=== PATIENT | female | born 1955 | race Caucasian/White ===

== ENCOUNTER → 2021-12-13 | Outpatient (CLI) | payer MEDICARE, OTHER, SELFPAY | END | disposition home or self-care (01) | LOC: LABSPEC 16:55 | PROVIDERS: Visit Provider Urology | DX: R31.21 Asymptomatic microscopic hematuria (principal) | CPT/HCPCS: 87086; 87088 ==

== ENCOUNTER → 2024-04-04 | Outpatient (CLI) | payer MEDICARE, OTHER, SELFPAY ==
--- NOTE | 2024-04-04 15:00 | CT_ITS ---
STUDY: CARDIAC CALCIUM SCORING - CT CHEST REASON FOR EXAM: Female, 68 years old. VASCULAR DISEASE RADIATION DOSAGE (If Supplied By Facility): CTDIvol = ( 12.19 ) mGy, DLP = ( 219.42 ) mGycm TECHNIQUE: Axial non-enhanced images were acquired through the heart for the sole purpose of measuring coronary artery calcium. Individualized dose optimization techniques were used for this CT. COMPARISON: None. FINDINGS: Visualized surrounding anatomy: No acute disease. Left Main Coronary Artery: 0 Left Anterior Descending Artery: 173 Left Circumflex Artery: 0 Right Coronary Artery: 0 Other: Mild calcific plaquing of the thoracic aorta without evidence for aneurysm Total Calcium Score: 173 CT/Limited Chest CT Cardiac Only IMPRESSION: A Calcium Score of 173 places the patient in the approximate 75-90 percentile, based on the [employer] data calculator. Please go to: [email or web address] , for a description of the calculator. Electronically Signed: Ahmet Martínez MD at 16:23 [facility] ,
--- NOTE | 2024-04-18 08:28 | CA.SCORE ---
Calcium Scoring Date of Study:: 04/04/24 Indications Indications: Vascular disease Coronary Calcium Scoring: High-resolution Computed Tomographic imaging of the chest was performed on [04/04/2024], with particular attention paid to the coronary arteries. Images from the examination were analyzed for the presence and extent of coronary artery calcification , using coronary calcium quantification software. The patient tolerated the procedure well and there were no complications. The results of the coronary calcification analysis are provided below. Findings Coronary Artery Left Main (LM): 0 Left Anterior Descending (LAD): 173 Left Circumflex (LCX): 0 Right Coronary Artery (RCA): 0 Total Agatston Score: 173 Percentile Rankinth and 90th percentile Calcium Scoring Interpretation: Different methods to categorize the overall amount of coronary plaque. Overall amount CAC SIS Visual of coronary plaque P1 Mild -100 <2 1-2 vessels with mild amount of plaque P2 Moderate 101-300 3-4 1-2 vessels with moderate amount, 3 vessels with mild amount of plaque P3 Severe 301-999 5-7 3 vessels with moderate amount, 1 vessel with severe amount of plaque P4 Extensive >1000 >8 2-3 vessels with severe amount of plaque Calcium Score: Moderate: 1-2 vessels w/moderate amt, 3 vessels w/mild amt of plaque Conclusion: Mild atherosclerotic disease involving the left anterior descending artery with calcification.
== END | disposition home or self-care (01) ==
PROVIDERS: PCP Preventive Medicine Occupational Medicine; Referring Provider Physician Assistant; Visit Provider Physician Assistant
DX: I70.90 Unspecified atherosclerosis (principal)
CPT/HCPCS: 75571; 76380

== ENCOUNTER → 2025-03-25 | Outpatient (CLI) | payer MEDICARE, OTHER, SELFPAY ==
--- OUTSIDE RECORDS SUMMARY | 2025-03-25 07:10 | XMS RPT_ITS | CCD ---
Author Organization [facility] Care Team Providers Care In School Suspension Aide Name Role Phone RADHA VELASQUEZ DO Primary Care Physician [phone] Unknown, Referring Provider Unavailable Unav ailable Aimee, Dr. Francisco Galvan Attending Unavailable UNKNOWN, PCP Primary Care Unavailable David Frazier Admitting Unavailable David Frazier Referring Unavailable Aimee, Dr. Francisco Galvan Attending Unavailable UNKNOWN, PCP Primary Care Unavailable Unavailable Primary Care Provider Unavailchucky e SINDHU QUINN, RADHA Primary Care Unavailable MEAGHAN ROWELL MD Attending Unavailable RADHA VELASQUEZ DO Primary Care Unavailable FLY EDUARDO MD Consulting Unavailable FLY EDUARDO MD Attending Unavailable SINDHU QUINN, RADHA Primary Care Unavailable MEAGHAN ROWELL MD Attending Unavailable SINDHU QUINN, RADHA Primary Care Unavailable MEAGHAN ROWELL MD Attending Unavailable RADHA VELASQUEZ DO Primary Care Unavailable RADHA VELASQUEZ DO Attending Unavailable RADHA VELASQUEZ DO Attending Unavailable RADHA VELASQUEZ DO Primary Care Unavailable SINDHU QUINN, RADHA Primary Care Unavailable REMINGTON HAMPTON MD Attending Unavailable SINDHU QUINN, RADHA Primary Care Unavailable RADHA VELASQUEZ DO Attending Unavailable RADHA VELASQUEZ DO Primary Care Unavailable RADHA VELASQUEZ DO Attending Unavailable RADHA VELASQUEZ DO Primary Care Unavailable DANIELLA JOSEPH DO Attending Unavailable DANIELLA JOSEPH DO Attending Unavailable RADHA VELASQUEZ DO Primary Care Unavailable DANIELLA JOSEPH DO Attending Unavailable RADHA VELASQUEZ DO Primary Care Unavailable Dr. Radha Velasquez DO Referring Provider Jake SIDHU, Dr. Alonso Attending Physician [phone] Dr. Daniella Joseph DO Primary Care Physician Gavin Joseph Attending Unavailable Gavin Joseph Referring Unavailable Daniella Joseph Primary Care Unavailable Carine Saleem Attending Unavailable Carine Saleem Referring Unavailable Radha Velasquez Primary Care Unavailable Zia Stanley Attending Unavailable Carine Saleem Consulting Unavailable Carine Saleem Referring Unavailable Radha Velasquez Primary Care Unavailable Radha Velasquez Primary Care Unavailable Zia Stanley Attending Unavailable Carine Saleem Referring Unavailable Radha Velasquez Referring Unavailable Gavin Joseph Attending Unavailable Daniella Joseph Primary Care Unavailable Allergies Allergy Classification Reported Allergen(s) Allergy Type Date of Onset Reaction(s) Facility (1 source) ALLERGIES NOT ON FILE; Translations: [ALLERGIES NOT ON FILE] Propensity to adverse reactions (disorder) [facility] Medications Current Medications Medication Drug Class(es) Dates Sig (Normalized) Sig (Original) acetaminophen 325 mg / HYDROcodone bitartrate 5 mg oral tablet (1 source) Opioid Agonist Start: 02-04-2024 End: 02-07-2024 take 1 tablet by mouth every six hours as needed for pain Crawford 325- 5 mg oral tablet Dose = 1 tab(s), Oral, q6h, PRN as needed for pain, X 3 day(s), # 12 tab(s), 0 Refill(s), Back pain, 70.5 Start Date: 02/04/24 Stop Date: 02/07/24 Status: Ordered aspirin 81 mg delayed release oral tablet (3 sources) Platelet Aggregation Inhibitor, Nonsteroidal Anti-inflammatory Drug Start: 03-11-2024 aspirin 81 mg oral delayed release tablet Dose : 81 mg = 1 tab(s), Oral, Daily, 0 Refill(s) Start Date: 11/13/24 Status: Ordered Medication Dispense Status: Completed Total Allowed Fills: 1 Fills Dispensed: 0 clobetasol propionate 0.5 mg/ml topical cream (14 sources) Corticosteroid Start: 02-25-2025 Start: 02-22-2024 End: 02-25-2025 Clobetasol 0.05 % cream Disc ontinued 1 NMA TOPICAL TWICE A DAY February 22, 2024 12:00am February 25, 2025 2:29pm Start: 07-24-2022 End: 09-22-2022 clobetasol 0.05% topical cre am Apply 1 gretchen, Topical, BID, # 60 gram(s), 1 Refill(s), KRANTHI, Pharmacy: [id number], Cream, 163, cm, 07/24/22 10:51:00 EDT, Height, 69.1 Start Date: 07/24/22 Stop Date: 09/22/22 Status: Ordered estradiol 0.1 mg/ml vaginal cream (2 sources) Estrogen Start: 02-12-2019 estradiol 0.1 mg/g vaginal cream 0 Refill(s) Start Date: 02/12/19 Status: Ordered estradiol 0.1 mg/g vaginal cream (3 sources) Start: 02-12-2019 estradiol 0.1 mg/g vaginal cream 0 Refill(s) Start Date: 02/12/19 Status: Ordered fluconazole 100 mg oral tablet (1 source) Azole Antifungal Start: 05-02-2022 End: 05-11-2022 fluconazole 100 mg oral tablet See Instructions, 2 tabs p.o. day 1 then 1 tab p.o. days 2 through 10, # 11 tab(s), 0 Refill(s), 05/11/22 15:42:00 EST, Pharmacy: [facility] #[id number], Tinea cruris, 162.5, cm, 05/02/22 14:54:00 EST, Height, 67 Start Date: 05/02/22 Stop Date: 05/11/22 Status: Ordered meloxicam 15 mg oral tablet (1 source) Nonsteroidal Anti-inflammatory Drug Start: 09-29-2021 End: 01-27-2022 meloxicam 15 mg oral tablet Dose : 15 mg = 1 tab(s), Oral, qDay, # 30 tab(s), 3 Refill(s), Pharmacy: [facility], 164, cm, 09/27/21 11:05:00 EDT, Height Start Date: 09/29/21 Stop Date: 01/27/22 Status: Ordered 24 hr mirabegron 50 mg extended release oral tablet (20 sources) beta3-Adrenergic Agonist Start: 01-30-2024 End: 01-24-2025 take 1 tablet by mouth once daily Start: 12-22-2022 End: 12-17-2023 take 1 tablet by mouth once daily Myrbetriq 50 mg oral tablet, extended release Dose : 50 mg =, Oral, qDay, # 90 tab(s), 3 Refill(s), [facility]acy: [facility] #[id number], 163.2, cm, 11/20/22 9:43:00 EDT, Height, kg, 11/20/22 9:43:00 EDT, Dosing Weight Start Date: 12/22/22 Stop Date: 12/17/23 Status: Ordered Start: 05-02-2022 take 1 tablet by cheryl th once daily Myrbetriq 50 mg oral tablet, extended release Dose : 50 mg =, Oral, qDay, # 90 tab(s), 0 Refill(s) Start Date: 05/02/22 Status: Ordered Start: 07-04-2019 take 1 tablet by cheryl th once daily Myrbetriq 25 mg oral tablet, extended release Dose : 25 mg =, Oral, qDay, 0 Refill(s) Start Date: 07/04/19 Status: Ordered ondansetron 4 mg disintegrating oral tablet (1 source) Serotonin-3 Receptor Antagonist Start: 02-04-2024 End: 02-08-2024 ondansetron 4 mg oral tablet, disintegrating Dose : 4 mg = 1 tab(s), Oral, q6h, PRN Nausea/Vomiting, X 4 day(s), # 12 tab(s), 0 Refill(s), 02/08/24 11:18:00 AM EDT Start Date: 02/04/24 Stop Date: 02/08/24 Status: Ordered rosuvastatin calcium 10 mg oral tablet (5 sources) HMG-CoA Reductase Inhibitor Start: 02-20-2025 rosuvastatin 10 mg o ral tablet Dose : 10 mg = 1 tab(s), Oral, qDay, # 90 tab(s), 3 Refill(s), Pharmacy: [facility] #30, Hyperlipidemia LDL goal Start Date: 02/20/25 Status: Ordered Medication Dispense Status: Completed Quantity: 90.0 Unit: tab(s) Total Allowed Fills: 4 Fills Dispensed: 0 Indications: Hyperlipidemia, unspecified; Start: 01-30-2024 End: 03-30-2024 rosuvastatin 10 mg oral tabl et Dose : 10 mg = 1 tab(s), Oral, qDay, # 90 tab(s), 3 Refill(s), Pharmacy: [facility] #30, Hyperlipidemia LDL goal Start Date: 04/03/24 Status: Ordered Medication Dispense Status: Completed Quantity: 90.0 Unit: tab(s) Total Allowed Fills: 4 Fills Dispensed: 0 Indications: Hyperlipidemia, unspecified; ubrogepant 100 mg oral tablet (1 source) Start: 02-25-2025 take 1 tablet by mouth once valACYclovir 1000 mg oral tablet (20 sources) Herpesvirus Nucleoside Analog DNA Polymerase Inhibitor, Herpes Simplex Virus Nucleoside Analog DNA Polymerase Inhibitor, Herpes Zoster Virus Nucleoside Analog DNA Polymerase Inhibitor Start: 02-22-2024 Start: 08-01-2023 End: 03-27-2026 valACYclovir 1 g oral tablet Dose : 1 gram(s) = 1 tab(s), Oral, qDay, # 100 tab(s), 3 Refill(s), Pharmacy: [facility]30, Recurrent herpes labialis, 160, cm, 11/13/24 15:56:00 EDT, Height, 69.9, kg, 02/20/25 9:53:00 EDT, Dosing Weight Start Date: 02/20/25 Stop Date: 03/27/26 Status: Ordered Medication Dispense Status: Completed Quantity: 100.0 Unit: tab(s) Total Allowed Fills: 4 Fills Dispensed: 0 Indications: Herpesviral vesicular dermatitis; Start: 05-02-2022 End: 07-19-2023 valACYclovir 1 g oral tablet Dose : 1 gram(s) = 1 tab(s), Oral, qDay, # 90 tab(s), 3 Refill(s), Pharmacy: [facility]30, 163, cm, 07/24/22 10:51:00 EDT, Height, 69.1, kg, 07/24/22 10:51:00 EDT, Dosing Weight Start Date: 07/24/22 Stop Date: 07/19/23 Status: Ordered Start: 04-27-2021 End: 04-22-2022 valACYclovir 1 g oral tablet Dose : 1 gram(s) = 1 tab(s), Oral, qDay, # 90 tab(s), 3 Refill(s), Pharmacy: [facility] #30, 165.1, cm, 08/17/20 16:00:00 EDT, Height, 62.5, kg, 08/17/20 16:00:00 EDT, Dosing Weight Start Date: 04/27/21 Stop Date: 04/22/22 Status: Ordered Completed/Discontinued Medications Medication Drug Class(es) Dates Sig (Normalized) Sig (Original) alendronic acid 35 mg oral tablet (2 sources) Bisphosphonate Start: 05-31-2021 take 6-8 [oz_av] by mouth once daily alendronate 35 mg oral tablet Dose : 35 mg = 1 tab(s), Oral, qWeek, with 6-8 oz plain water, at least 30 minutes before first food, beverage, or medication of the day, # 4 tab(s), 5 Refill(s), Pharmacy: [facility]30, Osteopenia, 165.1, cm, 08/17/20 16:00:00 EDT, Heig... Start Date: 05/31/21 Status: Ordered baclofen 5 mg oral tablet (2 sources) gamma-Aminobutyric Acid-ergic Agonist Start: 02-22-2024 End: 03-11-2024 take 5 mg by mouth three times daily Baclofen 5 mg granules in packet Discontinued 5 mg PO THREE TIMES A DAY February 22, 2024 12:00am March 11, 2024 10:01am Start: 02-07-2024 End: 02-14-2024 baclofen 10 mg oral tablet D ose : 10 mg = 1 tab(s), Oral, TID, # 21 tab(s), 0 Refill(s), Pharmacy: [facility] #[id number], 163, cm, 02/06/24 13:05:00 EDT, Height, kg, 02/06/24 13:05:00 EDT, Dosing Weight Start Date: 02/07/24 Stop Date: 02/14/24 Status: Ordered celecoxib 200 mg oral capsule (15 sources) Nonsteroidal Anti-inflammatory Drug Start: 01-30-2024 End: 02-25-2025 take 1 capsule by mouth twice daily as needed Celecoxib 200 mg capsule Discontinued 200 mg PO TWICE A DAY as needed March 11, 2024 10:00am February 25, 2025 2:27pm Start: 10-02-2022 End: 11-01-2022 celecoxib 200 mg oral capsul e Dose : 200 mg = 1 cap(s), Oral, BID, PRN as needed for pain, # 180 cap(s), 1 Refill(s), Pharmacy: [facility] #30, 163.5, cm, 10/02/22 9:03:00 EDT, Height Start Date: 10/02/22 Stop Date: 11/01/22 Status: Ordered Start: 05-02-2022 celecoxib 200 mg oral capsule Dose : 200 mg = 1 cap(s), Oral, BID, # 60 cap(s), 1 Refill(s), Pharmacy: [id number], Right wrist pain, 162.5, cm, 05/02/22 14:54:00 EST, Height Start Date: 05/02/22 Status: Ordered diclofenac sodium 75 mg delayed release oral tablet (2 sources) Nonsteroidal Anti-inflammatory Drug Start: 02-22-2024 End: 03-11-2024 take 1 tablet by mouth twice daily Diclofenac Sodium 75 mg tablet,delayed release (DR/EC) Discontinued 75 mg PO TWICE A DAY February 22, 2024 12:00am March 11, 2024 10:01am Start: 02-06-2024 End: 02-20-2024 diclofenac sodium 75 mg oral delayed release tablet Dose : 75 mg = 1 tab(s), Oral, BID, Take with food Do not take with Celebrex, # 28 tab(s), 0 Refill(s), Pharmacy: [facility]/pharmacy #[id number], 163, cm, 02/06/24 13:05:00 EDT, Height, kg, 02/06/24 13:05:00 EDT, Dosing Weight Start Date: 02/06/24 Stop Date: 02/20/24 Status: Ordered SUMAtriptan 100 mg oral tablet (17 sources) Serotonin-1b and Serotonin-1d Receptor Agonist Start: 03-11-2024 End: 02-25-2025 take 1 tablet by mouth once as needed Sumatriptan Succinate 100 mg tablet Discontinued 100 mg PO ONCE as needed March 11, 2024 12:00am February 25, 2025 2:28pm Start: 08-01-2023 take 1 tablet by cheryl th every twenty-four hours SUMAtriptan 100 mg oral tablet Dose : 100 mg = 1 tab(s), Oral, qDay, PRN as needed for migraine headache, may repeat dose after 2 hours up to a maximum of 200 mg in 24 hours, # 30 tab(s), 2 Refill(s), Pharmacy: [facility], Migraine, 161.5, cm, 08/01/23 9:35:00 EDT, Height, kg, 08/01/23 9:35:00 EDT, Dosing Weight Start Date: 08/01/23 Status: Ordered Start: 01-19-2023 take 1 tablet by cheryl th every twenty-four hours SUMAtriptan 100 mg oral tablet Dose : 100 mg = 1 tab(s), Oral, qDay, PRN as needed for migraine headache, may repeat dose after 2 hours up to a maximum of 200 mg in 24 hours, # 30 tab(s), 1 Refill(s), Pharmacy: [facility] #30, 163, cm, 01/01/23 9:47:00 EDT, Height, kg, 01/01/23 9:47:00 EDT, Dosing Weight Start Date: 01/19/23 Status: Ordered Start: 05-02-2022 take 1 tablet by cheryl th every twenty-four hours SUMAtriptan 100 mg oral tablet Dose : 100 mg = 1 tab(s), Oral, qDay, PRN as needed for migraine headache, may repeat dose after 2 hours up to a maximum of 200 mg in 24 hours, # 30 tab(s), 1 Refill(s) Start Date: 05/02/22 Status: Ordered Start: 04-27-2021 take 1 tablet by cheryl th every twenty-four hours SUMAtriptan 100 mg oral tablet Dose : 100 mg = 1 tab(s), Oral, qDay, PRN as needed for migraine headache, may repeat dose after 2 hours up to a maximum of 200 mg in 24 hours, # 30 tab(s), 1 Refill(s), Pharmacy: [facility] #30, 165.1, cm, 08/17/20 16:00:00 EDT, Height, k... Start Date: 04/27/21 Status: Ordered Problems Active Problems Problem Classification Problem Date Documented Date Episodic/Chronic Acute cerebrovascular disease (20 sources) Occlusion and stenosis of middle cerebral artery; Translations: [Occlusion and stenosis of right middle cerebral artery] Onset: 11-01-2022 Chronic Blindness and vision defects (16 sources) Diplopia; Translations: [Diplopia] 07-04-2022 Episodic Conditions associated with dizziness or vertigo (2 sources) Lightheadedness 11-20-2024 Episodic Coronary atherosclerosis and other heart disease (3 sources) Coronary arteriosclerosis; Translations: [Atherosclerotic heart disease of [place] coronary artery without angina pectoris] Onset: 03-15-2025 02-25-2025 Chronic Disorders of lipid metabolism (20 sources) Hyperlipidemia; Translations: [Dyslipidemia] 09-28-2021 Chronic Headache; including migraine (20 sources) Migraine; Translations: [Migraine, unspecified, not intractable, without status migrainosus] 02-12-2019 Chronic Heart valve disorders (1 source) Nonrheumatic aortic (valve) stenosis; Translations: [Nonrheumatic aortic (valve) stenosis] Onset: 12-25-2024 Chronic Mycoses (1 source) Tinea cruris 05-02-2022 Episodic Other and ill-defined cerebrovascular disease (4 sources) Aneurysm of middle cerebral artery 08-01-2022 Chronic Other and ill-defined cerebrovascular disease (6 sources) Intracranial aneurysm; Translations: [Cerebral aneurysm, nonruptured] Chronic Other and ill-defined cerebrovascular disease (4 sources) Cerebral aneurysm, nonruptured; Translations: [Cerebral aneurysm, nonruptured] Onset: 11-01-2022 Chronic Other and ill-defined cerebrovascular disease (1 source) Cerebral arterial aneurysm; Translations: [Cerebral aneurysm, nonruptured] 11-01-2022 Chronic Other bone disease and musculoskeletal deformities (18 sources) Osteopenia 05-31-2021 Episodic Other connective tissue disease (1 source) Impingement syndrome of left shoulder region; Translations: [Impingement syndrome of left shoulder] Episodic Other diseases of bladder and urethra (4 sources) Overactive bladder 01-30-2024 Chronic Other female genital disorders (11 sources) Lesion of vulva 07-04-2022 Episodic Other nervous system disorders (16 sources) Paresthesia of right lower limb 05-02-2022 Episodic Other nervous system disorders (15 sources) Paresthesia of hand 07-04-2022 Episodic Other nervous system disorders (1 source) Paresthesia of skin; Translations: [Paresthesia of both hands] 02-22-2024 Episodic Other non-traumatic joint disorders (16 sources) Pain in wrist 05-02-2022 Episodic Other non-traumatic joint disorders (1 source) Pain of right wrist; Translations: [Pain in right wrist] 02-22-2024 Episodic Other screening for suspected conditions (not mental disorders or infectious disease) (11 sources) Magnetic resonance imaging of brain abnormal; Translations: [Stool DNA-based colorectal cancer screening positive] 07-20-2022 Episodic Peripheral and visceral atherosclerosis (3 sources) Arteriosclerotic vascular disease; Translations: [Unspecified atherosclerosis] Onset: 05-01-2024 03-11-2024 Chronic Residual codes; unclassified (4 sources) Immunization due 02-25-2020 Episodic Residual codes; unclassified (4 sources) Postmenopausal state 04-27-2021 Episodic Residual codes; unclassified (1 source) Past history of procedure; Translations: [Other specified postprocedural states] Episodic Residual codes; unclassified (1 source) Requires influenza virus vaccination 02-20-2025 Episodic Spondylosis; intervertebral disc disorders; other back problems (7 sources) Backache; Translations: [Dorsalgia, unspecified] Onset: 02-04-2024 Episodic Sprains and strains (1 source) Strain of muscle(s) and tendon(s) of the rotator cuff of left shoulder, subsequent encounter; Translations: [Left rotator cuff strain] Episodic Unclassified (20 sources) Patient encounter status 02-12-2019 Unclassified (15 sources) Statin declined 05-05-2021 Unclassified (13 sources) Tendinitis of shoulder region 07-04-2022 Unclassified (11 sources) Lichen sclerosus of vulva 08-21-2022 Unclassified (1 source) Mild aortic valve stenosis 12-26-2024 Viral infection (20 sources) Recurrent herpes simplex labialis 02-12-2019 Episodic Past or Other Problems Problem Classification Problem Date Documented Da te Episodic/Chronic Other skin disorders (2 sources) Rash and other nonspecific skin eruption; Translations: [Rash and other nonspecific skin eruption] Onset: 01-01-2023 Episodic Results Test Name Value Interpretation Reference Range Facility BD BONE DENSITY DEXA AXIAL S KELETONon 03-04-2025 BD BONE DENSITY DEXA AXIAL SKELETON ORIGINAL EXAMINATION: BONE DENSITOMETRY 03/04/2025 2:17 pm TECHNIQUE: A bone density dual x-ray absorptiometry (DEXA) scan was performed of the axial (e.g. hips, spine) and/or appendicular (e.g. radius) skeleton as appropriate. COMPARISON: 05/16/2021 HISTORY: ORDERING SYSTEM PROVIDED HISTORY: Reason for Exam: Osteoporosis Screening FINDINGS: T Score Left Femoral Neck: -1.6 Left Femoral Neck: 0.668 (g/cm2) T Score Left Hip: -0.7 Left Hip: 0.862 (g/cm2) T Score Lumbar Spine: -1.4 Lumbar Spine: 0.893 (g/cmd2) BMD Change from previous Hip: No significant change. BMD Change from previous Lumbar Spine: 0.034, 4% FRAX: 10 year fracture risk assessment Major osteoporotic fracture: 10% Hip fracture: 1.6% IMPRESSION: Osteopenia by WHO criteria. World Health Organization criteria: (Comparing with young normal sex matched population) - Normal: T-score at or above -1 SD (standard deviation) - Osteopenia: T-score between -1 and -2.5 SD - Osteoporosis: T-score at or below -2.5 SD The NOF recommends that FDA-approved medical therapies be considered in post-menopausal women and men age >/= 50 years with a: * Hip or vertebral fracture, or * T-score of /= 20% for major osteoporotic fractures or * >/= 3% for hip fractures All treatment decisions require clinical judgement and consideration of individual patient factors, including patient preferences, comorbidities, previous drug use, risk factors not captured in the FRAX registered model (e.g., frailty, falls, vitamin D deficiency, increased bone turnover, interval significant decline in bone density) and possible under- or over-estimation of fracture risk by FRAX. Interpreted by: Fly Weaver DO Preliminary Report By: Fly Weaver DO Electronically signed By Fly Weaver DO Dictated Date: 03/04/2025 3:22:16 PM Prelim Date: 03/04/2025 3:23:15 PM Sign Date: 03/04/2025 3:23:15 PM Ordering Provider: DANIELLA JOSEPH RP [facility] Cardiology Visit Reporton Cardiology Visit Report [facility] [address] [place] [address] OFFICE VISIT Date of Service: 02/25/25 MR#: [id number] Acct: [id number] Name: CYNDIE ROYAL Rep #: [id number] : 1955 Provider: Dr. Gavin Joseph MD Age/Sex: 69/F [place] [facility] [place] Status: Signed HPI HPI History of Present Illness Details: This lady diagnosed with CAD on calcium artery scoring last year, is here for follow-up visit. Denies any chest pains or shortness of breath. No orthopnea PND. No ankle edema. 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 Accompanied by: Self Is patient in pain?: No Allergies No Known Allergies Allergy (Unverified 02/25/25 14:27) Medications ???Medication ???Instructions ???Recorded ???Confirmed ???Type mirabegron 50 mg tablet,extended 50 mg PO QDAY 02/22/24 02/25/25 Hi story release 24 hr rosuvastatin 10 mg tablet 10 mg PO QDAY 02/22/24 02/25/25 Hi story valacyclovir 1 gram tablet 1,000 mg PO QDAY 02/22/24 02/25/25 History aspirin 81 mg tablet,delayed 81 mg PO QDAY 03/11/24 02/25/25 Hi story release (Adult Aspirin Regimen) clobetasol 0.05 % topical cream 1 applic topical .three times a 02/25/25 History week ubrogepant 100 mg tablet (Ubrelvy) 100 mg PO ONCE 02/25/25 02/25/25 History Have you fallen in the past year?: No PFSH Medical History Stroke Osteopenia Overactive bladder Lichen sclerosus of vulva Left shoulder tendonitis Surgical History History of cholecystectomy H/O hernia repair Family History Mother Malignant carcinoid tumor of lung Social History current occupational status: employed current occupation: School leisure activities: exercise Smoking Status: Never smoker alcohol intake: never substance use type: does not use caffeine: Yes what type of physical activity do you participate in: walking frequency: 3-4 times per week ROS Const Const: Negative for fatigue or weakness Eyes Eyes: Negative for change in vision ENT ENT: Negative for dizziness or balance problems Cardio Chest Pain: No Palpitations: No Edema: None Resp Respiratory: Negative for SOB with activity, SOB at rest or SOB orthopnea SOB lying down GI GI: Negative nausea or heartburn Musc Musc: Negative for balance problems Neuro Neuro: Positive for lightheadedness; Negative for dizziness, near syncope, syncope or weakness Endo Endo: Negative for fatigue Cardiology Exam Const Appearance: comfortable and no acute distress Nutritional Appearance: well nourished Neck Neck: no JVD Carotids: Negative bruit Chest Auscultation: Bilateral: Clear to Auscultation Cardio Rate: regular rate Rhythm: regular rhythm Heart sounds: S1 normal and S2 normal Neuro General: patient alert, patient awake and patient oriented x3 Extremities Lower Extremity Edema: None: Bilateral Supplemental Info Supplemental Information Diagnostics: Electrocardiogram Coronary Angiography CT Past Visits: Cardiology Visit Today Assessment and Plan Assessment and Plan (1) Coronary artery disease: Status: Chronic Plan: Continue aspirin. Risk factor modification. Check exercise stress Myoview to evaluate physiological significance and rule out silent ischemia. (2) Dyslipidemia: Status: Chronic Plan: Rosuvastatin. PCP managing. Recommend target LDL cholesterol less than 70 mg/dL. 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 Plan Details Follow Up: 12 Months Coding Level of Care Code Off vis,est,level 4 Diagnoses Coronary artery disease I25.10 Dyslipidemia E78.5 Occlusion of right middle cerebral artery I66.01 Coding Level of Care Code Off vis,est,level 4 Diagnoses Coronary artery disease I25.10 Dyslipidemia E78.5 Occlusion of right middle cerebral artery I66.01 Clinical Quality Measures Falls Risk Screening/Assistive Devices Have you fallen in the past year?: No 02/25/25 1440 Date Gavin Joseph MD Cosigner Signature: Date (if applicable) CC: Dr. Daniella Joseph, [facility] .Auto Diffon 02-23-2025 Basophil, Absolute 0.1 10 3/mcL Normal 0.0-0.3 [facility] Comment on above: Performed By: #### M G, LIPID, CMP, FT4, VIDH, CBC, GFR, TSHR, ANEU, ADIFF #### [place] [address] #### B12 #### [place] [address] Lymphocyte, Absolute 1.6 10 3/mcL Normal 0.9-4.3 [facility] Comment on above: Performed By: #### M G, LIPID, CMP, FT4, VIDH, CBC, GFR, TSHR, ANEU, ADIFF #### [address] [address] #### B12 #### [place] [address] Monocyte, Absolute 0.6 10 3/mcL Normal 0.1-1.4 [facility] Comment on above: Performed By: #### M G, LIPID, CMP, FT4, VIDH, CBC, GFR, TSHR, ANEU, ADIFF #### [place] [address] #### B12 #### [place] [address] .Auto DiffOrdered By: SYSTEM SYSTEM on 02-23-2025 Basophils/100 WBC (Bld) 1.5 % Normal 0.0-2.5 AO Workflow SS Comment on above: Performed By: #### M G, LIPID, CMP, FT4, VIDH, CBC, GFR, TSHR, ANEU, ADIFF #### [address] [address] #### B12 #### [address] [address] Eosinophil, Absolute 0.6 103/mcL Normal 0.0-0.7 AO Workflow SS Comment on above: Performed By: #### M G, LIPID, CMP, FT4, VIDH, CBC, GFR, TSHR, ANEU, ADIFF #### [place] [address] #### B12 #### [address] [address] Eosinophils/100 WBC (Bld) 10.3 % High 0.0-6.0 AO Workflow SS Comment on above: Performed By: #### M G, LIPID, CMP, FT4, VIDH, CBC, GFR, TSHR, ANEU, ADIFF #### [address] [address] #### B12 #### [address] [address] Lymphocytes/100 WBC (Bld) 27.4 % Normal 20.0-40.0 AO Workflow SS Comment on above: Performed By: #### M G, LIPID, CMP, FT4, VIDH, CBC, GFR, TSHR, ANEU, ADIFF #### [place] [address] #### B12 #### [address] [address] Monocytes/100 WBC (Bld) 10.8 % Normal 2.0-13.0 AO Workflow SS Comment on above: Performed By: #### M G, LIPID, CMP, FT4, VIDH, CBC, GFR, TSHR, ANEU, ADIFF #### [place] [address] #### B12 #### [address] [address] Neutrophils/100 WBC (Bld) 50.0 % Normal 50.0-75.0 AO Workflow SS Comment on above: Performed By: #### M G, LIPID, CMP, FT4, VIDH, CBC, GFR, TSHR, ANEU, ADIFF #### [address] [address] #### B12 #### [address] [address] .GFRon 02-23-2025 Estimated Glomerular Filtration Rate 94 ml/min/1.73sqm Normal [facility] Comment on above: Result Comment: Stages of Chronic Kidney Disease (CKD) Stage Description eGFR(ml/min/1.73 sq.m.) CKD 1 Normal kidney function or >=90 normal kindney function with possible kidney damage (ex. Proteinuria) CKD 2 Kidney damage with mild loss 60-89 of kidney function CKD 3a Mild to moderate loss of kidney 45-59 function CKD 3b Moderate to severe loss of 30-44 of kindey function CKD 4 Severe loss of kidney function 15-29 CKD 5 Kidney failure <15 Note: (go live 2024) the eGFR calculation was updated to the 2020 CKD-EPI creatinine equation without a race factor to calculate the eGFR results. Performed By: #### L IPID, CMP, GFR #### [address] [address] .NEUABSon 02-23-2025 Neutrophil, Absolute 2.9 10 3/mcL Normal 2.3-8.1 [facility] Comment on above: Performed By: #### M G, LIPID, CMP, FT4, VIDH, CBC, GFR, TSHR, ANEU, ADIFF #### [address] [address] #### B12 #### [address] [address] [id number] By: SYSTEM SYSTEM on 02-23-2025 Cobalamin (Vitamin B12) [Mass/Vol] 297 pg/mL Normal 211-911 AH ADM SS Comment on above: Performed By: #### L IPID, CMP, GFR #### [address] [address] CBCOrdered By: SYSTEM SYSTEM on 02-23-2025 Erythrocyte distribution width (RBC) [Ratio] 13.2 % Normal 11.5-15.5 AO Workflow SS Comment on above: Performed By: #### M G, LIPID, CMP, FT4, VIDH, CBC, GFR, TSHR, ANEU, ADIFF #### [place] [address] #### B12 #### [place] [address] Hematocrit (Bld) [Volume fraction] 40.4 % Normal 34.0-46.0 AO Workflow SS Comment on above: Performed By: #### M G, LIPID, CMP, FT4, VIDH, CBC, GFR, TSHR, ANEU, ADIFF #### [place] [address] #### B12 #### [place] [address] MCH (RBC) [Entitic mass] 34.4 pg High 27.0-33.0 AO Workflow SS Comment on above: Performed By: #### M G, LIPID, CMP, FT4, VIDH, CBC, GFR, TSHR, ANEU, ADIFF #### [place] [address] #### B12 #### [place] [address] MCHC 34.5 G/dL Normal 32.0-36.0 AO Workflow SS Comment on above: Performed By: #### M G, LIPID, CMP, FT4, VIDH, CBC, GFR, TSHR, ANEU, ADIFF #### [place] [address] #### B12 #### [place] [address] MCV (RBC) [Entitic vol] 99.5 fL High 80.0-99.0 AO Workflow SS Comment on above: Performed By: #### M G, LIPID, CMP, FT4, VIDH, CBC, GFR, TSHR, ANEU, ADIFF #### [place] [address] #### B12 #### [place] [address] Platelet mean volume (Bld) [Entitic vol] 7.7 fL Normal 6.6-10.5 AO Workflow SS Comment on above: Performed By: #### M G, LIPID, CMP, FT4, VIDH, CBC, GFR, TSHR, ANEU, ADIFF #### [place] [address] #### B12 #### [place] [address] CBCon 02-23-2025 Hgb 14.0 G/dL Normal 12.0-16.0 [facility] Comment on above: Performed By: #### M G, LIPID, CMP, FT4, VIDH, CBC, GFR, TSHR, ANEU, ADIFF #### [place] [address] #### B12 #### [place] [address] Platelet 284 10 3/mcL Normal 150-450 [facility] Comment on above: Performed By: #### M G, LIPID, CMP, FT4, VIDH, CBC, GFR, TSHR, ANEU, ADIFF #### [place] [address] #### B12 #### [place] [address] RBC 4.06 10 6/mcL Low 4.10-5.30 [facility] Comment on above: Performed By: #### M G, LIPID, CMP, FT4, VIDH, CBC, GFR, TSHR, ANEU, ADIFF #### [place] [address] #### B12 #### [place] [address] WBC 5.8 10 3/mcL Normal 4.5-10.8 [facility] Comment on above: Performed By: #### M G, LIPID, CMP, FT4, VIDH, CBC, GFR, TSHR, ANEU, ADIFF #### [address] [address] #### B12 #### [place] [id number] CMPon 02-23-2025 Albumin Level 3.8 G/dL Normal 3.4-4.8 [facility] Comment on above: Performed By: #### M G, LIPID, CMP, FT4, VIDH, CBC, GFR, TSHR, ANEU, ADIFF #### [place] [address] #### B12 #### [address] [address] ALT [Catalytic activity/Vol] 36 U/L Normal 14-59 [facility] Comment on above: Performed By: #### M G, LIPID, CMP, FT4, VIDH, CBC, GFR, TSHR, ANEU, ADIFF #### [place] [address] #### B12 #### [place] [address] AST [Catalytic activity/Vol] 30 U/L Normal 10-40 [facility] Comment on above: Performed By: #### M G, LIPID, CMP, FT4, VIDH, CBC, GFR, TSHR, ANEU, ADIFF #### [address] [address] #### B12 #### [place] [id number] Bili Total 0.5 mg/dL Normal 0.2-1.0 [facility] Comment on above: Result Comment: Use of this assay is not recommended for patients undergoing treatment with eltrombopag due to the potential for falsely elevated results. Performed By: #### M G, LIPID, CMP, FT4, VIDH, CBC, GFR, TSHR, ANEU, ADIFF #### [place] [id number] #### B12 #### [place] [address] BUN/Creatinine Ratio 24 ratio Normal 7-27 [facility] Comment on above: Performed By: #### M G, LIPID, CMP, FT4, VIDH, CBC, GFR, TSHR, ANEU, ADIFF #### [address] [address] #### B12 #### [address] [address] Total Protein 6.8 G/dL Normal 6.4-8.2 [facility] Comment on above: Performed By: #### M G, LIPID, CMP, FT4, VIDH, CBC, GFR, TSHR, ANEU, ADIFF #### [address] [address] #### B12 #### [address] [address] CMPOrdered By: SYSTEM SYSTEM on 02-23-2025 Albumin/Globulin [Mass ratio] 1.3 {ratio} Normal 1.1-2.5 AO ADM SS Comment on above: Performed By: #### M G, LIPID, CMP, FT4, VIDH, CBC, GFR, TSHR, ANEU, ADIFF #### [address] [address] #### B12 #### [address] [address] ALP [Catalytic activity/Vol] 82 U/L Normal 40-135 AO ADM SS Comment on above: Performed By: #### M G, LIPID, CMP, FT4, VIDH, CBC, GFR, TSHR, ANEU, ADIFF #### [address] [address] #### B12 #### [address] [address] Calcium [Mass/Vol] 9.0 mg/dL Normal 8.4-10.2 AO ADM SS Comment on above: Performed By: #### M G, LIPID, CMP, FT4, VIDH, CBC, GFR, TSHR, ANEU, ADIFF #### [address] [address] #### B12 #### [address] [address] Chloride [Moles/Vol] 104 mmol/L Normal 98-107 AO A DM SS Comment on above: Performed By: #### M G, LIPID, CMP, FT4, VIDH, CBC, GFR, TSHR, ANEU, ADIFF #### [address] [address] #### B12 #### [place] [address] CO2 [Moles/Vol] 32 mmol/L High 23-31 AO ADM SS Comment on above: Performed By: #### M G, LIPID, CMP, FT4, VIDH, CBC, GFR, TSHR, ANEU, ADIFF #### [place] [address] #### B12 #### [place] [address] Creatinine [Mass/Vol] 0.66 mg/dL Normal 0.51-0.95 AO ADM SS Comment on above: Performed By: #### M G, LIPID, CMP, FT4, VIDH, CBC, GFR, TSHR, ANEU, ADIFF #### [place] [address] #### B12 #### [place] [address] Electrolyte Balance 4.0 mEq/L Normal 4.0-15.0 AO AD M SS Comment on above: Performed By: #### M G, LIPID, CMP, FT4, VIDH, CBC, GFR, TSHR, ANEU, ADIFF #### [place] [address] #### B12 #### [place] [address] Globulin 3.0 G/dL Normal 2.7-4.4 AO ADM SS Comment on above: Performed By: #### M G, LIPID, CMP, FT4, VIDH, CBC, GFR, TSHR, ANEU, ADIFF #### [place] [address] #### B12 #### [facility] [address] [place], [place] [address] Glucose [Mass/Vol] 100 mg/dL Normal 83-110 AO ADM SS Comment on above: Performed By: #### M G, LIPID, CMP, FT4, VIDH, CBC, GFR, TSHR, ANEU, ADIFF #### [address] [address] #### B12 #### [address] [address] Potassium [Moles/Vol] 4.1 mmol/L Normal 3.5-5.1 AO ADM SS Comment on above: Performed By: #### M G, LIPID, CMP, FT4, VIDH, CBC, GFR, TSHR, ANEU, ADIFF #### [place] [address] #### B12 #### [place] [address] Sodium [Moles/Vol] 140 mmol/L Normal 136-145 AO ADM SS Comment on above: Performed By: #### M G, LIPID, CMP, FT4, VIDH, CBC, GFR, TSHR, ANEU, ADIFF #### [place] [address] #### B12 #### [place] [address] Urea nitrogen [Mass/Vol] 16 mg/dL Normal 7-18 AO ADM SS Comment on above: Performed By: #### M G, LIPID, CMP, FT4, VIDH, CBC, GFR, TSHR, ANEU, ADIFF #### [place] [address] #### B12 #### [place] [address] [id number] By: SYSTEM SYSTEM on 02-23-2025 Free T4 [Mass/Vol] 0.87 ng/dL Normal 0.76-1.46 AO ADM SS Comment on above: Order Comment: Order ed by Discern Performed By: #### L IPID, CMP, GFR #### [place] [address] LABORATORYOrdered By: SYSTEM SYSTEM on 02-23-2025 25-hydroxyvitamin D3 [Mass/Vol] 33.6 ng/mL Invalid Interpretation Code AO ADM SS Comment on above: Interpretive Data: I nterpretive Values Based on Total 25(OH) Vitamin D: Deficient <20 ng/mL Insufficient 20 - <30 ng/mL Sufficient 30-100 ng/mL Albumin BCP dye [Mass/Vol] 3.8 G/dL Normal 3.4 - 4.8 G/dL AO ADM SS ALT With P-5'-P [Catalytic activity/Vol] 36 U/L Normal 14 - 59 U/L AO ADM SS AST With P-5'-P [Catalytic activity/Vol] 30 U/L Normal 10 - 40 U/L AO ADM SS Basophils (Bld) [#/Vol] 0.1 103/mcL Normal 0.0 - 0.3 10^3/mcL AO Workflow SS Bilirubin [Mass/Vol] 0.5 mg/dL Normal 0.2 - 1 .0 mg/dL AO ADM SS Comment on above: Interpretive Data: U se of this assay is not recommended for patients undergoing treatment with eltrombopag due to the potential for falsely elevated results. GLOMERULAR FILTRATION RATE/1.73 SQ M.PREDICTED:ARVRAT:PT :SER/PLAS/BLD:QN:CREA TININE-BASED FORMULA (CKD-EPI 2020) 94 ml/min/1.73sqm Invalid Interpretation Code AO Chemistry S Comment on above: Interpretive Data: Stages of Chronic Kidney Disease (CKD) Stage Description eGFR(ml/min/1.73 sq.m.) CKD 1 Normal kidney function or >=90 normal kindney function with possible kidney damage (ex. Proteinuria) CKD 2 Kidney damage with mild loss 60-89 of kidney function CKD 3a Mild to moderate loss of kidney 45-59 function CKD 3b Moderate to severe loss of 30-44 of kindey function CKD 4 Severe loss of kidney function 15-29 CKD 5 Kidney failure <15 Note: (go live 2024) the eGFR calculation was updated to the 2020 CKD-EPI creatinine equation without a race factor to calculate the eGFR results. Hemoglobin (Bld) [Mass/Vol] 14.0 G/dL Normal 12.0 - 16.0 G/dL AO Workflow SS Lymphocytes (Bld) [#/Vol] 1.6 103/mcL Normal 0.9 - 4.3 10^3/mcL AO Workflow SS Monocytes (Bld) [#/Vol] 0.6 103/mcL Normal 0.1 - 1.4 10^3/mcL AO Workflow SS Neutrophils (Bld) [#/Vol] 2.9 103/mcL Normal 2.3 - 8.1 10^3/mcL AO Workflow SS Platelets (Bld) [#/Vol] 284 103/mcL Normal 150 - 450 10^3/mcL AO Workflow SS Protein [Mass/Vol] 6.8 G/dL Normal 6.4 - 8.2 G/dL AO ADM SS RBC (Bld) [#/Vol] 4.06 106/mcL Low 4.10 - 5.3 0 10^6/mcL AO Workflow SS Urea nitrogen/Creatinine [Mass ratio] 24 ratio Normal 7 - 27 ratio AO ADM SS WBC (Bld) [#/Vol] 5.8 103/mcL Normal 4.5 - 10.8 10^3/mcL AO Workflow SS LIPIDOrdered By: Brittney rene on 02-23-2025 Cholesterol [Mass/Vol] 172 mg/dL Normal 0-200 AO ADM SS Comment on above: Interpretive Data: C holesterol Reference Interval: Less than 200 Desirable 200-239 Borderline high risk 240 and above High risk Result Comment: Chol esterol Reference Interval: Less than 200 Desirable 200-239 Borderline high risk 240 and above High risk Performed By: #### L IPID, CMP, GFR #### [facility] [address] [address] Cholesterol in HDL [Mass/Vol] 57 mg/dL Normal 40-60 AO ADM SS Comment on above: Performed By: #### L IPID, CMP, GFR #### [facility] [address] [address] Cholesterol in LDL [Mass/Vol] 95 mg/dL Normal 0-130 AO ADM SS Comment on above: Performed By: #### L IPID, CMP, GFR #### [facility] [place] [address] [place], [place] [address] Triglyceride [Mass/Vol] 100 mg/dL Normal 0-150 AO ADM SS Comment on above: Interpretive Data: T riglyceride Reference Interval: Less than 150 Normal 150-199 Borderline high risk 200-499 High risk 500 or higher Very high risk Result Comment: Trig lyceride Reference Interval: Less than 150 Normal 150-199 Borderline high risk 200-499 High risk 500 or higher Very high risk Performed By: #### L IPID, CMP, GFR #### [address] [address] MGOrdered By: SYSTEM SYSTEM on 02-23-2025 Magnesium [Mass/Vol] 2.2 mg/dL Normal 1.8-2.4 AO A DM SS Comment on above: Performed By: #### M G, LIPID, CMP, FT4, VIDH, CBC, GFR, TSHR, ANEU, ADIFF #### [address] [address] #### B12 #### [facility] [address] [place] [address] TSHROrdered By: SYSTEM SYSTE M on 02-23-2025 TSH Qn 6.57 m[IU]/L High 0.36-3.74 AO ADM SS Comment on above: Performed By: #### M G, LIPID, CMP, FT4, VIDH, CBC, GFR, TSHR, ANEU, ADIFF #### [address] [address] #### B12 #### [facility] [address] [place] [address] VIDHon 02-23-2025 Vit. D 25-Hydroxy 33.6 ng/mL Normal [facility] Comment on above: Result Comment: Inte rpretive Values Based on Total 25(OH) Vitamin D: Deficient <20 ng/mL Insufficient 20 - <30 ng/mL Sufficient 30-100 ng/mL Performed By: #### L IPID, CMP, GFR #### [address] [address] [place] MAMMOGRAM SCREENING BILAT ERAL W/TOMOon 08-11-2024 MA MAMMOGRAM SCREENING BILATERAL W/GUNNER ORIGINAL FROM: [address] [address] PROCEDURE FOR: CYNDIE ROYAL [address] [place] [id number] Home: PID#: [id number] Exam#: [id number] : 1955 Age: 68 TO: RADHA VELASQUEZ DO [address] [place] [address] Fax: NO FAX EXAMINATION: SCREENING DIGITAL BILATERAL MAMMOGRAM WITH TOMOSYNTHESIS, 08/11/2024 11:16 am TECHNIQUE: Screening mammography of the bilateral breasts was performed with tomosynthesis. 2D standard and 3D tomosynthesis combination imaging performed through both breasts in the MLO and CC projection. Computer aided detection was utilized in the interpretation of this exam. COMPARISON: March 06, 2023, June 06, 2021, March 05, 2020 HISTORY: Breast cancer screening. FINDINGS: BREAST DENSITY: The breasts are heterogeneously dense, which may obscure small masses. There are bilateral benign-type calcifications. There is no significant mass, architectural distortion or microcalcification. Fibroglandular pattern is stable. IMPRESSION: No mammographic evidence of malignancy. Continued screening with annual mammograms is recommended. Deann Piperzick risk calculations, generated with the history provided, report this patient's 10 year risk and lifetime risk for developing breast cancer at 5.6% and 9.5%, respectively. Based on this assessment tool, if the patient's calculated lifetime risk is below 20%, then the patient is considered at average risk for developing breast cancer. If the patient's calculated lifetime risk is at or above 20%, then the patient is considered high risk for developing breast cancer and may be a candidate for supplemental breast MRI screening in addition to annual mammographic screening per the [place] [employer]. BIRADS: MAMMOGRAM BI-RADS: 2: Benign finding RECALL: 1 year screening RECALL TYPE: mammo LETTER SENT: Normal BI-RADS 1 and 2 Interpreted by: Danielle Koch Preliminary Report By: Danielle Koch Electronically signed By Danielle Koch Dictated Date: 08/11/2024 3:22:38 PM Prelim Date: 08/11/2024 3:27:05 PM Sign Date: 08/11/2024 3:27:05 PM Ordering Provider: RADHA VELASQUEZ Financial Administrative Assistant: CYNDY THOMAS RT(Eladio)(M)(CT) letter sent: Normal BI-RADS 1 and 2 Mammogram BI-RADS: 2 Benign Normal [facility] Coronary Angiography CTon Coronary Angiography CT [facility] Imaging Services [address] [place] [address] 04/18/[address] MR#: [id number] Acct: [id number] Name: CYNDIE ROYAL Rep #: [id number] : 1955 68 From: Zia Stanley MD PCP: Dr. Radha Velasquez, DO Status:REG CLI Y Location: CT Calcium Scoring Date of Study:: 04/04/24 Indications Indications: Vascular disease Coronary Calcium Scoring: High-resolution Computed Tomographic imaging of the chest was performed on [04/04/2024], with particular attention paid to the coronary arteries. Images from the examination were analyzed for the presence and extent of coronary artery calcification , using coronary calcium quantification software. The patient tolerated the procedure well and there were no complications. The results of the coronary calcification analysis are provided below. Findings Coronary Artery Left Main (LM): 0 Left Anterior Descending (LAD): 173 Left Circumflex (LCX): 0 Right Coronary Artery (RCA): 0 Total Agatston Score: 173 Percentile Rankinth and 90th percentile Calcium Scoring Interpretation: Different methods to categorize the overall amount of coronary plaque. Overall amount CAC SIS Visual of coronary plaque P1 Mild -100 <2 1-2 vessels with mild amount of plaque P2 Moderate 101-300 3-4 1-2 vessels with moderate amount, 3 vessels with mild amount of plaque P3 Severe 301-999 5-7 3 vessels with moderate amount, 1 vessel with severe amount of plaque P4 Extensive >1000 >8 2-3 vessels with severe amount of plaque Calcium Score: Moderate: 1-2 vessels w/moderate amt, 3 vessels w/mild amt of plaque Conclusion: Mild atherosclerotic disease involving the left anterior descending artery with calcification. 04/18/24828 Date Zia Stanley MD Cosigner Signature (if applicable): Date CC: LEROY Meeks; Dr. Zia Stanley MD; Dr. Radha Velasquez DO Signed Normal [facility] Limited Chest CT Cardiac Onl yon 04-04-[address] Cardiac Only [facility] Imaging Services [address] [place], [place] [address] Limited Chest CT Cardiac Only MR#: [id number] Acct: [id number] Name: YCNDIE ROYAL Rep #: [id number] : 1955 F 68 From: Ahmet Martínez MD PCP: Dr. Radha Velasquez DO Status: REG CLI Study: Limited Chest CT Cardiac Only Date of Exam: Exam# [id number] Ordering Dr: Carine Saleem [id number] STUDY: CARDIAC CALCIUM SCORING - CT CHEST REASON FOR EXAM: Female, 68 years old. VASCULAR DISEASE RADIATION DOSAGE (If Supplied By Facility): CTDIvol = ( 12.19 ) mGy, DLP = ( 219.42 ) mGycm TECHNIQUE: Axial non-enhanced images were acquired through the heart for the sole purpose of measuring coronary artery calcium. Individualized dose optimization techniques were used for this CT. COMPARISON: None. FINDINGS: Visualized surrounding anatomy: No acute disease. Left Main Coronary Artery: 0 Left Anterior Descending Artery: 173 Left Circumflex Artery: 0 Right Coronary Artery: 0 Other: Mild calcific plaquing of the thoracic aorta without evidence for aneurysm Total Calcium Score: 173 CT/Limited Chest CT Cardiac Only IMPRESSION: A Calcium Score of 173 places the patient in the approximate 75-90 percentile, based on the AGUIRRE data calculator. Please go to: [email or web address]-nhlbi.org/Tre [email or web address]/input.[email or web address] , for a description of the calculator. Electronically Signed: Ahmet Martínez MD at 16:23 EST Reading Location ID and State: [address] [place] [address] Tel , Service support , CC: LEROY Meeks; Dr. Radha Velasquez DO Drill Press Tender: Signed [facility] .GFRon 03-19-2024 GFR 97 ml/min/1.73sqm [facility] Comment on above: Result Comment: GFR Population mean for , Non- Americans Ages 20-29 = 116 mL/min/1.73 sq.m. Ages 30-39 = 107 mL/min/1.73 sq.m. Ages 40-49 = 99 mL/min/1.73 sq.m. Ages 50-59 = 93 mL/min/1.73 sq.m. Ages 60-69 = 85 mL/min/1.73 sq.m. Ages 70+ = 75 mL/min/1.73 sq.m. Chronic Kidney Disease: Less than 60 mL/min/1.73 square meters End Stage Renal Disease: Less than 15 mL/min/1.73 square meters Performed By: #### L IPID, CMP, GFR #### [address] [address] GFR Non- 80 ml/min/1.73sqm [facility] Comment on above: Result Comment: GFR Population mean for , Non- Americans Ages 20-29 = 116 mL/min/1.73 sq.m. Ages 30-39 = 107 mL/min/1.73 sq.m. Ages 40-49 = 99 mL/min/1.73 sq.m. Ages 50-59 = 93 mL/min/1.73 sq.m. Ages 60-69 = 85 mL/min/1.73 sq.m. Ages 70+ = 75 mL/min/1.73 sq.m. Chronic Kidney Disease: Less than 60 mL/min/1.73 square meters End Stage Renal Disease: Less than 15 mL/min/1.73 square meters Performed By: #### L IPID, CMP, GFR #### [address] [address] CMPon 03-19-2024 Albumin Level 3.7 G/dL Normal 3.4-4.8 [facility] Comment on above: Performed By: #### L IPID, CMP, GFR #### [address] [address] Albumin/Globulin [Mass ratio] 1.2 {ratio} Normal 1.1-2.5 [facility] Comment on above: Performed By: #### L IPID, CMP, GFR #### [address] [address] ALP [Catalytic activity/Vol] 97 U/L Normal 40-135 [facility] Comment on above: Performed By: #### L IPID, CMP, GFR #### [address] [address] ALT [Catalytic activity/Vol] 37 U/L Normal 14-59 [facility] Comment on above: Performed By: #### L IPID, CMP, GFR #### [address] [address] AST [Catalytic activity/Vol] 29 U/L Normal 10-40 [facility] Comment on above: Performed By: #### L IPID, CMP, GFR #### [address] [address] Bili Total 0.6 mg/dL Normal 0.2-1.0 [facility] Comment on above: Result Comment: Use of this assay is not recommended for patients undergoing treatment with eltrombopag due to the potential for falsely elevated results. Performed By: #### L IPID, CMP, GFR #### [address] [address] BUN/Creatinine Ratio 25 ratio Normal 7-27 [facility] Comment on above: Performed By: #### L IPID, CMP, GFR #### [address] [address] Calcium [Mass/Vol] 9.0 mg/dL Normal 8.4-10.2 [facility] Comment on above: Performed By: #### L IPID, CMP, GFR #### [address] [address] Chloride [Moles/Vol] 104 mmol/L Normal 98-107 [facility] Comment on above: Performed By: #### L IPID, CMP, GFR #### [address] [address] CO2 [Moles/Vol] 32 mmol/L High 23-31 [facility] Comment on above: Performed By: #### L IPID, CMP, GFR #### [address] [address] Creatinine [Mass/Vol] 0.72 mg/dL Normal 0.55-1.02 [facility] Comment on above: Result Comment: Test ing performed on Siemens Dimension EXL analyzer using a modified kinetic Carolyn technique. Performed By: #### L IPID, CMP, GFR #### [address] [address] Electrolyte Balance 6.0 mEq/L Normal 4.0-15.0 [facility] Comment on above: Performed By: #### L IPID, CMP, GFR #### [address] [address] Globulin 3.0 G/dL Normal [facility] Comment on above: Performed By: #### L IPID, CMP, GFR #### [address] [address] Glucose [Mass/Vol] 86 mg/dL Normal 80-115 [facility] Comment on above: Performed By: #### L IPID, CMP, GFR #### [address] [address] Potassium [Moles/Vol] 5.1 mmol/L Normal 3.5-5.1 [facility] Comment on above: Performed By: #### L IPID, CMP, GFR #### [facility] [address] [place], [place] [address] Sodium [Moles/Vol] 142 mmol/L Normal 136-145 [facility] Comment on above: Performed By: #### L IPID, CMP, GFR #### [address] [place], [place] [address] Total Protein 6.7 G/dL Normal 6.4-8.2 [facility] Comment on above: Performed By: #### L IPID, CMP, GFR #### [address] [place], [place] [address] Urea nitrogen [Mass/Vol] 18 mg/dL Normal 7-18 [facility] Comment on above: Performed By: #### L IPID, CMP, GFR #### [address] [place], [place] [address] LABORATORYOrdered By: SYSTEM SYSTEM on 03-19-2024 Albumin BCP dye [Mass/Vol] 3.7 G/dL Normal 3.4 - 4.8 G/dL AO ADM SS Albumin/Globulin [Mass ratio] 1.2 {ratio} Normal 1.1 - 2.5 ratio AO ADM SS ALP [Catalytic activity/Vol] 97 U/L Normal 40 - 135 U/L AO ADM SS ALT With P-5'-P [Catalytic activity/Vol] 37 U/L Normal 14 - 59 U/L AO ADM SS AST With P-5'-P [Catalytic activity/Vol] 29 U/L Normal 10 - 40 U/L AO ADM SS Bilirubin [Mass/Vol] 0.6 mg/dL Normal 0.2 - 1 .0 mg/dL AO ADM SS Comment on above: Interpretive Data: U se of this assay is not recommended for patients undergoing treatment with eltrombopag due to the potential for falsely elevated results. Calcium [Mass/Vol] 9.0 mg/dL Normal 8.4 - 10. 2 mg/dL AO ADM SS Chloride [Moles/Vol] 104 mmol/L Normal 98 - 10 7 mmol/L AO ADM SS CO2 [Moles/Vol] 32 mmol/L High 23 - 31 mmol/L AO ADM SS Creatinine [Mass/Vol] 0.72 mg/dL Normal 0.55 - 1.02 mg/dL AO ADM SS Comment on above: Interpretive Data: T esting performed on Siemens Dimension EXL analyzer using a modified kinetic Carolyn technique. Electrolyte Balance 6.0 mEq/L Normal 4.0 - 15 .0 mEq/L AO ADM SS GFR/1.73 sq M.predicted among blacks MDRD (S/P/Bld) [Vol rate/Area] 97 ml/min/1.73sqm Invalid Interpretation Code AO Chemistry S Comment on above: Interpretive Data: GFR Population mean for , Non- Americans Ages 20-29 = 116 mL/min/1.73 sq.m. Ages 30-39 = 107 mL/min/1.73 sq.m. Ages 40-49 = 99 mL/min/1.73 sq.m. Ages 50-59 = 93 mL/min/1.73 sq.m. Ages 60-69 = 85 mL/min/1.73 sq.m. Ages 70+ = 75 mL/min/1.73 sq.m. Chronic Kidney Disease: Less than 60 mL/min/1.73 square meters End Stage Renal Disease: Less than 15 mL/min/1.73 square meters GFR/1.73 sq M.predicted among non-blacks MDRD (S/P/Bld) [Vol rate/Area] 80 ml/min/1.73sqm Invalid Interpretation Code AO Chemistry S Comment on above: Interpretive Data: GFR Population mean for , Non- Americans Ages 20-29 = 116 mL/min/1.73 sq.m. Ages 30-39 = 107 mL/min/1.73 sq.m. Ages 40-49 = 99 mL/min/1.73 sq.m. Ages 50-59 = 93 mL/min/1.73 sq.m. Ages 60-69 = 85 mL/min/1.73 sq.m. Ages 70+ = 75 mL/min/1.73 sq.m. Chronic Kidney Disease: Less than 60 mL/min/1.73 square meters End Stage Renal Disease: Less than 15 mL/min/1.73 square meters Globulin 3.0 G/dL Invalid Interpretation Code AO ADM SS Glucose [Mass/Vol] 86 mg/dL Normal 80 - 115 mg/dL AO ADM SS Potassium [Moles/Vol] 5.1 mmol/L Normal 3.5 - 5.1 mmol/L AO ADM SS Protein [Mass/Vol] 6.7 G/dL Normal 6.4 - 8.2 G/dL AO ADM SS Sodium [Moles/Vol] 142 mmol/L Normal 136 - 145 mmol/L AO ADM SS Urea nitrogen [Mass/Vol] 18 mg/dL Normal 7 - 18 mg/dL AO ADM SS Urea nitrogen/Creatinine [Mass ratio] 25 ratio Normal 7 - 27 ratio AO ADM SS LABORATORYOrdered By: Stephanie Galloway on 03-19-2024 Cholesterol [Mass/Vol] 166 mg/dL Normal 0 - 200 mg/dL AO ADM SS Comment on above: Interpretive Data: C holesterol Reference Interval: Less than 200 Desirable 200-239 Borderline high risk 240 and above High risk Cholesterol in HDL [Mass/Vol] 55 mg/dL Normal 40 - 60 mg/dL AO ADM SS Cholesterol in LDL [Mass/Vol] 83 mg/dL Normal 0 - 130 mg/dL AO ADM SS Triglyceride [Mass/Vol] 139 mg/dL Normal 0 - 150 mg/dL AO ADM SS Comment on above: Interpretive Data: T riglyceride Reference Interval: Less than 150 Normal 150-199 Borderline high risk 200-499 High risk 500 or higher Very high risk LIPIDon 03-19-2024 Cholesterol [Mass/Vol] 166 mg/dL Normal 0-200 [facility] Comment on above: Result Comment: Chol esterol Reference Interval: Less than 200 Desirable 200-239 Borderline high risk 240 and above High risk Performed By: #### L IPID, CMP, GFR #### [address] [address] Cholesterol in HDL [Mass/Vol] 55 mg/dL Normal 40-60 [facility] Comment on above: Performed By: #### L IPID, CMP, GFR #### [address] [address] Cholesterol in LDL [Mass/Vol] 83 mg/dL Normal 0-130 [facility] Comment on above: Performed By: #### L IPID, CMP, GFR #### [address] [address] Triglyceride [Mass/Vol] 139 mg/dL Normal 0-150 [facility] Comment on above: Result Comment: Trig lyceride Reference Interval: Less than 150 Normal 150-199 Borderline high risk 200-499 High risk 500 or higher Very high risk Performed By: #### L IPID, CMP, GFR #### [address] [address] ANCAon 08-22-2023 C-ANCA 2.7 Normal 0.0-20.0 [facility] ([place]) Comment on above: Result Comment: NEW REFERENCE RANGES FOR ANCA BY EIA: NEGATIVE <= 20 UNITS WEAK POSITIVE 21 - 30 UNITS MOD. TO STRONG POSITIVE > 30 UNITS A positive result indicates the presence of NV-3 antibodies and suggests the possibility of certain autoimmune vasculitides such as Flakito?s granulomatosis. A negative result indicates no NV-3 antibody or levels below the negative cut-off of the assay. These results were obtained with the [employer] QUANTA Lite NV-3 IgG EMERSON. NV-3 values obtained with different manufacturers? assay methods may not be used interchangeably. The magnitude of the reported IgG level cannot be correlated to an endpoint titer. Results of this assay should be used in conjunction with clinical findings. Performed By: #### 0 03124, 689148, ENA1 #### [address] [place] [address] #### SPE, ANCA #### [address] [address] Cytoplasmic Neutro. Ab. See Below Normal [facility] ([place]) Comment on above: Performed By: #### 0 45492, 921234, ENA1 #### [address] [place] [address] #### SPE, ANCA #### [address] [address] P-ANCA 2.7 Normal 0.0-20.0 [facility] ([place]) Comment on above: Result Comment: REFE RENCE RANGES FOR ANCA BY EIA: NEGATIVE <= 20 UNITS WEAK POSITIVE 21 - 30 UNITS MOD. TO STRONG POSITIVE > 30 UNITS A positive result indicates the presence of MPO antibodies and suggests the possibility of certain autoimmune vasculitides such as microscopic polyarteritis, and crescentic glomerulonephritis. A negative result indicates no MPO antibody or levels below the negative cut-off of the assay. These results were obtained with the [employer] QUANTA Lite MPO IgG EMERSON. MPO values obtained with different manufacturers? assay methods may not be used interchangeably. The magnitude of the reported IgG level cannot be correlated to an endpoint titer. Results of this assay should be used in conjunction with clinical findings. Performed By: #### 0 92489, 061984, ENA1 #### [address] [address] #### SPE, ANCA #### [address] [address] B1WBon 08-21-2023 Vitamin B1 Whl Bld 109.0 nmol/L Normal 66.5-200.0 [facility] ([place]) Comment on above: Result Comment: This test was developed and its performance characteristics determined by [facility]. It has not been cleared or approved by the Food and Drug Administration. Performed At: [address] [id number] Tian Montana MD Ph:[phone] Performed By: #### 0 36544, 991337, ENA1 #### [place] [address] #### SPE, ANCA #### [place] [address] SPEon 08-21-2023 SPE Interpretation Normal serum protein electrophoresis pattern. No abnormality detected. Normal [facility]) Comment on above: Result Comment: Elec tronically Signed by: RJ JACOBO MD 08/21/2023 14:37 EDT Performed By: #### 0 83035, 734566, ENA1 #### [address] [address] #### SPE, ANCA #### [address] [address] Albumin 3.8 G/dL Normal 3.3-5.0 [facility] ([place]) Comment on above: Performed By: #### 0 76833, 437261, ENA1 #### [address] [address] #### SPE, ANCA #### [address] [address] Alpha 1 0.2 G/dL Normal 0.1-0.4 [facility] ([place]) Comment on above: Performed By: #### 0 28973, 153249, ENA1 #### [address] [address] #### SPE, ANCA #### [address] [place] [address] Alpha 2 0.9 G/dL Normal 0.6-1.2 [facility] ([place]) Comment on above: Performed By: #### 0 34879, 691349, ENA1 #### [place] [address] #### SPE, ANCA #### [address] [place] [address] Beta 1.2 G/dL Normal 0.6-1.3 [facility] ([place]) Comment on above: Performed By: #### 0 72763, 544294, ENA1 #### [address] [place] [address] #### SPE, ANCA #### [address] [place] [address] Gamma 0.7 G/dL Normal 0.7-1.6 [facility] ([place]) Comment on above: Performed By: #### 0 19246, 459532, ENA1 #### [address] [place] [address] #### SPE, ANCA #### [place] [address] DYMW1at 08-19-2023 Vitamin B6 Lvl 10.8 UG/L Normal 3.4-65.2 [facility] ([place]) Comment on above: Result Comment: This test was developed and its performance characteristics determined by [facility]. It has not been cleared or approved by the Food and Drug Administration. Deficiency: <3.4 Marginal: 3.4 - 5.1 Adequate: >5.1 Performed At: [address] [id number] Tian Montana MD Ph:[phone] Performed By: #### 0 03494, 744972, ENA1 #### [address] [address] #### SPE, ANCA #### [address] [address] ENA1on 08-17-2023 Centromere <0.2 Normal <1.0 [facility] ([place]) Comment on above: Result Comment: Anti -centromere antibody is used as in aid in diagnosis of systemic sclerosis. Clinical correlation is required. Test Methodology: Multiplex flow immunoassay. Performed By: [place] [address] Shipyard Laborer: Louis Penn III, M.D. CLIA#: [id number] Performed By: #### 0 76935, 846393, ENA1 #### [place] [address] #### SPE, ANCA #### [place] [address] Centromere Ab Qualitative Negative Normal Negative [facility] ([place]) Comment on above: Result Comment: Perf ormed By: [place] [address] Shipyard Laborer: Louis Penn III, M.D. CLIA#: [id number] Performed By: #### 0 85693, 480828, ENA1 #### [address] [address] [address] #### SPE, ANCA #### [place] [id number] Chromatin Ab Qualitative Negative Normal Negative [facility] ([place]) Comment on above: Result Comment: Perf ormed By: [place] [address] Shipyard Laborer: Louis Penn III, M.D. CLIA#: [id number] Performed By: #### 0 42724, 373166, ENA1 #### [place] [address] #### SPE, ANCA #### [place] [address] Chromatin Antibody <0.2 Normal <1.0 [facility] ([place]) Comment on above: Result Comment: Test Methodology: Multiplex flow immunoassay. Anti-chromatin antibody is used as an aid in diagnosis of systemic lupus erythematosus. Clinical correlation is required. Test Methodology: Multiplex flow immunoassay. Performed By: [facility] [place] [address] Shipyard Laborer: Louis Penn III, M.D. CLIA#: [id number] Performed By: #### 0 41678, 491223, ENA1 #### [address] [address] #### SPE, ANCA #### [address] [address] ADRIAN 1 Antibody <0.2 Normal <1.0 [facility] ([place]) Comment on above: Result Comment: Perf ormed By: [place] [address] Shipyard Laborer: Louis Penn III, M.D. CLIA#: [id number] Performed By: #### 0 47342, 458164, ENA1 #### [address] [address] #### SPE, ANCA #### [place] [id number] ADRIAN 1 Antibody Qual Negative Normal Negative [facility] ([place]) Comment on above: Result Comment: Anti -ADRIAN-1 antibody is used as an aid in diagnosis of polymyositis and dermatomyositis especially with pulmonary involvement. A negative result cannot rule out polymyositis or dermatomyositis. Clinical correlation is required. Test Methodology: Multiplex flow immunoassay. Performed By: [facility] [place] [address] Shipyard Laborer: Louis Penn III, M.D. CLIA#: [id number] Performed By: #### 0 64610, 318653, ENA1 #### [address] [address] #### SPE, ANCA #### [address] [address] Ribosomal GROUND INSTRUCTOR BASIC <0.2 Normal <1.0 [facility] ([place]) Comment on above: Result Comment: Perf ormed By: [place] [address] Shipyard Laborer: Louis Penn III, M.D. CLIA#: [id number] Performed By: #### 0 80233, 104635, ENA1 #### [address] [place], [place] [address] #### SPE, ANCA #### [address] [address] Ribosomal GROUND INSTRUCTOR BASIC Qualitative Negative Normal Negative [facility] ([place]) Comment on above: Result Comment: Anti -Ribosomal RNA (Ribosomal P) antibody is used as an aid in diagnosis of systemic autoimmune diseases especially systemic lupus erythematosus and mixed connective tissue disease. Cross-reactivity with Anti-reyes antibody is not uncommon. Clinical correlation is required. Test Methodology: Multiplex flow immunoassay. Performed By: [place] [address] Shipyard Laborer: Louis Penn III, M.D. CLIA#: [id number] Performed By: #### 0 13072, 276054, ENA1 #### [address] [address] #### SPE, ANCA #### [address] [address] GROUND INSTRUCTOR BASIC Antibody <0.2 Normal <1.0 [facility] ([place]) Comment on above: Result Comment: Anti -GROUND INSTRUCTOR BASIC antibody is used as an aid in diagnosis of systemic autoimmune diseases especially systemic lupus erythematosus and mixed connective tissue disease. Cross-reactivity with Anti-reyes antibody is not uncommon. Clinical correlation is required. Test Methodology: Multiplex flow immunoassay. Performed By: [facility] [place] [address] Shipyard Laborer: Louis Penn III, M.D. CLIA#: [id number] Performed By: #### 0 12203, 147033, ENA1 #### [address] [place], [place] [address] #### SPE, ANCA #### [facility] [address] [place] [address] GROUND INSTRUCTOR BASIC Antibody Qualitative Negative Normal Negative [facility] ([place]) Comment on above: Result Comment: Perf ormed By: [place] [address] Shipyard Laborer: Louis Penn III, M.D. CLIA#: [id number] Performed By: #### 0 49813, 345804, ENA1 #### [address] [address] #### SPE, ANCA #### [address] [address] Scleroderma Ab, IgG Qualitative Negative Normal Negative [facility] ([place]) Comment on above: Result Comment: Perf ormed By: [place] [address] Shipyard Laborer: Louis Penn III, M.D. CLIA#: [id number] Performed By: #### 0 76257, 122863, ENA1 #### [address] [address] #### SPE, ANCA #### [address] [address] Scleroderma IgG Ab <0.2 Normal <1.0 [facility] ([place]) Comment on above: Result Comment: Scl- 70/Scleroderma antibody test is used as an aid in diagnosis of systemic sclerosis especially the diffuse cutaneous form. A negative result cannot rule out systemic sclerosis. The final interpretation should consider clinical picture and other test results such as anti-centromere antibody. Test Methodology: Multiplex flow immunoassay. Performed By: [facility] [address] [place] [address] Shipyard Laborer: Louis Penn III, M.D. CLIA#: [id number] Performed By: #### 0 80480, 479237, ENA1 #### [address] [address] #### SPE, ANCA #### [address] [address] Sm Antibody <0.2 Normal <1.0 [facility] ([place]) Comment on above: Result Comment: Perf ormed By: [facility] [address] [place] [address] Shipyard Laborer: Louis Penn III, M.D. CLIA#: [id number] Performed By: #### 0 45944, 725142, ENA1 #### [address] [address] #### SPE, ANCA #### [address] [address] Sm Antibody Qual Negative Normal Negative [facility] ([place]) Comment on above: Result Comment: Anti -Sm (Reyes) antibody is used as an aid in diagnosis of systemic lupus erythematosus and its presence is associated with renal disease. A negative result cannot rule out systemic lupus erythematosus. Clinical correlation is required. Test Methodology: Multiplex flow immunoassay. Performed By: [facility] [address] [place] [address] Shipyard Laborer: Louis Penn III, M.D. CLIA#: [id number] Performed By: #### 0 45245, 351353, ENA1 #### [place] [address] #### SPE, ANCA #### [address] [address] SS-A Antibody <0.2 Normal <1.0 [facility] ([place]) Comment on above: Result Comment: Test Methodology: Multiplex flow immunoassay. Anti-SSA (anti-Ro) antibody is used as an aid in diagnosis of a variety of systemic autoimmune diseases, Sjogren's syndrome among others. Clinical correlation is required. Test Methodology: Multiplex flow immunoassay. Performed By: [facility] [address] [place] [address] Shipyard Laborer: Louis Penn III, M.D. CLIA#: [id number] Performed By: #### 0 71848, 355807, ENA1 #### [address] [place], [place] [address] #### SPE, ANCA #### [address] [address] SS-B Antibody <0.2 Normal <1.0 [facility] ([place]) Comment on above: Result Comment: Anti -SSB (anti-La) antibody is used as an aid in diagnosis of a variety of systemic autoimmune diseases, especially for Sjogren's syndrome and systemic lupus erythematosus. Clinical correlation is required. Test Methodology: Multiplex flow immunoassay. Performed By: [place] [address] Shipyard Laborer: Louis Penn III, M.D. CLIA#: [id number] Performed By: #### 0 18482, 353946, ENA1 #### [place] [id number] #### SPE, ANCA #### [address] [address] SSA Antibody Qualitative Negative Normal Negative [facility] ([place]) Comment on above: Result Comment: Perf ormed By: [place] [address] Shipyard Laborer: Louis Penn III, M.D. CLIA#: [id number] Performed By: #### 0 20735, 930931, ENA1 #### [place] [address] #### SPE, ANCA #### [place] [id number] SSB Antibody Qualitative Negative Normal Negative [facility] ([place]) Comment on above: Result Comment: Perf ormed By: [place] [address] Shipyard Laborer: Louis Penn III, M.D. CLIA#: [id number] Performed By: #### 0 08661, 819896, ENA1 #### [place] [address] #### SPE, ANCA #### [address] [address] LABORATORYOrdered By: Tha Thorpe on 08-16-2023 Protein [Mass/Vol] 6.7 G/dL Normal 5.7 - 8.2 G/dL ADM SS Comment on above: Interpretive Data: * *Note - New Reference Range in effect 19 SPEon 08-16-2023 Total Protein 6.7 G/dL Normal 5.7-8.2 [facility] ([place]) Comment on above: Result Comment: No te - New Reference Range in effect 19 Performed By: #### 0 44890, 405788, ENA1 #### [address] [address] #### SPE, ADDISON #### [place] [id number] [place] [address] [address] ANGIOGRAPHY HEAD W/ CONTR Loretta 03-06-2023 CT ANGIOGRAPHY HEAD W/ CONTRAST ORIGINAL HISTORY: Cerebral aneurysm COMPARISON: 25 July 2022 TECHNIQUE: CT angiography of the head following uncomplicated administration of intravenous contrast, with 3D post-acquisition processing and with results displayed in source images, sagittal reconstructions through the carotid siphons, maximum intensity projections and volume rendered images. This exam was performed according to our departmental dose optimization program, and includes the following measures where applicable: automated exposure control, adjustment of the mAs and/or kVp according to patient size and/or exam, and an iterative reconstruction algorithm. FINDINGS: There is no patent right middle cerebral artery; there is extensive collateral circulation mainly involving the lenticulostriate arteries. The more distal branches of the right middle cerebral artery are less robust than their left counterparts. No aneurysm is seen. The left internal carotid artery in its major branches are patent without occlusion, significant stenosis or aneurysm. The major vessels of the posterior circulation are unremarkable in appearance. There is a circulatory pattern on the right. 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 No aneurysm is seen. Interpreted by: Med De La Cruz MD Preliminary Report By: Med De La Cruz MD Electronically signed By Med De La Cruz MD Dictated Date: 03/06/2023 11:23:57 AM Prelim Date: 03/06/2023 11:31:21 AM Sign Date: 03/06/2023 11:31:21 AM Ordering Provider: MEAGHAN Conklin [facility] ([place]) MA MAMMOGRAM SCREENING BILAT ERAL W/TOMOon 03-06-2023 MA MAMMOGRAM SCREENING BILATERAL W/GUNNER ORIGINAL FROM: [address] [address] PROCEDURE FOR: CYNDIE ROYAL [address] [place] [id number] Home: PID#: [id number] Exam#: [id number] : 1955 Age: 67 TO: RADHA VELASQUEZ DO [address] [place] [address] [place] [address] Fax: NO FAX EXAMINATION: SCREENING DIGITAL BILATERAL MAMMOGRAM WITH TOMOSYNTHESIS, 03/06/2023 11:35 am TECHNIQUE: Screening mammography of the bilateral breasts was performed with tomosynthesis. 2D standard and 3D tomosynthesis combination imaging performed through both breasts in the MLO and CC projection. Computer aided detection was utilized in the interpretation of this exam. COMPARISON: 06/06/2021, 03/05/2020 HISTORY: Breast cancer screening. FINDINGS: BREAST DENSITY: Heterogeneously dense There are benign appearing calcifications in both breasts. There are no significant masses or calcifications. IMPRESSION: No mammographic evidence of malignancy. Continued screening with annual mammograms is recommended. Tyrkatey zick risk calculations, generated with the history provided, report this patient's 10 year risk and lifetime risk for developing breast cancer at 4.8% and 8.6%, respectively. Based on this assessment tool, if the patient's calculated lifetime risk is below 20%, then the patient is considered at average risk for developing breast cancer. If the patient's calculated lifetime risk is at or above 20%, then the patient is considered high risk for developing breast cancer and may be a candidate for supplemental breast MRI screening in addition to annual mammographic screening per the [place] [employer]. BIRADS: MAMMOGRAM BI-RADS: 2: Benign finding RECALL: 1 year screening RECALL TYPE: mammo LETTER SENT: Normal BI-RADS 1 and 2 Interpreted by: Fly Conrad MD Preliminary Report By: Fly Conrad MD Electronically signed By Fly Conrad MD Dictated Date: 03/06/2023 3:59:58 PM Prelim Date: 03/06/2023 4:06:16 PM Sign Date: 03/06/2023 4:06:16 PM Ordering Provider: RADHA VELASQUEZ Financial Administrative Assistant: CHUN ZACARIAS RT(R)(M)(CT) UNDERWRITING ANALYST letter sent: Normal BI-RADS 1 and 2 Mammogram BI-RADS: 2 Benign Normal [facility] ([place]) .GFRon 02-07-2023 GFR 103 ml/min/1.73sqm Normal [facility] ([place]) Comment on above: Result Comment: GFR Population mean for , Non- Americans Ages 20-29 = 116 mL/min/1.73 sq.m. Ages 30-39 = 107 mL/min/1.73 sq.m. Ages 40-49 = 99 mL/min/1.73 sq.m. Ages 50-59 = 93 mL/min/1.73 sq.m. Ages 60-69 = 85 mL/min/1.73 sq.m. Ages 70+ = 75 mL/min/1.73 sq.m. Chronic Kidney Disease: Less than 60 mL/min/1.73 square meters End Stage Renal Disease: Less than 15 mL/min/1.73 square meters Performed By: #### C MP, LIPID, GFR #### [address] [address] GFR Non- 85 ml/min/1.73sqm Normal [facility] ([place]) Comment on above: Result Comment: GFR Population mean for , Non- Americans Ages 20-29 = 116 mL/min/1.73 sq.m. Ages 30-39 = 107 mL/min/1.73 sq.m. Ages 40-49 = 99 mL/min/1.73 sq.m. Ages 50-59 = 93 mL/min/1.73 sq.m. Ages 60-69 = 85 mL/min/1.73 sq.m. Ages 70+ = 75 mL/min/1.73 sq.m. Chronic Kidney Disease: Less than 60 mL/min/1.73 square meters End Stage Renal Disease: Less than 15 mL/min/1.73 square meters Performed By: #### C MP, LIPID, GFR #### [address] [address] CMPon 02-07-2023 Albumin Level 3.7 G/dL Normal 3.4-4.8 [facility] ([place]) Comment on above: Performed By: #### C MP, LIPID, GFR #### [address] [address] Albumin/Globulin [Mass ratio] 1.2 {ratio} Normal 1.1-2.5 [facility] ([place]) Comment on above: Performed By: #### C MP, LIPID, GFR #### [address] [address] ALP [Catalytic activity/Vol] 78 U/L Normal 40-135 [facility] ([place]) Comment on above: Performed By: #### C MP, LIPID, GFR #### [address] [address] ALT [Catalytic activity/Vol] 28 U/L Normal 14-59 [facility] ([place]) Comment on above: Performed By: #### C MP, LIPID, GFR #### [address] [address] AST [Catalytic activity/Vol] 21 U/L Normal 10-40 [facility] ([place]) Comment on above: Performed By: #### C MP, LIPID, GFR #### [address] [address] Bili Total 0.5 mg/dL Normal 0.2-1.0 [facility] ([place]) Comment on above: Result Comment: Use of this assay is not recommended for patients undergoing treatment with eltrombopag due to the potential for falsely elevated results. Performed By: #### C MP, LIPID, GFR #### [address] [address] BUN/Creatinine Ratio 23 ratio Normal 7-27 [facility] ([place]) Comment on above: Performed By: #### C MP, LIPID, GFR #### [address] [address] Calcium [Mass/Vol] 8.9 mg/dL Normal 8.4-10.2 [facility] ([place]) Comment on above: Performed By: #### C MP, LIPID, GFR #### [address] [address] Chloride [Moles/Vol] 105 mmol/L Normal 98-107 [facility] ([place]) Comment on above: Performed By: #### C MP, LIPID, GFR #### [address] [address] CO2 [Moles/Vol] 30 mmol/L Normal 23-31 [facility] ([place]) Comment on above: Performed By: #### C MP, LIPID, GFR #### [address] [address] Creatinine [Mass/Vol] 0.69 mg/dL Normal 0.55-1.02 [facility] ([place]) Comment on above: Performed By: #### C MP, LIPID, GFR #### [address] [address] Electrolyte Balance 7.0 mEq/L Normal 4.0-15.0 [facility] ([place]) Comment on above: Performed By: #### C MP, LIPID, GFR #### [address] [address] Globulin 3.0 G/dL Normal [facility] ([place]) Comment on above: Performed By: #### C MP, LIPID, GFR #### [address] [address] Glucose [Mass/Vol] 86 mg/dL Normal 80-115 [facility] ([place]) Comment on above: Performed By: #### C MP, LIPID, GFR #### [address] [address] Potassium [Moles/Vol] 4.9 mmol/L Normal 3.5-5.1 [facility] ([place]) Comment on above: Performed By: #### C MP, LIPID, GFR #### [address] [address] Sodium [Moles/Vol] 142 mmol/L Normal 136-145 [facility] ([place]) Comment on above: Performed By: #### C MP, LIPID, GFR #### [address] [address] Total Protein 6.7 G/dL Normal 6.4-8.2 [facility] ([place]) Comment on above: Performed By: #### C MP, LIPID, GFR #### [id number] [place], [place] [address] Urea nitrogen [Mass/Vol] 16 mg/dL Normal 7-18 [facility] ([place]) Comment on above: Performed By: #### C MP, LIPID, GFR #### [id number] [place], [place] [address] LABORATORYOrdered By: SYSTEM SYSTEM on 02-07-2023 Albumin BCP dye [Mass/Vol] 3.7 G/dL Invalid Interpretation Code 3.4 - 4.8 G/dL AO ADM SS Albumin/Globulin [Mass ratio] 1.2 {ratio} Invalid Interpretation Code 1.1 - 2.5 ratio AO ADM SS ALP [Catalytic activity/Vol] 78 U/L Invalid Interpretation Code 40 - 135 U/L AO ADM SS ALT With P-5'-P [Catalytic activity/Vol] 28 U/L Invalid Interpretation Code 14 - 59 U/L AO ADM SS AST With P-5'-P [Catalytic activity/Vol] 21 U/L Invalid Interpretation Code 10 - 40 U/L AO ADM SS Bilirubin [Mass/Vol] 0.5 mg/dL Invalid Interpretation Code 0.2 - 1.0 mg/dL AO ADM SS Comment on above: Interpretive Data: U se of this assay is not recommended for patients undergoing treatment with eltrombopag due to the potential for falsely elevated results. Calcium [Mass/Vol] 8.9 mg/dL Invalid Interpretation Code 8.4 - 10.2 mg/dL AO ADM SS Chloride [Moles/Vol] 105 mmol/L Invalid Interpretation Code 98 - 107 mmol/L AO ADM SS CO2 [Moles/Vol] 30 mmol/L Invalid Interpretation Code 23 - 31 mmol/L AO ADM SS Creatinine [Mass/Vol] 0.69 mg/dL Invalid Interpretation Code 0.55 - 1.02 mg/dL AO ADM SS Electrolyte Balance 7.0 mEq/L Invalid Interpretation Code 4.0 - 15.0 mEq/L AO ADM SS GFR/1.73 sq M.predicted among blacks MDRD (S/P/Bld) [Vol rate/Area] 103 ml/min/1.73sqm Invalid Interpretation Code AO Chemistry S Comment on above: Interpretive Data: GFR Population mean for , Non- Americans Ages 20-29 = 116 mL/min/1.73 sq.m. Ages 30-39 = 107 mL/min/1.73 sq.m. Ages 40-49 = 99 mL/min/1.73 sq.m. Ages 50-59 = 93 mL/min/1.73 sq.m. Ages 60-69 = 85 mL/min/1.73 sq.m. Ages 70+ = 75 mL/min/1.73 sq.m. Chronic Kidney Disease: Less than 60 mL/min/1.73 square meters End Stage Renal Disease: Less than 15 mL/min/1.73 square meters GFR/1.73 sq M.predicted among non-blacks MDRD (S/P/Bld) [Vol rate/Area] 85 ml/min/1.73sqm Invalid Interpretation Code AO Chemistry S Comment on above: Interpretive Data: GFR Population mean for , Non- Americans Ages 20-29 = 116 mL/min/1.73 sq.m. Ages 30-39 = 107 mL/min/1.73 sq.m. Ages 40-49 = 99 mL/min/1.73 sq.m. Ages 50-59 = 93 mL/min/1.73 sq.m. Ages 60-69 = 85 mL/min/1.73 sq.m. Ages 70+ = 75 mL/min/1.73 sq.m. Chronic Kidney Disease: Less than 60 mL/min/1.73 square meters End Stage Renal Disease: Less than 15 mL/min/1.73 square meters Globulin 3.0 G/dL Invalid Interpretation Code AO ADM SS Glucose [Mass/Vol] 86 mg/dL Invalid Interpretation Code 80 - 115 mg/dL AO ADM SS Potassium [Moles/Vol] 4.9 mmol/L Invalid Interpretation Code 3.5 - 5.1 mmol/L AO ADM SS Protein [Mass/Vol] 6.7 G/dL Invalid Interpretation Code 6.4 - 8.2 G/dL AO ADM SS Sodium [Moles/Vol] 142 mmol/L Invalid Interpretation Code 136 - 145 mmol/L AO ADM SS Urea nitrogen [Mass/Vol] 16 mg/dL Invalid Interpretation Code 7 - 18 mg/dL AO ADM SS Urea nitrogen/Creatinine [Mass ratio] 23 ratio Invalid Interpretation Code 7 - 27 ratio AO ADM SS LABORATORYOrdered By: Marcia Edmond on 09-27-2023 Cholesterol [Mass/Vol] 241 mg/dL Invalid Interpretation Code 0 - 200 mg/dL AO ADM SS Comment on above: Interpretive Data: C holesterol Reference Interval: Less than 200 Desirable 200-239 Borderline high risk 240 and above High risk Cholesterol in HDL [Mass/Vol] 54 mg/dL Invalid Interpretation Code 40 - 60 mg/dL AO ADM SS Cholesterol in LDL [Mass/Vol] 160 mg/dL Invalid Interpretation Code 0 - 130 mg/dL AO ADM SS Triglyceride [Mass/Vol] 137 mg/dL Invalid Interpretation Code 0 - 150 mg/dL AO ADM SS Comment on above: Interpretive Data: T riglyceride Reference Interval: Less than 150 Normal 150-199 Borderline high risk 200-499 High risk 500 or higher Very high risk LIPIDon 02-07-2023 Cholesterol [Mass/Vol] 241 mg/dL High 0-200 [facility] ([place]) Comment on above: Result Comment: Chol esterol Reference Interval: Less than 200 Desirable 200-239 Borderline high risk 240 and above High risk Performed By: #### C MP, LIPID, GFR #### [address] [address] Cholesterol in HDL [Mass/Vol] 54 mg/dL Normal 40-60 [facility] ([place]) Comment on above: Performed By: #### C MP, LIPID, GFR #### [address] [address] Cholesterol in LDL [Mass/Vol] 160 mg/dL High 0-130 [facility] ([place]) Comment on above: Performed By: #### C MP, LIPID, GFR #### [address] [address] Triglyceride [Mass/Vol] 137 mg/dL Normal 0-150 [facility] ([place]) Comment on above: Result Comment: Trig lyceride Reference Interval: Less than 150 Normal 150-199 Borderline high risk 200-499 High risk 500 or higher Very high risk Performed By: #### C MP, LIPID, GFR #### [address] [address] Final Surgical Pathology Rep [facility] 01-10-2023 Final Surgical Pathology Report . Pathology Reports Accession: Collected Date/Time: Received Date/Time: Pathologist: [id number] 01/01/2023 10:32 EDT 01/02/2023 10:38 EDT MD RJ JACOBO Final Surgical Pathology Report DIAGNOSIS: LEFT VULVA, BIOPSY: - BENIGN SQUAMOUS LINED CYST WITH MILD CHRONIC INFLAMMATION CLINICAL INFORMATION: POSSIBLE LICHEN SCLEROSIS VS RAY, VULVAR RASH Procedure: PUNCH BIOPSY Preoperative diagnosis: LICHEN SCLEROSIS Postoperative diagnosis: SAME ABOVE SPECIMEN: A LEFT VULVA GROSS DESCRIPTION: A. Received in formalin, labeled with the patients name, Case # [id number], and left vulva are 2 greer fragments of skin measuring 0.3 and 0.5 cm. The larger fragment excision margin inked black. TS -1 Dictated by RADHA GORDON MICROSCOPIC DESCRIPTION: The microscopic examination is performed, except in the case of Gross Only. Electronically Signed by Pathology Report verified by [facility] RJ JACOBO MD Sign out Date: 01/10/2023 08:31 Performing Lab: [facility], [address] [place] [address] Pathology Dept Disclaimer If ancillary studies were utilized, the following Laboratory Developed Test (LDT) disclaimer will apply: Under CLIA requirements, [facility] is qualified to perform high complexity testing. For all ancillary stains, positive and negative controls stain appropriately. Performance characteristics of immunohistochemical and chromogenic in-situ hybridization tests have been determined by [facility]. These tests are used for clinical purposes, They should not be regarded as investigational or for research. Normal [facility] ([place]) No Panel Informationon 11-08 Proximal right middl e cerebral artery occlusion, with excellent collateral supply from a dense network of wispy collateral vessels arising near the distal right internal carotid artery and skull base as well as leptomeningeal collateralization from the right anterior and posterior cerebral arteries. Given robust collateralization as well as appearance of other vasculature, this is likely the result of chronic occlusion which may have been the result of atherosclerosis versus other vasculopathy. I was present for and/or performed the critical portions of the procedure and immediately available throughout the entire procedure. I personally reviewed the image(s)/study and interpretation. I agree with the findings as stated. Performed and dictated at [facility]. 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 COMPARISON: CTA head 07/17/2022 ACCESSION NUMBER(S): [id number]; [id number]; [id number]; [id number] ORDERING CLINICIAN: DAVID FRAZIER TECHNIQUE: Risks including groin site injury, groin hematoma, pseudoaneurysm, retroperitoneal hematoma, vessel dissection, stroke, paralysis, contrast induced nephropathy, and were explained to the patient. Following discussion of risks, benefits, and alternatives, patient agreed to proceed with cerebral angiogram and informed consent was obtained. The patient was monitored throughout for EKG, blood pressure, and pulse oximetry. Moderate sedation services (supervision of administration, induction, and maintenance) were provided by the physician performing the procedure with intravenous fentanyl and versed for 30 minutes. The physician was assisted by an independent trained observer in the continuous monitoring of patient level of consciousness and physiologic status. There were no apparent sedation complications. Total fluoroscopy time was 6.1 minutes. Approximately 70 ML Optiray 320 contrast was employed. Using Seldinger technique and a right common femoral approach a 5 Cambodian sheath was placed. Next a MCS catheter was used for selective injections of the following arteries: Right internal carotid artery, left vertebral artery, left internal carotid artery, right common femoral artery. The catheter and then the sheath were removed. Hemostasis was obtained with hand compression following placement of Mynx device. The patient was taken to a hospital bed for routine post procedure observation and care. There were no apparent complications. FINDINGS: RIGHT INTERNAL CAROTID ARTERY INJECTIONS: DSA runs were obtained over the head in PA, lateral, oblique, and 3D views. The distal cervical and intracranial right internal carotid artery opacify well and appear unremarkable. Filling of the right posterior cerebral artery from the right posterior communicating artery is seen on this injection. The right anterior cerebral artery opacifies well and appears unremarkable. The right middle cerebral artery is occluded proximally, with a dense network of wispy collateral vessels visualized arising near the distal right internal carotid artery and skull base as well as leptomeningeal collateralization from the right anterior and posterior cerebral arteries. Internal carotid artery bifurcates normally into widely patent and unremarkable right anterior cerebral and right middle cerebral arteries. Minimal flash filling of the left anterior cerebral artery with poor visualization of an anterior communicating artery is seen. No aneurysm or early draining vein is seen. LEFT VERTEBRAL ARTERY INJECTION: DSA runs of the head were obtained in PA and lateral views. The distal left vertebral artery is within normal limits. No discrete origin of the left posterior inferior cerebellar artery is visualized, consistent with an AICA-PICA normal variant. Opacification of the vertebrobasilar junction is seen without evidence of aneurysm, vascular malformation, or stenosis. The basilar artery is widely patent and unremarkable. Bilateral anterior inferior cerebellar, superior cerebellar, and posterior cerebral arteries fill within normal limits. Flash filling of the right posterior cerebral artery on this injection is likely due to competing flow from the anterior circulation, consistent with a normal variant. No aneurysm, early draining vein, or stenosis is seen. LEFT INTERNAL CAROTID ARTERY INJECTIONS: DSA runs were obtained over the head in PA and lateral views. The distal cervical and intracranial left internal carotid artery opacify well and appear unremarkable. Flash filling of the left posterior cerebral artery from the left posterior communicating artery is seen on this injection. The left internal carotid artery bifurcates normally into widely patent and unremarkable left anterior cerebral and left middle cerebral arteries. No aneurysm, early draining vein, or stenosis is seen. RIGHT COMMON FEMORAL ARTERY INJECTION: DSA run over the right hip was obtained in GALLAGHER view. The right common femoral artery, femoral bifurcation, and distal vasculature opacify well and appear unremarkable. There is no evidence of pseudoaneurysm, stenosis, dissection, or other type of vascular injury. 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 COMPARISON: CTA head 07/17/2022 ACCESSION NUMBER(S): [id number]; [id number]; [id number]; [id number]; [id number]; [id number] ORDERING CLINICIAN: DVAID FRAZIER TECHNIQUE: Risks including groin site injury, groin hematoma, pseudoaneurysm, retroperitoneal hematoma, vessel dissection, stroke, paralysis, contrast induced nephropathy, and were explained to the patient. Following discussion of risks, benefits, and alternatives, patient agreed to proceed with cerebral angiogram and informed consent was obtained. The patient was monitored throughout for EKG, blood pressure, and pulse oximetry. Moderate sedation services (supervision of administration, induction, and maintenance) were provided by the physician performing the procedure with intravenous fentanyl and versed for 30 minutes. The physician was assisted by an independent trained observer in the continuous monitoring of patient level of consciousness and physiologic status. There were no apparent sedation complications. Total fluoroscopy time was 6.1 minutes. Approximately 70 ML Optiray 320 contrast was employed. Using Seldinger technique and a right common femoral approach a 5 Cambodian sheath was placed. Next a MCS catheter was used for selective injections of the following arteries: Right internal carotid artery, left vertebral artery, left internal carotid artery, right common femoral artery. The catheter and then the sheath were removed. Hemostasis was obtained with hand compression following placement of Mynx device. The patient was taken to a hospital bed for routine post procedure observation and care. There were no apparent complications. FINDINGS: RIGHT INTERNAL CAROTID ARTERY INJECTIONS: DSA runs were obtained over the head in PA, lateral, oblique, and 3D views. The distal cervical and intracranial right internal carotid artery opacify well and appear unremarkable. Filling of the right posterior cerebral artery from the right posterior communicating artery is seen on this injection. The right anterior cerebral artery opacifies well and appears unremarkable. The right middle cerebral artery is occluded proximally, with a dense network of wispy collateral vessels visualized arising near the distal right internal carotid artery and skull base as well as leptomeningeal collateralization from the right anterior and posterior cerebral arteries. Internal carotid artery bifurcates normally into widely patent and unremarkable right anterior cerebral and right middle cerebral arteries. Minimal flash filling of the left anterior cerebral artery with poor visualization of an anterior communicating artery is seen. No aneurysm or early draining vein is seen. LEFT VERTEBRAL ARTERY INJECTION: DSA runs of the head were obtained in PA and lateral views. The distal left vertebral artery is within normal limits. No discrete origin of the left posterior inferior cerebellar artery is visualized, consistent with an AICA-PICA normal variant. Opacification of the vertebrobasilar junction is seen without evidence of aneurysm, vascular malformation, or stenosis. The basilar artery is widely patent and unremarkable. Bilateral anterior inferior cerebellar, superior cerebellar, and posterior cerebral arteries fill within normal limits. Flash filling of the right posterior cerebral artery on this injection is likely due to competing flow from the anterior circulation, consistent with a normal variant. No aneurysm, early draining vein, or stenosis is seen. LEFT INTERNAL CAROTID ARTERY INJECTIONS: DSA runs were obtained over the head in PA and lateral views. The distal cervical and intracranial left internal carotid artery opacify well and appear unremarkable. Flash filling of the left posterior cerebral artery from the left posterior communicating artery is seen on this injection. The left internal carotid artery bifurcates normally into widely patent and unremarkable left anterior cerebral and left middle cerebral arteries. No aneurysm, early draining vein, or stenosis is seen. RIGHT COMMON FEMORAL ARTERY INJECTION: DSA run over the right hip was obtained in GALLAGHER view. The right common femoral artery, femoral bifurcation, and distal vasculature opacify well and appear unremarkable. There is no evidence of pseudoaneurysm, stenosis, dissection, or other type of vascular injury. IMPRESSION: Proxima (more content not included)... 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 COMPARISON: CTA head 07/17/2022 ACCESSION NUMBER(S): [id number]; [id number]; [id number]; [id number]; [id number]; [id number] ORDERING CLINICIAN: DAVID FRAZIER TECHNIQUE: Risks including groin site injury, groin hematoma, pseudoaneurysm, retroperitoneal hematoma, vessel dissection, stroke, paralysis, contrast induced nephropathy, and were explained to the patient. Following discussion of risks, benefits, and alternatives, patient agreed to proceed with cerebral angiogram and informed consent was obtained. The patient was monitored throughout for EKG, blood pressure, and pulse oximetry. Moderate sedation services (supervision of administration, induction, and maintenance) were provided by the physician performing the procedure with intravenous fentanyl and versed for 30 minutes. The physician was assisted by an independent trained observer in the continuous monitoring of patient level of consciousness and physiologic status. There were no apparent sedation complications. Total fluoroscopy time was 6.1 minutes. Approximately 70 ML Optiray 320 contrast was employed. Using Seldinger technique and a right common femoral approach a 5 Cambodian sheath was placed. Next a MCS catheter was used for selective injections of the following arteries: Right internal carotid artery, left vertebral artery, left internal carotid artery, right common femoral artery. The catheter and then the sheath were removed. Hemostasis was obtained with hand compression following placement of Mynx device. The patient was taken to a hospital bed for routine post procedure observation and care. There were no apparent complications. FINDINGS: RIGHT INTERNAL CAROTID ARTERY INJECTIONS: DSA runs were obtained over the head in PA, lateral, oblique, and 3D views. The distal cervical and intracranial right internal carotid artery opacify well and appear unremarkable. Filling of the right posterior cerebral artery from the right posterior communicating artery is seen on this injection. The right anterior cerebral artery opacifies well and appears unremarkable. The right middle cerebral artery is occluded proximally, with a dense network of wispy collateral vessels visualized arising near the distal right internal carotid artery and skull base as well as leptomeningeal collateralization from the right anterior and posterior cerebral arteries. Internal carotid artery bifurcates normally into widely patent and unremarkable right anterior cerebral and right middle cerebral arteries. Minimal flash filling of the left anterior cerebral artery with poor visualization of an anterior communicating artery is seen. No aneurysm or early draining vein is seen. LEFT VERTEBRAL ARTERY INJECTION: DSA runs of the head were obtained in PA and lateral views. The distal left vertebral artery is within normal limits. No discrete origin of the left posterior inferior cerebellar artery is visualized, consistent with an AICA-PICA normal variant. Opacification of the vertebrobasilar junction is seen without evidence of aneurysm, vascular malformation, or stenosis. The basilar artery is widely patent and unremarkable. Bilateral anterior inferior cerebellar, superior cerebellar, and posterior cerebral arteries fill within normal limits. Flash filling of the right posterior cerebral artery on this injection is likely due to competing flow from the anterior circulation, consistent with a normal variant. No aneurysm, early draining vein, or stenosis is seen. LEFT INTERNAL CAROTID ARTERY INJECTIONS: DSA runs were obtained over the head in PA and lateral views. The distal cervical and intracranial left internal carotid artery opacify well and appear unremarkable. Flash filling of the left posterior cerebral artery from the left posterior communicating artery is seen on this injection. The left internal carotid artery bifurcates normally into widely patent and unremarkable left anterior cerebral and left middle cerebral arteries. No aneurysm, early draining vein, or stenosis is seen. RIGHT COMMON FEMORAL ARTERY INJECTION: DSA run over the right hip was obtained in GALLAGHER view. The right common femoral artery, femoral bifurcation, and distal vasculature opacify well and appear unremarkable. There is no evidence of pseudoaneurysm, stenosis, dissection, or other type of vascular injury. IMPRESSION: Proximal right middle cerebral artery occlusion, with excellent collateral supply from a dense network of wispy collateral vessels arising near the distal right internal c (more content not included)... 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 COMPARISON: CTA head 07/17/2022 ACCESSION NUMBER(S): [id number]; [id number]; [id number]; [id number]; [id number]; [id number] ORDERING CLINICIAN: DAVID FRAZIER TECHNIQUE: Risks including groin site injury, groin hematoma, pseudoaneurysm, retroperitoneal hematoma, vessel dissection, stroke, paralysis, contrast induced nephropathy, and were explained to the patient. Following discussion of risks, benefits, and alternatives, patient agreed to proceed with cerebral angiogram and informed consent was obtained. The patient was monitored throughout for EKG, blood pressure, and pulse oximetry. Moderate sedation services (supervision of administration, induction, and maintenance) were provided by the physician performing the procedure with intravenous fentanyl and versed for 30 minutes. The physician was assisted by an independent trained observer in the continuous monitoring of patient level of consciousness and physiologic status. There were no apparent sedation complications. Total fluoroscopy time was 6.1 minutes. Approximately 70 ML Optiray 320 contrast was employed. Using Seldinger technique and a right common femoral approach a 5 Cambodian sheath was placed. Next a MCS catheter was used for selective injections of the following arteries: Right internal carotid artery, left vertebral artery, left internal carotid artery, right common femoral artery. The catheter and then the sheath were removed. Hemostasis was obtained with hand compression following placement of Mynx device. The patient was taken to a hospital bed for routine post procedure observation and care. There were no apparent complications. FINDINGS: RIGHT INTERNAL CAROTID ARTERY INJECTIONS: DSA runs were obtained over the head in PA, lateral, oblique, and 3D views. The distal cervical and intracranial right internal carotid artery opacify well and appear unremarkable. Filling of the right posterior cerebral artery from the right posterior communicating artery is seen on this injection. The right anterior cerebral artery opacifies well and appears unremarkable. The right middle cerebral artery is occluded proximally, with a dense network of wispy collateral vessels visualized arising near the distal right internal carotid artery and skull base as well as leptomeningeal collateralization from the right anterior and posterior cerebral arteries. Internal carotid artery bifurcates normally into widely patent and unremarkable right anterior cerebral and right middle cerebral arteries. Minimal flash filling of the left anterior cerebral artery with poor visualization of an anterior communicating artery is seen. No aneurysm or early draining vein is seen. LEFT VERTEBRAL ARTERY INJECTION: DSA runs of the head were obtained in PA and lateral views. The distal left vertebral artery is within normal limits. No discrete origin of the left posterior inferior cerebellar artery is visualized, consistent with an AICA-PICA normal variant. Opacification of the vertebrobasilar junction is seen without evidence of aneurysm, vascular malformation, or stenosis. The basilar artery is widely patent and unremarkable. Bilateral anterior inferior cerebellar, superior cerebellar, and posterior cerebral arteries fill within normal limits. Flash filling of the right posterior cerebral artery on this injection is likely due to competing flow from the anterior circulation, consistent with a normal variant. No aneurysm, early draining vein, or stenosis is seen. LEFT INTERNAL CAROTID ARTERY INJECTIONS: DSA runs were obtained over the head in PA and lateral views. The distal cervical and intracranial left internal carotid artery opacify well and appear unremarkable. Flash filling of the left posterior cerebral artery from the left posterior communicating artery is seen on this injection. The left internal carotid artery bifurcates normally into widely patent and unremarkable left anterior cerebral and left middle cerebral arteries. No aneurysm, early draining vein, or stenosis is seen. RIGHT COMMON FEMORAL ARTERY INJECTION: DSA run over the right hip was obtained in GALLAGHER view. The right common femoral artery, femoral bifurcation, and distal vasculature opacify well and appear unremarkable. There is no evidence of pseudoaneurysm, stenosis, dissection, or other type of vascular injury. IMPRESSION: Proximal right middle cerebral artery occlusion, with excellent collateral supply from a dense network of wispy collateral vessels arising near the distal right internal c (more content not included)... 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 COMPARISON: CTA head 07/17/2022 ACCESSION NUMBER(S): [id number]; [id number]; [id number]; [id number]; [id number]; [id number] ORDERING CLINICIAN: DAVID FRAZIER TECHNIQUE: Risks including groin site injury, groin hematoma, pseudoaneurysm, retroperitoneal hematoma, vessel dissection, stroke, paralysis, contrast induced nephropathy, and were explained to the patient. Following discussion of risks, benefits, and alternatives, patient agreed to proceed with cerebral angiogram and informed consent was obtained. The patient was monitored throughout for EKG, blood pressure, and pulse oximetry. Moderate sedation services (supervision of administration, induction, and maintenance) were provided by the physician performing the procedure with intravenous fentanyl and versed for 30 minutes. The physician was assisted by an independent trained observer in the continuous monitoring of patient level of consciousness and physiologic status. There were no apparent sedation complications. Total fluoroscopy time was 6.1 minutes. Approximately 70 ML Optiray 320 contrast was employed. Using Seldinger technique and a right common femoral approach a 5 Cambodian sheath was placed. Next a MCS catheter was used for selective injections of the following arteries: Right internal carotid artery, left vertebral artery, left internal carotid artery, right common femoral artery. The catheter and then the sheath were removed. Hemostasis was obtained with hand compression following placement of Mynx device. The patient was taken to a hospital bed for routine post procedure observation and care. There were no apparent complications. FINDINGS: RIGHT INTERNAL CAROTID ARTERY INJECTIONS: DSA runs were obtained over the head in PA, lateral, oblique, and 3D views. The distal cervical and intracranial right internal carotid artery opacify well and appear unremarkable. Filling of the right posterior cerebral artery from the right posterior communicating artery is seen on this injection. The right anterior cerebral artery opacifies well and appears unremarkable. The right middle cerebral artery is occluded proximally, with a dense network of wispy collateral vessels visualized arising near the distal right internal carotid artery and skull base as well as leptomeningeal collateralization from the right anterior and posterior cerebral arteries. Internal carotid artery bifurcates normally into widely patent and unremarkable right anterior cerebral and right middle cerebral arteries. Minimal flash filling of the left anterior cerebral artery with poor visualization of an anterior communicating artery is seen. No aneurysm or early draining vein is seen. LEFT VERTEBRAL ARTERY INJECTION: DSA runs of the head were obtained in PA and lateral views. The distal left vertebral artery is within normal limits. No discrete origin of the left posterior inferior cerebellar artery is visualized, consistent with an AICA-PICA normal variant. Opacification of the vertebrobasilar junction is seen without evidence of aneurysm, vascular malformation, or stenosis. The basilar artery is widely patent and unremarkable. Bilateral anterior inferior cerebellar, superior cerebellar, and posterior cerebral arteries fill within normal limits. Flash filling of the right posterior cerebral artery on this injection is likely due to competing flow from the anterior circulation, consistent with a normal variant. No aneurysm, early draining vein, or stenosis is seen. LEFT INTERNAL CAROTID ARTERY INJECTIONS: DSA runs were obtained over the head in PA and lateral views. The distal cervical and intracranial left internal carotid artery opacify well and appear unremarkable. Flash filling of the left posterior cerebral artery from the left posterior communicating artery is seen on this injection. The left internal carotid artery bifurcates normally into widely patent and unremarkable left anterior cerebral and left middle cerebral arteries. No aneurysm, early draining vein, or stenosis is seen. RIGHT COMMON FEMORAL ARTERY INJECTION: DSA run over the right hip was obtained in GALLAGHER view. The right common femoral artery, femoral bifurcation, and distal vasculature opacify well and appear unremarkable. There is no evidence of pseudoaneurysm, stenosis, dissection, or other type of vascular injury. IMPRESSION: Proximal right middle cerebral artery occlusion, with excellent collateral supply from a dense network of wispy collateral vessels arising near the distal right internal c (more content not included)... 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 COMPARISON: CTA head 07/17/2022 ACCESSION NUMBER(S): [id number]; [id number]; [id number]; [id number]; [id number] ORDERING CLINICIAN: DAVID FRAZIER TECHNIQUE: Risks including groin site injury, groin hematoma, pseudoaneurysm, retroperitoneal hematoma, vessel dissection, stroke, paralysis, contrast induced nephropathy, and were explained to the patient. Following discussion of risks, benefits, and alternatives, patient agreed to proceed with cerebral angiogram and informed consent was obtained. The patient was monitored throughout for EKG, blood pressure, and pulse oximetry. Moderate sedation services (supervision of administration, induction, and maintenance) were provided by the physician performing the procedure with intravenous fentanyl and versed for 30 minutes. The physician was assisted by an independent trained observer in the continuous monitoring of patient level of consciousness and physiologic status. There were no apparent sedation complications. Total fluoroscopy time was 6.1 minutes. Approximately 70 ML Optiray 320 contrast was employed. Using Seldinger technique and a right common femoral approach a 5 Cambodian sheath was placed. Next a MCS catheter was used for selective injections of the following arteries: Right internal carotid artery, left vertebral artery, left internal carotid artery, right common femoral artery. The catheter and then the sheath were removed. Hemostasis was obtained with hand compression following placement of Mynx device. The patient was taken to a hospital bed for routine post procedure observation and care. There were no apparent complications. FINDINGS: RIGHT INTERNAL CAROTID ARTERY INJECTIONS: DSA runs were obtained over the head in PA, lateral, oblique, and 3D views. The distal cervical and intracranial right internal carotid artery opacify well and appear unremarkable. Filling of the right posterior cerebral artery from the right posterior communicating artery is seen on this injection. The right anterior cerebral artery opacifies well and appears unremarkable. The right middle cerebral artery is occluded proximally, with a dense network of wispy collateral vessels visualized arising near the distal right internal carotid artery and skull base as well as leptomeningeal collateralization from the right anterior and posterior cerebral arteries. Internal carotid artery bifurcates normally into widely patent and unremarkable right anterior cerebral and right middle cerebral arteries. Minimal flash filling of the left anterior cerebral artery with poor visualization of an anterior communicating artery is seen. No aneurysm or early draining vein is seen. LEFT VERTEBRAL ARTERY INJECTION: DSA runs of the head were obtained in PA and lateral views. The distal left vertebral artery is within normal limits. No discrete origin of the left posterior inferior cerebellar artery is visualized, consistent with an AICA-PICA normal variant. Opacification of the vertebrobasilar junction is seen without evidence of aneurysm, vascular malformation, or stenosis. The basilar artery is widely patent and unremarkable. Bilateral anterior inferior cerebellar, superior cerebellar, and posterior cerebral arteries fill within normal limits. Flash filling of the right posterior cerebral artery on this injection is likely due to competing flow from the anterior circulation, consistent with a normal variant. No aneurysm, early draining vein, or stenosis is seen. LEFT INTERNAL CAROTID ARTERY INJECTIONS: DSA runs were obtained over the head in PA and lateral views. The distal cervical and intracranial left internal carotid artery opacify well and appear unremarkable. Flash filling of the left posterior cerebral artery from the left posterior communicating artery is seen on this injection. The left internal carotid artery bifurcates normally into widely patent and unremarkable left anterior cerebral and left middle cerebral arteries. No aneurysm, early draining vein, or stenosis is seen. RIGHT COMMON FEMORAL ARTERY INJECTION: DSA run over the right hip was obtained in GALLAGHER view. The right common femoral artery, femoral bifurcation, and distal vasculature opacify well and appear unremarkable. There is no evidence of pseudoaneurysm, stenosis, dissection, or other type of vascular injury. IMPRESSION: Proximal right middle cerebral artery occlusion, with excellent collateral supply from a dense network of wispy collateral vessels arising near the distal right internal c (more content not included)... 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 COMPARISON: CTA head 07/17/2022 ACCESSION NUMBER(S): [id number]; [id number]; [id number]; [id number]; [id number]; [id number] ORDERING CLINICIAN: DAVID FRAZIER TECHNIQUE: Risks including groin site injury, groin hematoma, pseudoaneurysm, retroperitoneal hematoma, vessel dissection, stroke, paralysis, contrast induced nephropathy, and were explained to the patient. Following discussion of risks, benefits, and alternatives, patient agreed to proceed with cerebral angiogram and informed consent was obtained. The patient was monitored throughout for EKG, blood pressure, and pulse oximetry. Moderate sedation services (supervision of administration, induction, and maintenance) were provided by the physician performing the procedure with intravenous fentanyl and versed for 30 minutes. The physician was assisted by an independent trained observer in the continuous monitoring of patient level of consciousness and physiologic status. There were no apparent sedation complications. Total fluoroscopy time was 6.1 minutes. Approximately 70 ML Optiray 320 contrast was employed. Using Seldinger technique and a right common femoral approach a 5 Cambodian sheath was placed. Next a MCS catheter was used for selective injections of the following arteries: Right internal carotid artery, left vertebral artery, left internal carotid artery, right common femoral artery. The catheter and then the sheath were removed. Hemostasis was obtained with hand compression following placement of Mynx device. The patient was taken to a hospital bed for routine post procedure observation and care. There were no apparent complications. FINDINGS: RIGHT INTERNAL CAROTID ARTERY INJECTIONS: DSA runs were obtained over the head in PA, lateral, oblique, and 3D views. The distal cervical and intracranial right internal carotid artery opacify well and appear unremarkable. Filling of the right posterior cerebral artery from the right posterior communicating artery is seen on this injection. The right anterior cerebral artery opacifies well and appears unremarkable. The right middle cerebral artery is occluded proximally, with a dense network of wispy collateral vessels visualized arising near the distal right internal carotid artery and skull base as well as leptomeningeal collateralization from the right anterior and posterior cerebral arteries. Internal carotid artery bifurcates normally into widely patent and unremarkable right anterior cerebral and right middle cerebral arteries. Minimal flash filling of the left anterior cerebral artery with poor visualization of an anterior communicating artery is seen. No aneurysm or early draining vein is seen. LEFT VERTEBRAL ARTERY INJECTION: DSA runs of the head were obtained in PA and lateral views. The distal left vertebral artery is within normal limits. No discrete origin of the left posterior inferior cerebellar artery is visualized, consistent with an AICA-PICA normal variant. Opacification of the vertebrobasilar junction is seen without evidence of aneurysm, vascular malformation, or stenosis. The basilar artery is widely patent and unremarkable. Bilateral anterior inferior cerebellar, superior cerebellar, and posterior cerebral arteries fill within normal limits. Flash filling of the right posterior cerebral artery on this injection is likely due to competing flow from the anterior circulation, consistent with a normal variant. No aneurysm, early draining vein, or stenosis is seen. LEFT INTERNAL CAROTID ARTERY INJECTIONS: DSA runs were obtained over the head in PA and lateral views. The distal cervical and intracranial left internal carotid artery opacify well and appear unremarkable. Flash filling of the left posterior cerebral artery from the left posterior communicating artery is seen on this injection. The left internal carotid artery bifurcates normally into widely patent and unremarkable left anterior cerebral and left middle cerebral arteries. No aneurysm, early draining vein, or stenosis is seen. RIGHT COMMON FEMORAL ARTERY INJECTION: DSA run over the right hip was obtained in GALLAGHER view. The right common femoral artery, femoral bifurcation, and distal vasculature opacify well and appear unremarkable. There is no evidence of pseudoaneurysm, stenosis, dissection, or other type of vascular injury. IMPRESSION: Proximal right middle cerebral artery occlusion, with excellent collateral supply from a dense network of wispy collateral vessels arising near the distal right internal c (more content not included)... Normal [facility] CBCon 09-18-2022 Erythrocyte distribution width (RBC) [Ratio] 11.9 % Normal 11.5 - 14.5 [facility] Comment on above: Performed By: #### C BC #### [facility] [id number] [address] Hematocrit (Bld) [Volume fraction] 45.2 % Normal 36.0 - 46.0 [facility] Comment on above: Performed By: #### C BC #### [facility] [address] [address] Hemoglobin (Bld) [Mass/Vol] 15.1 g/dL Normal 12.0 - 16.0 [facility] Comment on above: Performed By: #### C BC #### [facility] [address] [address] MCHC (RBC) [Mass/Vol] 33.4 g/dL Normal 32.0 - 36.0 [facility] Comment on above: Performed By: #### C BC #### [facility] [address] [address] MCV (RBC) [Entitic vol] 101 fL High 80 - 100 [facility] Comment on above: Performed By: #### C BC #### [facility] [address] [address] NUCLEATED RBC 0.0 /100 WBC Normal 0.0-0.0 [facility] Comment on above: Performed By: #### C BC #### [facility] [address] [place] [address] Platelets (Bld) [#/Vol] 357 10*3/uL Normal 150 - 450 [facility] Comment on above: Performed By: #### C BC #### [facility] [address] [address] RBC 4.49 x10E12/L Normal 4.00 - 5.20 [facility] Comment on above: Performed By: #### C BC #### [facility] [address] [address] WBC (Bld) [#/Vol] 7.1 10*3/uL Normal 4.4 - 11.3 [facility] Comment on above: Performed By: #### C BC #### [facility] [address] [place] [address] COAGULATION SCREENon 023 aPTT Coag (Bld) [Time] 35 s Normal 26 - 39 [facility] Comment on above: Result Comment: THE APTT IS NO LONGER USED FOR MONITORING UNFRACTIONATED HEPARIN THERAPY. FOR MONITORING HEPARIN THERAPY, USE THE HEPARIN ASSAY. Performed By: #### C OAGS #### [facility] [address] [address] PT Coag (PPP) [Time] 11.4 s Normal 9.8 - 13.4 [facility] Comment on above: Performed By: #### C OAGS #### [facility] [address] [address] PT, INR 1.0 Normal 0.9 - 1.1 [facility] Comment on above: Performed By: #### C OAGS #### [facility] [address] [address] Initial Visit (Neurosurgery) on 09-18-2022 Initial Visit (Neurosurgery) Diagnoses/Problems Cerebral aneurysm (437.3) (I67.1) Patient Discussion/Summary Ms. Royal is a 66 yo female with history of HLD (diet treated) presenting with numbness/tingling in her hands and a heaviness in her legs. MRI findings were negative for stroke. CTA findings showed a R MCA cutoff with moyamoya like vessels. The patient is recommended to undergo an angiogram for better visualization of the vessels. Additionally, there is a possible 2mm R MCA aneurysm that needs better evaluation. Chief Complaint Patient is being seen for an initial Neurosurgical evaluation and aneurysm. History of Present Illness Ms. Royal is a 66 yo female with history of migraine headaches, HLD, and HSV2, presenting for discussion of possible angiogram for evaluation of R MCA occlusion and possible MCA aneurysm. The patient was found on OP workup of numbness and tingling to have a R MCA occlusion with distal reconsitution and a R MCA 2mm outpouching. The patient's current symptoms do not necessarily correlate to her imaging findings, but will need an angiogram to better assess the possible moyamoya findings seen on CTA. Review of Systems ROS negative except as listed Allergies No Known Drug Allergies Recorded By: Gerri Cohen; 09/18/2022 1:47:59 PM Vitals Vital Signs Recorded: 18Sep2022 01:50PM Sreioctpxaf17.3 F Heart Rate86 Twkxegubupu89 [id number] Uuhbzsjdn02 Height5 ft 5 in Uuvnzl889 lb BMI Jjfzjavalg93.29 kg/m2 BSA Calculated1.93 Tobacco Useb) No Falls Screening (Age 18+)a) No falls within the last year Physical Exam AOX3 PERRL, EOMI 5/5 x 4 SILT no Fisher's, no clonus flat affect Results/Data CTA personally reviewed with MCA cutoff with distal reconstitution with possible moyamoya like vessels MRI with no strokes Attending Note I saw and evaluated the patient. I personally obtained the solis and critical portions of the history and physical exam or was physically present for solis and critical portions performed by the trainee. I reviewed the trainee's documentation and discussed the patient with the trainee. I agree with the trainee's medical decision making, as documented on the trainee's note. Signatures Electronically signed by : Issa Jones MD; Sep 18 2022 2:22PM EST (Author) Electronically signed by : Francisco Yu MD; Sep 18 2022 3:23PM EST (Author) Normal [facility] - Coagulationon 0 09-18-2022 aPTT Coag (PPP) [Time] 35 s 26 - 39 [facility] Work Phone: Comment on above: THE APTT IS NO LONGE R USED FOR MONITORING UNFRACTIONATED HEPARIN THERAPY. FOR MONITORING HEPARIN THERAPY, USE THE HEPARIN ASSAY. INR Coag (PPP) [Relative time] 1.0 {INR} 0.9 - 1.1 -Neuro[facility] Work Phone: PT Coag (PPP) [Time] 11.4 s 9.8 - 13.4 MG-N eurosurge [facility] Work Phone: Laboratory - Hematology and Cell countson 09-18-2022 Erythrocyte distribution width (RBC) [Ratio] 11.9 % See Below [facility] Work Phone: Comment on above: Reference Range: 11. 5 - 14.5 Hematocrit (Bld) [Volume fraction] 45.2 % See Below [facility] Work Phone: Comment on above: Reference Range: 36. 0 - 46.0 Hemoglobin (Bld) [Mass/Vol] 15.1 g/dL See Below [facility] Work Phone: Comment on above: Reference Range: 12. 0 - 16.0 MCHC (RBC) [Mass/Vol] 33.4 g/dL See Below MG- Neurosurge -[facility] Work Phone: Comment on above: Reference Range: 32. 0 - 36.0 MCV (RBC) [Entitic vol] 101 fL above high threshold 80 - 100 [facility]urosurge -[facility] Work Phone: Platelets (Bld) [#/Vol] 357 10*3/uL 150 - 450 [facility]urosurge -[facility] Work Phone: RBC (Bld) [#/Vol] 4.49 {x10E12/L} See Below MG -Neurosurge -[facility] Work Phone: Comment on above: Reference Range: 4.0 0 - 5.20 WBC (Bld) [#/Vol] 7.1 10*3/uL 4.4 - 11.3 MG-Neelam rosurge -[facility] Work Phone: No Panel Informationon 09-18 0.0 {/100_WBC} 0.0-0.0 MG-Neurosu rge -[facility] Work Phone: RENAL FUNCTION PANELon 09-18 Albumin [Mass/Vol] 4.7 g/dL Normal 3.4 - 5.0 [facility] Comment on above: Performed By: #### R ENAL #### [facility] [address] [address] Anion gap [Moles/Vol] 15 mmol/L Normal 10 - 20 [facility] Comment on above: Performed By: #### R ENAL #### [facility] [address] [address] Calcium [Mass/Vol] 10.4 mg/dL Normal 8.6 - 10.6 [facility] Comment on above: Performed By: #### R ENAL #### [facility] [address] [address] Chloride [Moles/Vol] 103 mmol/L Normal 98 - 107 [facility] Comment on above: Performed By: #### R ENAL #### [facility] [address] [address] Creatinine [Mass/Vol] 0.76 mg/dL Normal 0.50 - 1.05 [facility] Comment on above: Performed By: #### R ENAL #### [facility] [address] [address] GFR/1.73 sq M.predicted among non-blacks MDRD (S/P/Bld) [Vol rate/Area] 85 mL/min/{1.73_m2} Normal >90 [facility] Comment on above: Result Comment: CALC ULATIONS OF ESTIMATED GFR ARE PERFORMED USING THE 2020 CKD-EPI STUDY REFIT EQUATION WITHOUT THE RACE VARIABLE FOR THE IDMS-TRACEABLE CREATININE METHODS. https://jasn.asnjournals.org/content//ASN.515122 8091 Performed By: #### R ENAL #### [facility] [address] [address] Glucose [Mass/Vol] 97 mg/dL Normal 74 - 99 [facility] Comment on above: Performed By: #### R ENAL #### [facility] [address] [address] HCO3 (Bld) [Moles/Vol] 28 mmol/L Normal 21 - 32 [facility] Comment on above: Performed By: #### R ENAL #### [facility] [address] [address] Phosphate [Mass/Vol] 4.2 mg/dL Normal 2.5 - 4.9 [facility] Comment on above: Result Comment: The performance characteristics of phosphorus testing in heparinized plasma have been validated by the individual laboratory site where testing is performed. Testing on heparinized plasma is not approved by the FDA; however, such approval is not necessary. Performed By: #### R ENAL #### [facility] [address] [address] Potassium [Moles/Vol] 4.7 mmol/L Normal 3.5 - 5.3 [facility] Comment on above: Performed By: #### R ENAL #### [facility] [address] [address] Sodium [Moles/Vol] 141 mmol/L Normal 136 - 145 [facility] Comment on above: Performed By: #### R ENAL #### [facility] [address] [address] Urea nitrogen [Mass/Vol] 21 mg/dL Normal 6 - 23 [facility] Comment on above: Performed By: #### R ENAL #### [facility] [address] [address] Renal Function Panelon 09-18 Albumin BCP dye [Mass/Vol] 4.7 g/dL 3.4 - 5.0 MG-Neurosurge -[facility] Work Phone: Anion gap [Moles/Vol] 15 mmol/L 10 - 20 MG- Neurosurge -[facility] Work Phone: Calcium [Mass/Vol] 10.4 mg/dL 8.6 - 10.6 MG-Neelam rosurge -[facility] Work Phone: Chloride [Moles/Vol] 103 mmol/L 98 - 107 MG-N eurosurge -[facility] Work Phone: CO2 [Moles/Vol] 28 mmol/L 21 - 32 MG-Neuros urge -[facility] Work Phone: Creatinine [Mass/Vol] 0.76 mg/dL See Below MG- Neurosurge ry-[facility] Work Phone: Comment on above: Reference Range: 0.5 0 - 1.05 Glucose [Mass/Vol] 97 mg/dL 74 - 99 MG-Neelam rosurge -[facility] Work Phone: Phosphate [Mass/Vol] 4.2 mg/dL 2.5 - 4.9 MG-N eurosurge -[facility] Work Phone: Comment on above: The performance eusebio acteristics of phosphorus testing in heparinized plasma have been validated by the individual laboratory site where testing is performed. Testing on heparinized plasma is not approved by the FDA; however, such approval is not necessary. Potassium [Moles/Vol] 4.7 mmol/L 3.5 - 5.3 [facility]- [facility] Work Phone: Sodium [Moles/Vol] 141 mmol/L 136 - 145 MG-Neelam rosurge [facility] Work Phone: Urea nitrogen [Mass/Vol] 21 mg/dL 6 - 23 [facility] Work Phone: Renal Function Panel 85 {mL/min/1.73m2} >90 [facility]urosur[facility] Work Phone: Comment on above: CALCULATIONS OF OMER MATED GFR ARE PERFORMED USING THE 2020 CKD-EPI STUDY REFIT EQUATION WITHOUT THE RACE VARIABLE FOR THE IDMS-TRACEABLE CREATININE METHODS.https://jasn.asnjournals.org/content/early// N.7330118737 Tobacco Screening.on 023 Fall risk assessment a) No falls within the last year [facility] Work Phone: Tobacco use status CPHS b) No [facility] Work Phone: LABORATORYOrdered By: SYSTEM SYSTEM on 08-03-2022 Creatinine [Mass/Vol] 0.79 mg/dL Invalid Interpretation Code 0.55 - 1.02 mg/dL AO ADM SS GFR 88 ml/min/1.73sqm Invalid Interpretation Code AO Chemistry S GFR Non- 73 ml/min/1.73sqm Invalid Interpretation Code AO Chemistry S LABORATORYOrdered By: Sonia Bernstein on 08-03-2022 CRP [Mass/Vol] mg/dL Invalid Interpretation Code 0.0 - 0.9 mg/dL AO Chemistry S LABORATORYOrdered By: Mague De Souza on 08-03-2022 ESR 15 minute reading (Bld) [Velocity] 6 mm/hr Invalid Interpretation Code 0 - 30 mm/hr AO Man Heme SS LABORATORYOrdered By: Sonia Bernstein on 05-03-2022 Basophil, Absolute 0.1 103/mcL Invalid Interpretation Code 0.0 - 0.2 10^3/mcL AO Workflow SS Basophils/100 WBC (Bld) 1.1 % Invalid Interpretation Code 0.0 - 2.5 % AO Workflow SS Eosinophil, Absolute 0.4 103/mcL Invalid Interpretation Code 0.0 - 0.4 10^3/mcL AO Workflow SS Eosinophils/100 WBC (Bld) 7.1 % Invalid Interpretation Code 0.0 - 7.0 % AO Workflow SS Erythrocyte distribution width (RBC) [Ratio] 12.9 % Invalid Interpretation Code 11.5 - 14.5 % AO Workflow SS Hematocrit (Bld) [Volume fraction] 40.4 % Invalid Interpretation Code 37.0 - 47.0 % AO Workflow SS Hemoglobin (Bld) [Mass/Vol] 13.7 G/dL Invalid Interpretation Code 12.0 - 16.0 G/dL AO Workflow SS Lymphocyte, Absolute 1.3 103/mcL Invalid Interpretation Code 0.8 - 3.9 10^3/mcL AO Workflow SS Lymphocytes/100 WBC (Bld) 24.6 % Invalid Interpretation Code 10.0 - 50.0 % AO Workflow SS MCH (RBC) [Entitic mass] 33.7 pg Invalid Interpretation Code 27.0 - 31.2 pg AO Workflow SS MCHC 34.0 G/dL Invalid Interpretation Code 33.0 - 37.0 G/dL AO Workflow SS MCV (RBC) [Entitic vol] 99.2 fL Invalid Interpretation Code 80.0 - 94.0 fL AO Workflow SS Monocyte, Absolute 0.5 103/mcL Invalid Interpretation Code 0.2 - 1.0 10^3/mcL AO Workflow SS Monocytes/100 WBC (Bld) 8.7 % Invalid Interpretation Code 1.7 - 13.0 % AO Workflow SS Neutrophil, Absolute 3.1 103/mcL Invalid Interpretation Code 2.9 - 6.2 10^3/mcL AO Workflow SS Neutrophils/100 WBC (Bld) 58.5 % Invalid Interpretation Code 37.0 - 80.0 % AO Workflow SS Platelet mean volume (Bld) [Entitic vol] 7.5 fL Invalid Interpretation Code 7.4 - 10.4 fL AO Workflow SS Platelets (Bld) [#/Vol] 310 103/mcL Invalid Interpretation Code 130 - 400 10^3/mcL AO Workflow SS RBC (Bld) [#/Vol] 4.07 106/mcL Invalid Interpretation Code 4.20 - 5.40 10^6/mcL AO Workflow SS WBC (Bld) [#/Vol] 5.2 103/mcL Invalid Interpretation Code 4.6 - 10.8 10^3/mcL AO Workflow SS LABORATORYOrdered By: SYSTEM SYSTEM on 05-03-2022 Calcium [Mass/Vol] 9.0 mg/dL Invalid Interpretation Code 8.4 - 10.2 mg/dL AO ADM SS Chloride [Moles/Vol] 104 mmol/L Invalid Interpretation Code 98 - 107 mmol/L AO ADM SS CO2 [Moles/Vol] 31 mmol/L Invalid Interpretation Code 23 - 31 mmol/L AO ADM SS Cobalamin (Vitamin B12) [Mass/Vol] 415 pg/mL Invalid Interpretation Code 211 - 911 pg/mL AH ADM SS Creatinine [Mass/Vol] 0.67 mg/dL Invalid Interpretation Code 0.55 - 1.02 mg/dL AO ADM SS Electrolyte Balance 4.0 mEq/L Invalid Interpretation Code 4.0 - 15.0 mEq/L AO ADM SS GFR 106 ml/min/1.73sqm Invalid Interpretation Code AO Chemistry S GFR Non- 88 ml/min/1.73sqm Invalid Interpretation Code AO Chemistry S Glucose [Mass/Vol] 95 mg/dL Invalid Interpretation Code 80 - 115 mg/dL AO ADM SS Potassium [Moles/Vol] 4.9 mmol/L Invalid Interpretation Code 3.5 - 5.1 mmol/L AO ADM SS Sodium [Moles/Vol] 139 mmol/L Invalid Interpretation Code 136 - 145 mmol/L AO ADM SS TSH Qn 2.87 m[IU]/L Invalid Interpretation Code 0.36 - 3.74 mcIU/mL AO ADM SS Urea nitrogen [Mass/Vol] 20 mg/dL Invalid Interpretation Code 7 - 18 mg/dL AO ADM SS Urea nitrogen/Creatinine [Mass ratio] 30 ratio Invalid Interpretation Code 7 - 27 ratio AO ADM SS LABORATORYOrdered By: Stephanie Galloway on 10-26-2021 Albumin BCP dye [Mass/Vol] 3.8 G/dL Invalid Interpretation Code 3.4 - 4.8 G/dL AO ADM SS Albumin/Globulin [Mass ratio] 1.4 {ratio} Invalid Interpretation Code 1.1 - 2.5 ratio AO ADM SS ALP [Catalytic activity/Vol] 75 U/L Invalid Interpretation Code 40 - 135 U/L AO ADM SS ALT With P-5'-P [Catalytic activity/Vol] 31 U/L Invalid Interpretation Code 14 - 59 U/L AO ADM SS AST With P-5'-P [Catalytic activity/Vol] 21 U/L Invalid Interpretation Code 10 - 40 U/L AO ADM SS Bilirubin [Mass/Vol] 0.5 mg/dL Invalid Interpretation Code 0.2 - 1.0 mg/dL AO ADM SS Calcium [Mass/Vol] 9.2 mg/dL Invalid Interpretation Code 8.4 - 10.2 mg/dL AO ADM SS Chloride [Moles/Vol] 106 mmol/L Invalid Interpretation Code 98 - 107 mmol/L AO ADM SS Cholesterol [Mass/Vol] 223 mg/dL Invalid Interpretation Code 0 - 200 mg/dL AO ADM SS Cholesterol in HDL [Mass/Vol] 54 mg/dL Invalid Interpretation Code 40 - 60 mg/dL AO ADM SS Cholesterol in LDL [Mass/Vol] 148 mg/dL Invalid Interpretation Code 0 - 130 mg/dL AO ADM SS CO2 [Moles/Vol] 30 mmol/L Invalid Interpretation Code 23 - 31 mmol/L AO ADM SS Creatinine [Mass/Vol] 0.77 mg/dL Invalid Interpretation Code 0.55 - 1.02 mg/dL AO ADM SS Electrolyte Balance 5.0 mEq/L Invalid Interpretation Code 4.0 - 15.0 mEq/L AO ADM SS Globulin 2.7 G/dL Invalid Interpretation Code AO ADM SS Glucose [Mass/Vol] 92 mg/dL Invalid Interpretation Code 80 - 115 mg/dL AO ADM SS Potassium [Moles/Vol] 4.7 mmol/L Invalid Interpretation Code 3.5 - 5.1 mmol/L AO ADM SS Protein [Mass/Vol] 6.5 G/dL Invalid Interpretation Code 6.4 - 8.2 G/dL AO ADM SS Sodium [Moles/Vol] 141 mmol/L Invalid Interpretation Code 136 - 145 mmol/L AO ADM SS Triglyceride [Mass/Vol] 103 mg/dL Invalid Interpretation Code 0 - 150 mg/dL AO ADM SS Urea nitrogen [Mass/Vol] 20 mg/dL Invalid Interpretation Code 7 - 18 mg/dL AO ADM SS Urea nitrogen/Creatinine [Mass ratio] 26 ratio Invalid Interpretation Code 7 - 27 ratio AO ADM SS LABORATORYOrdered By: SYSTEM SYSTEM on 10-26-2021 GFR 91 ml/min/1.73sqm Invalid Interpretation Code AO Chemistry S GFR Non- 75 ml/min/1.73sqm Invalid Interpretation Code AO Chemistry S LABORATORYOrdered By: Sonia Bernstein on 05-03-2021 Albumin BCP dye [Mass/Vol] 3.8 G/dL Invalid Interpretation Code 3.4 - 4.8 G/dL AO ADM SS Albumin/Globulin [Mass ratio] 1.3 {ratio} Invalid Interpretation Code 1.1 - 2.5 ratio AO ADM SS ALP [Catalytic activity/Vol] 85 U/L Invalid Interpretation Code 40 - 135 U/L AO ADM SS ALT With P-5'-P [Catalytic activity/Vol] 33 U/L Invalid Interpretation Code 14 - 59 U/L AO ADM SS AST With P-5'-P [Catalytic activity/Vol] 27 U/L Invalid Interpretation Code 10 - 40 U/L AO ADM SS Bilirubin [Mass/Vol] 0.3 mg/dL Invalid Interpretation Code 0.2 - 1.0 mg/dL AO ADM SS Calcium [Mass/Vol] 9.0 mg/dL Invalid Interpretation Code 8.4 - 10.2 mg/dL AO ADM SS Chloride [Moles/Vol] 104 mmol/L Invalid Interpretation Code 98 - 107 mmol/L AO ADM SS Cholesterol [Mass/Vol] 246 mg/dL Invalid Interpretation Code 0 - 200 mg/dL AO ADM SS Cholesterol in HDL [Mass/Vol] 54 mg/dL Invalid Interpretation Code 40 - 60 mg/dL AO ADM SS Cholesterol in LDL [Mass/Vol] 171 mg/dL Invalid Interpretation Code 0 - 130 mg/dL AO ADM SS CO2 [Moles/Vol] 30 mmol/L Invalid Interpretation Code 23 - 31 mmol/L AO ADM SS Creatinine [Mass/Vol] 0.71 mg/dL Invalid Interpretation Code 0.55 - 1.02 mg/dL AO ADM SS Electrolyte Balance 7.0 mEq/L Invalid Interpretation Code AO ADM SS Globulin 2.9 G/dL Invalid Interpretation Code AO ADM SS Glucose [Mass/Vol] 95 mg/dL Invalid Interpretation Code 80 - 115 mg/dL AO ADM SS Potassium [Moles/Vol] 4.4 mmol/L Invalid Interpretation Code 3.5 - 5.1 mmol/L AO ADM SS Protein [Mass/Vol] 6.7 G/dL Invalid Interpretation Code 6.4 - 8.2 G/dL AO ADM SS Sodium [Moles/Vol] 141 mmol/L Invalid Interpretation Code 136 - 145 mmol/L AO ADM SS Triglyceride [Mass/Vol] 105 mg/dL Invalid Interpretation Code 0 - 150 mg/dL AO ADM SS Urea nitrogen [Mass/Vol] 20 mg/dL Invalid Interpretation Code 7 - 18 mg/dL AO ADM SS Urea nitrogen/Creatinine [Mass ratio] 28 ratio Invalid Interpretation Code 7 - 27 ratio AO ADM SS LABORATORYOrdered By: Mague De Souza on 05-03-2021 Basophil, Absolute 0.10 103/mcL Invalid Interpretation Code 0.00 - 0.19 10^3/mcL AO Auto Heme SS Basophils/100 WBC (Bld) 2.0 % Invalid Interpretation Code 0.0 - 2.5 % AO Auto Heme SS Eosinophil, Absolute 0.60 103/mcL Invalid Interpretation Code 0.00 - 0.40 10^3/mcL AO Auto Heme SS Eosinophils/100 WBC (Bld) 11.0 % Invalid Interpretation Code 0.0 - 7.0 % AO Auto Heme SS Erythrocyte distribution width (RBC) [Ratio] 13.1 % Invalid Interpretation Code 11.5 - 14.5 % AO Auto Heme SS Hematocrit (Bld) [Volume fraction] 41.2 % Invalid Interpretation Code 37.0 - 47.0 % AO Auto Heme SS Hemoglobin (Bld) [Mass/Vol] 13.8 G/dL Invalid Interpretation Code 12.0 - 16.0 G/dL AO Auto Heme SS Lymphocyte, Absolute 2.00 103/mcL Invalid Interpretation Code 0.77 - 3.85 10^3/mcL AO Auto Heme SS Lymphocytes/100 WBC (Bld) 35.2 % Invalid Interpretation Code 10.0 - 50.0 % AO Auto Heme SS MCH (RBC) [Entitic mass] 33.1 pg Invalid Interpretation Code 27.0 - 31.2 pg AO Auto Heme SS MCHC (RBC) [Mass/Vol] 33.6 G/dL Invalid Interpretation Code 33.0 - 37.0 G/dL AO Auto Heme SS MCV (RBC) [Entitic vol] 98.6 fL Invalid Interpretation Code 80.0 - 94.0 fL AO Auto Heme SS Monocyte, Absolute 0.50 103/mcL Invalid Interpretation Code 0.15 - 1.00 10^3/mcL AO Auto Heme SS Monocytes/100 WBC (Bld) 9.0 % Invalid Interpretation Code 1.7 - 13.0 % AO Auto Heme SS Neutrophil, Absolute 2.40 103/mcL Invalid Interpretation Code 2.85 - 6.16 10^3/mcL AO Auto Heme SS Neutrophils/100 WBC (Bld) 42.8 % Invalid Interpretation Code 37.0 - 80.0 % AO Auto Heme SS Platelet mean volume (Bld) [Entitic vol] 7.4 fL Invalid Interpretation Code 7.4 - 10.4 fL AO Auto Heme SS Platelets (Bld) [#/Vol] 327 103/mcL Invalid Interpretation Code 130 - 400 10^3/mcL AO Auto Heme SS RBC (Bld) [#/Vol] 4.18 106/mcL Invalid Interpretation Code 4.20 - 5.40 10^6/mcL AO Auto Heme SS WBC (Bld) [#/Vol] 5.60 103/mcL Invalid Interpretation Code 4.60 - 10.80 10^3/mcL AO Auto Heme SS LABORATORYOrdered By: SYSTEM SYSTEM on 05-03-2021 GFR 100 ml/min/1.73sqm Invalid Interpretation Code AO Chemistry S GFR Non- 82 ml/min/1.73sqm Invalid Interpretation Code AO Chemistry S Culture, urine Bacteria identified Cx Nom (U) GNR Poss Pseudomonas sp [facility] Work Phone: Vital Signs Date Time Vital Sign Value Performing Clinician Facility 02-25-2025 14:27-0400 Body height 162.[address] Radha Velasquez DO Work Phone: [facility] 02-25-2025 14:27-0400 Body mass index (BMI) [Ratio] 26.4 kg/m2 Dr. Radha Velasquez DO Work Phone: [facility] 02-25-2025 14:27-0400 Body weight 69.[address] Radha Velasquez DO Work Phone: [facility] 02-25-2025 14:27-0400 Diastolic blood pressure 77 mm[Hg] Dr. Radha Velasquez DO Work Phone: [facility] 02-25-2025 14:27-0400 Heart rate 75 /min Dr. Radha Velasquez DO Work Phone: [facility] 02-25-2025 14:27-0400 Respiratory rate 16 /min Dr. Radha Velasquez DO Work Phone: [facility] 02-25-2025 14:27-0400 Systolic blood pressure 125 mm[Hg] Dr. Radha Velasquez DO Work Phone: [facility] 02-04-2024 10:50-0400 Body height 165.1 cm ENEDELIA GREENE DO [facility] 02-04-2024 10:50-0400 Body temperature 97.52 [degF] ENEDELIA GREENE DO [facility] 02-04-2024 10:50-0400 Body weight 70.5 kg ENEDELIA GREENE [employer] [facility] 02-04-2024 10:50-0400 Diastolic Blood Pressure Non-Invasive 72 mm[Hg] ENEDELIA GREENE DO [facility] 02-04-2024 10:50-0400 Heart rate 86 /min ENEDELIA GREENE DO [facility] 02-04-2024 10:50-0400 Respiratory rate 18 /min ENEDELIA GREENE DO [facility] 02-04-2024 10:50-0400 Systolic Blood Pressure Non-Invasive 141 mm[Hg] ENEDELIA GREENE DO [facility] 09-18-2022 13:50-0400 Body height 165.1 cm Referring Provider Unknown RJ-Vbawabxaegpl-CZ [facility] Work Phone: 09-18-2022 13:50-0400 Body mass index (BMI) [Ratio] 31.29 kg/m2 Referring Provider Unknown MQ-Wsznqsmxtoad-XS [facility] Work Phone: 09-18-2022 13:50-0400 Body surface area Derived from formula 1.93 m2 Referring Provider Unknown UL-Crguvachzbwk-ZP [facility] Work Phone: 09-18-2022 13:50-0400 Body temperature 97.3 [degF] Referring Provider Unknown QB-Xmiedayjvowr-NQ [facility] Work Phone: 09-18-2022 13:50-0400 Body weight 85.28 kg Referring Provider Unknown JA-Vtntwgtmuoth-EJ [facility] Work Phone: 09-18-2022 13:50-0400 Diastolic blood pressure 76 mm[Hg] Referring Provider Unknown AW-Qwsztjbsiinz-BB [facility] Work Phone: 09-18-2022 13:50-0400 Heart rate 86 /min Referring Provider Unknown RM-Pwmyhadelvhj-GL [facility] Work Phone: 09-18-2022 13:50-0400 Respiratory rate 18 /min Referring Provider Unknown FR-Cczpiqkbiudr-LK [facility] Work Phone: 09-18-2022 13:50-0400 Systolic blood pressure 137 mm[Hg] Referring Provider Unknown PZ-Nnwkrbhwqzeo-FK [facility] Work Phone: Encounters Encounter Date Encounter Type Care Provider Facility Start: 03-25-2025 ambulatory Gavin Joseph Facility:[facility] Start: 03-04-2025 End: 03-04-2025 ambulatory DANIELLA JOSEPH DO Facility:[facility] Start: 02-25-2025 End: 02-25-[address] Gavin Joseph MD -[facility] Work Phone: Start: 02-25-2025 End: 02-25-[address] Radha Velasquez DO Work Phone: -[facility] Start: 02-23-2025 End: 02-23-2025 ambulatory DANIELLA JOSEPH DO Facility:[facility] Start: 02-23-2025 End: 02-23-2025 Patient encounter procedure DANIELLA JOSEPH DO [facility] Start: 12-25-2024 End: 12-25-2024 ambulatory RADHA SINDHU DO Facility:[facility] Start: 12-25-2024 End: 12-25-2024 Patient encounter procedure DANIELLA JOSEPH DO [facility] Start: 08-11-2024 End: 08-11-2024 ambulatory RADHA SINDHU DO Facility:[facility] Start: 04-18-2024 ambulatory Zia Jaden Facility:[facility] Start: 04-04-2024 ambulatory Radha Sindhu Facility :[facility] Start: 04-04-2024 End: 04-04-2024 ambulatory Carine Saleem Facility:[facility] Start: 03-19-2024 End: 03-19-2024 ambulatory RADHA SINDHU DO Facility:[facility] Start: 03-19-2024 End: 03-19-2024 Patient encounter procedure RADHA VELASQUEZ DO [facility] Start: 02-04-2024 End: 02-04-2024 Emergency department patient visit ENEDELIA GREENE DO [facility] Start: 08-16-2023 End: 08-17-2023 ambulatory RADHA SINDHU DO Facility:[facility] Start: 08-16-2023 End: 08-16-2023 Patient encounter procedure REMINGTON HAMPTON MD [facility] Start: 03-07-2023 End: 03-08-2023 ambulatory RADHA SINDHU DO Facility:[facility] Start: 03-06-2023 End: 03-07-2023 ambulatory RADHA SINDHU DO Facility:[facility] Start: 03-06-2023 End: 03-06-2023 Patient encounter procedure RADHA CHAVARRIASAY DO [facility] Start: 03-01-2023 End: 03-02-2023 ambulatory RADHA SINDHU DO Facility:[facility] Start: 03-01-2023 End: 03-01-2023 Patient encounter procedure MEAGHAN ROWELL MD [facility] Start: 02-07-2023 End: 02-08-2023 ambulatory RADHA VELASQUEZ DO Facility:[facility] Start: 02-07-2023 End: 02-07-2023 Patient encounter procedure RADHA VELASQUEZ DO [facility] Start: 01-01-2023 End: 01-06-2023 ambulatory RADHA VELASQUEZ DO Facility:[facility] Start: 01-01-2023 End: 01-05-2023 Outreach Lab FLY EDUARDO MD [facility] Start: 11-10-2022 Chart Update Referring Prov ider Unknown TV-Mpankejxvcuq-Tkhtw Work Phone: Start: 11-03-2022 Chart Update Referring Prov ider Unknown HU-Vzehaeqlilyk-Agslc Work Phone: Start: 11-01-2022 End: 11-01-2022 ambulatory David Frazier Facility:[facility] Start: 11-01-2022 End: 11-01-2022 Subsequent hospital visit by physician David Frazier [employer] Work Phone: [facility] Comment on above: Cerebral aneurysm, n onruptured; 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 Francisco Yu Facility:[facility] Start: 08-30-2022 End: 08-31-2022 ambulatory RADHA VELASQUEZ DO Facility:[facility] Start: 08-30-2022 End: 08-30-2022 Patient encounter procedure MEAGHAN ROWELL MD [facility] Start: 08-11-2022 End: 08-11-2022 Patient encounter procedure ENRIQUE LIN MD [facility] Start: 08-03-2022 End: 08-03-2022 Patient encounter procedure RADHA VELASQUEZ DO [facility] Start: 08-01-2022 End: 02-09-2023 Physical therapy management FRANCISCO FRANKLIN DO [facility] Start: 07-25-2022 End: 07-25-2022 Patient encounter procedure RADHA VELASQUEZ DO [facility] Start: 07-17-2022 End: 07-17-2022 Patient encounter procedure RADHA VELASQUEZ DO [facility] Start: 05-03-2022 End: 05-03-2022 Patient encounter procedure RADHA VELASQUEZ DO [facility] Start: 12-13-2021 End: 12-13-2021 Patient encounter procedure [facility], Specimen Start: 10-26-2021 End: 10-26-2021 Patient encounter procedure RADHA VELASQUEZ DO [facility] Start: 06-06-2021 End: 06-06-2021 Patient encounter procedure RADHA VELASQUEZ DO [facility] Start: 05-16-2021 End: 05-16-2021 Patient encounter procedure RADHA VELASQUEZ DO [facility] Start: 05-03-2021 End: 05-03-2021 Patient encounter procedure RADHA VELASQUEZ DO [facility] Procedures Date Procedure Procedure Detail Performing Clinician Start: 11-01-2022 FLUORO HISTORICAL London Castrejon Samantha HAIR MACHINE OPERATOR-CRAB STEAMER Work Phone: Start: 11-01-2022 IR HISTORICAL David A Samantha HAIR MACHINE OPERATOR-CRAB STEAMER Work Phone: Cholecystectomy RADHA ARRINGTON DO Comment on above: left groin Diagnostic cystoscop y and bladder biopsy RADHA VELASQUEZ DO Comment on above: 07/2020 Urine culture Plan of Treatment Date Care Activity Detail Author Start: 02-25-2025 Radionuclide imaging of perfusion of myocardium under exercise stress [facility] Start: 03-11-2023 Screening for malignant neoplasm of colon [facility] Start: 01-12-2023 Influenza vaccination Influenza Vaccine (#1) [facility] Start: 04-02-2022 COVID-19 Vaccine (4 - Moderna series) COVID-19 Vaccine (4 - Moderna series) [facility] Start: 02-24-2021 Pneumococcal Vaccine: 65+ Years (2 - PPSV23 or PCV20) Pneumococcal Vaccine: 65+ Years (2 - PPSV23 or PCV20) [facility] Start: 01-01-2017 DTaP/Tdap/Td Vaccines (1 - Tdap) DTaP/Tdap/Td Vaccines (1 - Tdap) [facility] Start: 2004 Zoster Vaccines (1 of 2) Zoster Vaccines (1 of 2) [facility] Start: 1994 Screening for malignant neoplasm of breast Mammogram [facility] Start: 1972 Hepatitis C screening Hepatitis C Screening [facility] Start: 1955 Lipid panel Lipid Panel [facility] Start: 1954 Screening for malignant neoplasm of colon [facility] Start: 1954 Screening for osteoporosis Bone Density Scan [facility] Start: 1955 Yearly Adult Physical Yearly Adult Physical [facility] Immunizations Immunization Date Immunization Notes Care Provider Whitney tiffanie 02-20-2025 influenza, high dose seasonal, preservative-free; Translations: [Fluzone High-Dose PF Prefilled Syringe ] DANIELLA JOSEPH DO [facility] 04-03-2022 influenza virus vaccine, unspecified formulation David Samantha HAIR MACHINE OPERATOR-CRAB STEAMER Work Phone: [facility] Work Phone: 08-10-2020 COVID-19, mRNA, LNP- S, PF, 100 mcg/ 0.5 mL dose; Translations: [Moderna COVID-19 Vaccine] RADHA CHAVARRIASAY DO [facility] 07-13-2020 COVID-19, mRNA, LNP- S, PF, 100 mcg/ 0.5 mL dose; Translations: [Moderna COVID-19 Vaccine] RADHA CHAVARRIASAY DO [facility] Comment on above: Result Comment: give n by [facility] 02-25-2020 pneumococcal conjuga te vaccine, 13 valent; Translations: [Prevnar 13] RADHA VELASQUEZ DO [facility] 02-25-2020 influenza, injectabl e, quadrivalent, preservative free; Translations: [Fluarix PF Quadrivalent ] RADHA VELASQUEZ DO [facility] 04-29-2019 influenza virus vaccine, unspecified formulation RADHA CHAVARRIASAY DO [facility] Comment on above: Result Comment: Sonia Jones 03-17-2018 influenza virus vaccine, unspecified formulation RADHA VELASQUEZ DO [facility] 03-23-2017 influenza virus vaccine, unspecified formulation RADHA VELASQUEZ DO [facility] 12-31-2016 tetanus and diphther ia toxoids, adsorbed, preservative free, for adult use (5 Lf of tetanus toxoid and 2 Lf of diphtheria toxoid) RADHA VELASQUEZ DO [facility] Comment on above: Result Comment: 03-12-2015 influenza virus vaccine, unspecified formulation RADHA VELASQUEZ DO [facility] 03-13-2014 influenza virus vaccine, unspecified formulation RADHA VELASQUEZ DO [facility] 03-25-2013 influenza virus vaccine, unspecified formulation RADHA VELASQUEZ DO [facility] Payers Date Payer Category Payer Self-pay [id number] 2024 Unknown [id number] 2022 Unknown [id number] 2022 Medicare [id number] 2020 Private Health Insurance [facility] [id number] 2019 Medicare [id number] 2007 Unknown SELF PAY INSURANCE [id number] 1954 Unknown [id number] [id number] 1954 Unknown [id number] 2.840.1.759186.3.579.2. 1954 Unknown [id number] 2.840.1.359248.3.579.2. 1954 Unknown [id number] .840.1.773739.3.579.2. 1954 Unknown [id number] 2.840.1.308433.3.579.2. 1954 Unknown [id number] .0.1.285397.3.579.2. 1954 Unknown [id number] 2.840.1.148008.3.579.2.62 1954 Unknown [id number] .840.1.371621.3.579.2. 1954 Unknown [id number] .840.1.301897.3.579.2. 1954 Unknown [id number] .840.1.544972.3.579.2.62 1954 Unknown [id number] .840.1.746003.3.579.2.62 1954 Unknown [id number] .840.1.616360.3.579.2. 1954 Unknown [id number] 2.840.1.907514.3.579.2.356 1954 Unknown [id number] 2.840.1.481422.3.579.2.356 Unknown Unknown [id number] 2.16.840.1.300691.3.579.2.462 Unknown [id number] 2.16.840.1.810484.3.579.2.462 Unknown [id number] 2.16.840.1.901577.3.579.2.462 Unknown [id number] 2.16.840.1.023593.3.579.2.462 Unknown [id number] 2.16.840.1.046976.3.579.2.462 Social History Date Type Detail Facility Start: 02-12-2019 End: 02-22-2024 Never smoked tobacco (finding) [facility] Start: 1955 Sex Assigned At Female [facility] Tobacco smoking stat [facility] Tobacco smoking consumption unknown [facility] Work Phone: Start: 1955 Sex Assigned At Not on file [facility] Work Phone: Gender identity Not on file [facility] Sexual Orientation [facility] Start: 11-06-2018 Sex Female (finding) [facility] Functional Status Date Assessment Result Facility 02-04-2024 Functional Status Room check performed [facility] 08-01-2022 Functional Status Home Living Ad ditional Information OBJECTIVE BP: 134/78 Posture: slight forward head posture Gait: WNL, no AD Transfers: WNL Sensation: no abnomralities or asymmetries reported Reflexes: NT Edema: none Palpation: no tenderness to touch of shoulder region - lateral aspect of supraspinatus insertion with no symptoms Shoulder ROM: 160deg flexion, functional IR/ER WNL, abduction WNL Special Tests Park et al: Painful Arc: neg for RTC, pos for AC joint Drop Arm: neg Belly press: neg Full Can (delt): neg Empty Can (impin): neg AC Joint: Cross Body Adduction: pos Tenderness on ACJ Palpation: neg [facility] Mental Status Date Assessment Result Facility 02-04-2024 [facility] Status [facility] Clinical Notes 05-03-2022 to 02-25-2025 Note Date & Type Note Facility 02-25-2025 Progress note [facility] 02-25-2025 Progress note Note Date/Time February 25, 2025 2:39pm [facility] [address] [place] [address] OFFICE VISIT Date of Service: 02/25/25 MR#: [id number] Acct: [id number] Name: CYNDIE ROYAL Rep #: [id number] : 1955 Provider: Dr. Nav Joseph MD Age/Sex: 69/F [place] [facility] [place] Status: Signed HPI HPI History of Present Illness Details: This lady diagnosed with CAD on calcium artery scoring last year, is here for follow-up visit. Denies any chest pains or shortness of breath. No orthopnea PND. No ankle edema. 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 Accompanied by: Self Is patient in pain?: No Allergies No Known Allergies Allergy (Unverified 02/25/25 14:27) Medications ?Medication ?Instructions ?Recorded ?Confirmed ?Type mirabegron 50 mg tablet,extended 50 mg PO QDAY 4 02/25/25 History release 24 hr rosuvastatin 10 mg tablet 10 mg PO QDAY 02/22/2402/25 History valacyclovir 1 gram tablet 1,000 mg PO QDAY 02/22/24 1 History aspirin 81 mg tablet,delayed 81 mg PO QDAY 03/11/24 History release (Adult Aspirin Regimen) clobetasol 0.05 % topical cream 1 applic topical .thre e times a 02/25/25 02/25/25 History week ubrogepant 100 mg tablet (Ubrelvy) 100 mg PO ONCE 02/1102/25/25 History Have you fallen in the past year?: No PFSH Medical History Stroke Osteopenia Overactive bladder Lichen sclerosus of vulva Left shoulder tendonitis Surgical History History of cholecystectomy H/O hernia repair Family History Mother Malignant carcinoid tumor of lung Social History current occupational status: employed current occupation: School leisure activities: exercise Smoking Status: Never smoker alcohol intake: never substance use type: does not use caffeine: Yes what type of physical activity do you participate in: walking frequency: 3-4 times per week ROS Const Const: Negative for fatigue or weakness Eyes Eyes: Negative for change in vision ENT ENT: Negative for dizziness or balance problems Cardio Chest Pain: No Palpitations: No Edema: None Resp Respiratory: Negative for SOB with activity, SOB at rest or SOB orthopnea\SOB lying down GI GI: Negative nausea or heartburn Musc Musc: Negative for balance problems Neuro Neuro: Positive for lightheadedness; Negative for dizziness, near syncope, syncope or weakness Endo Endo: Negative for fatigue Cardiology Exam Const Appearance: comfortable and no acute distress Nutritional Appearance: well nourished Neck Neck: no JVD Carotids: Negative bruit Chest Auscultation: Bilateral: Clear to Auscultation Cardio Rate: regular rate Rhythm: regular rhythm Heart sounds: S1 normal and S2 normal Neuro General: patient alert, patient awake and patient oriented x3 Extremities Lower Extremity Edema: None: Bilateral Supplemental Info Supplemental Information Diagnostics: Electrocardiogram Coronary Angiography CT Past Visits: Cardiology Visit Today Assessment and Plan Assessment and Plan (1) Coronary artery disease: Status: Chronic Plan: Continue aspirin. Risk factor modification. Check exercise stress Myoview to evaluate physiological significance and rule out silent ischemia. (2) Dyslipidemia: Status: Chronic Plan: Rosuvastatin. PCP managing. Recommend target LDL cholesterol less than 70 mg/dL. 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 Plan Details Follow Up: 12 Months Coding Level of Care Code Off vis,est,level 4 Diagnoses Coronary artery disease I25.10 Dyslipidemia E78.5 Occlusion of right middle cerebral artery I66.01 Coding Level of Care Code Off vis,est,level 4 Diagnoses Coronary artery disease I25.10 Dyslipidemia E78.5 Occlusion of right middle cerebral artery I66.01 Clinical Quality Measures Falls Risk Screening/Assistive Devices Have you fallen in the past year?: No 02/25/25 1440 <Electronically signed by Gavin Joseph MD> Date _ Gavin Joseph MD Cosigner Signature: Date (if applicable) CC: Dr. Daniella Joseph DO ~ [facility] [employer] Work Phone: 1(418) 967-751708-14-2025 Note* Exam Date Time Procedure Performing Provider Status 12/25/24 10:39 AM Echocardiogram, Adult - CV KRUNAL LOPEZ MD; Auth (Verified) [facility]09-23-2024 Hospital Discharge instructions Patient Education 02/04/2024 11:19:07 Back Care Tips Back Care Tips Caring for your back These are things you can do to prevent a recurrence of acute back pain and to reduce symptoms from chronic back pain: Maintain a healthy weight. If you are overweight, losing weight will help most types of back pain. Exercise is an important part of recovery from most types of back pain. The muscles behind and in front of the spine support the back. This means strengthening both the back muscles and the abdominalmuscles will provide better support for your spine. Swimming and brisk walking are good overall exercises to improve your fitness level. Practice safe lifting methods (below). Practice good posture when sitting, standing and walking. Avoid prolonged sitting. This puts more stress on the lower back than standing or walking. Wear quality shoes with sufficient arch support. Foot and ankle alignment can affect back symptoms.Women should avoid wearing high heels. Therapeutic massage can help relax the back muscles without stretching them. During the first 24 to 72 hours after an acute injury or flare-up of chronic back pain, apply an ice pack to the painful area for 20 minutes and then remove it for 20 minutes, over a period of 60 to 90 minutes, or several times a day. As a safety precaution, do not use a heating pad at bedtime. Sleeping on a heating pad can lead to skin sears or tissue damage. You can alternate ice and heat therapies. Medicines Talk to your healthcare provider before using medicines, especially if you have other medical problems or are taking other medicines. You may use acetaminophen or ibuprofen to control pain, unless your healthcare provider prescribed other pain medicine. If you have chronic conditions like diabetes, liver or kidney disease, stomach ulcers, or gastrointestinal bleeding, or are taking blood thinners, talk with your healthcare provider before taking any medicines. Be careful if you are given prescription pain medicines, narcotics, or medicine for muscle spasm. They can cause drowsiness, affect your coordination, reflexes, and judgment. Do not drive or operate heavy machinery while taking these types of medicines. Take prescription pain medicine only as prescribed by your healthcare provider. Lumbar stretch Here is a simple stretching exercise that will help relax muscle spasm and keep your back more limber. If exercise makes your back pain worse, don t do it. Lie on your back with your knees bent and both feet on the ground. Slowly raise your left knee to your chest as you flatten your lower back against the floor. Hold for 5 seconds. Relax and repeat the exercise with your right knee. Do 10 of these exercises for each leg. Safe lifting method Don t bend over at the waist to lift an object off the floor. Instead, bend your knees and hips in a squat. Keep your back and head upright Hold the object close to your body, directly in front of you. Straighten your legs to lift the object. Lower the object to the floor in the reverse fashion. If you must slide something across the floor, push it. Posture tips Sitting Sit in chairs with straight backs or low-back support. Keep your knees lower than your hips, with your feet flat on the floor. When driving, sit up straight. Adjust the seat forward so you are not leaning toward the steering wheel. A small pillow or rolled towel behind your lower back may help if you are driving long distances. Standing When standing for long periods, shift most of your weight to one leg at a time. Alternate legs every few minutes. Sleeping The best way to sleep is on your side with your knees bent. Put a low pillow under your head to support your neck in a neutral spine position. Avoid thick pillows that bend your neck to one side. Puta pillow between your legs to further relax your lower back. If you sleep on your back, put pillowsunder your knees to support your legs in a slightly flexed position. Use a firm mattress. If your mattress sags, replace it, or use a 1/2-inch plywood board under the mattress to add support. Follow-up care Follow up with your healthcare provider, or as advised. If X-rays, a CT scan or an MRI scan were taken, they will be reviewed by a radiologist. You will benotified of any new findings that may affect your care. Call 911 Call 911 if any of the following occur: Trouble breathing Confusion Very drowsy Fainting or loss of consciousness Rapid or very slow heart rate Loss of bowel or bladder control When to seek medical advice Call your healthcare provider right away if any of the following occur: Pain becomes worse or spreads to your arms or legs Weakness or numbness in one or both arms or legs Numbness in the groin area [id number] [employer]. [address] [place] [address]. All rights reserved. This information is not intended as a substitute for professional medical care. Always follow yourhealthcare professional's instructions. Follow Up Care 02/04/2024 10:47:54 With:RADHA VELASQUEZ DO Address: [address] [place] [address] [place] [address]- [phone] When:2-4 days [facility] 09-23-2024 Note Discharge Instructions Thank you for allowing [facility] to assist you with your healthcare needs. The following is importantdischarge information regarding your hospital visit. Diagnosis from Today's Visit Back pain What to Do Next Instructions from Your Care Team No qualifying data available. Post Acute Orders No qualifying data available. You Need to Schedule the Following Appointments Follow Up with RADHA VELASQUEZ DO When:Within 2-4 days [facility] [facility] [place] [address]- [phone] Allergies NKA Medications Please ask your primary doctor or pharmacist before taking any other medication not listed, including over the counter drugs, herbal medications, vitamins and or supplements as they may interact withyour home medications. What How Much When Why Instructions Last Dose New acetaminophen-hydrocodone (Crawford 325- 5 mg oral tablet) 1 tab(s) by mouth Every 6 hours as needed for as needed for pain Back pain Duration: 3 Days Printed Prescription New ondansetron (ondansetron 4 mg oral tablet, disintegrating) 1 tab(s) by mouth Every 6 hours as needed for Nausea/Vomiting Duration: 4 Days Printed Prescription Unchanged celecoxib (celecoxib 200 mg oral capsule) 1 cap by mouth Two (2) times a day as needed for as needed for pain Unchanged clobetasol topical (clobetasol 0.05% topical cream) 1 application Topical Two (2) times a day Lichen sclerosus of vulva Duration: 30 Days Unchanged mirabegron (Myrbetriq 50 mg oral tablet, extended release) 50 Milligram by mouth Once a day Duration: 90 Days Unchanged rosuvastatin (rosuvastatin 10 mg oral tablet) 1 tab(s) by mouth Once a day Hyperlipidemia LDL goal <55 Duration: 30 Days Unchanged valACYclovir (valACYclovir 1 g oral tablet) 1 tab(s) by mouth Once a day Recurrent herpes labialis Duration: 100 Days Please take this list to your next doctor s visit. Bring all medications you take, including over the counter medications, herbals and other supplements with you to your doctor s visit. Patients and families are reminded to discard old lists and to update any records with all medication providers or retail pharmacies. Medication Leaflets acetaminophen and hydrocodone (a SEET a MIN oh fen and teresa MUÑOZ done) Verdrocet What is the most important information I should know about acetaminophen and hydrocodone? MISUSE OF OPIOID MEDICINE CAN CAUSE ADDICTION, OVERDOSE, OR . Keep the medication in a place where others cannot get to it. Taking opioid medicine during may cause life-threatening withdrawal symptoms in the . Fatal side effects can occur if you use opioid medicine with alcohol, or with other drugs that cause drowsiness or slow your breathing. Stop taking this medicine and call your doctor right away if you have skin redness or a rash that spreads and causes blistering and peeling. What is acetaminophen and hydrocodone? Acetaminophen and hydrocodone is a combination medicine used to relieve moderate to severe pain. Acetaminophen and hydrocodone contains an opioid medicine, and may be habit-forming. Acetaminophen and hydrocodone may also be used for purposes not listed in this medication guide. What should I discuss with my healthcare provider before taking acetaminophen and hydrocodone? You should not use this medicine if you are allergic to acetaminophen or hydrocodone, or if you have: severe asthma or breathing problems; or a blockage in your stomach or intestines. Tell your doctor if you have ever had: breathing problems, sleep apnea (breathing stops during sleep); liver disease; a drug or alcohol addiction; kidney disease; a head injury or seizures; urination problems; or problems with your thyroid, pancreas, or gallbladder. If you use opioid medicine while you are , your baby could become dependent on the drug. This can cause life-threatening withdrawal symptoms in the baby after it is born. Babies born dependent on opioids may need medical treatment for several weeks. Ask a doctor before using opioid medicine if you are . Tell your doctor if you notice severe drowsiness or slow breathing in the nursing baby. How should I take acetaminophen and hydrocodone? Follow all directions on your prescription label. Never take this medicine in larger amounts, or for longer than prescribed. An overdose can damage your liver or cause . Tell your doctor if you feel an increased urge to use more of this medicine. Never share this medicine with another person, especially someone with a history of drug abuse or addiction. MISUSE CAN CAUSE ADDICTION, OVERDOSE, OR . Keep the medicine in a place where others cannot get to it. Selling or giving away this medicine is against the law. Measure liquid medicine carefully. Use the dosing syringe provided, or use a medicine dose-measuring device (not a kitchen spoon). If you need surgery or medical tests, tell the doctor ahead of time that you are using this medicine. You should not stop using this medicine suddenly. Follow your doctor's instructions about tapering your dose. Store at room temperature away from moisture and heat. Keep track of your medicine. You should be aware if anyone is using it improperly or without a prescription. Do not keep leftover opioid medication. Just one dose can cause in someone using this medicine accidentally or improperly. Ask your pharmacist where to locate a drug take-back disposal program.If there is no take-back program, flush the unused medicine down the toilet. What happens if I miss a dose? Since this medicine is used for pain, you are not likely to miss a dose. Skip any missed dose if itis almost time for your next dose. Do not use two doses at one time. What happens if I overdose? Seek emergency medical attention or call the Poison Help line at . An overdose of this medicine can be fatal, especially in a child or other person using the medicine without a prescription. Overdose symptoms may include nausea, vomiting, sweating, severe drowsiness, pinpoint pupils, slow breathing, or no breathing. Your doctor may recommend you get naloxone (a medicine to reverse an opioid overdose) and keep it with you at all times. A person caring for you can give the naloxone if you stop breathing or don't wake up. Your caregiver must still get emergency medical help and may need to perform CPR (cardiopulmonary resuscitation) on you while waiting for help to arrive. Anyone can buy naloxone from a pharmacy or local health department. Make sure any person caring foryou knows where you keep naloxone and how to use it. What should I avoid while taking acetaminophen and hydrocodone? Avoid driving or operating machinery until you know how this medicine will affect you. Dizziness ordrowsiness can cause falls, accidents, or severe injuries. Do not drink alcohol. Dangerous side effects or could occur. Ask a doctor or pharmacist before using any other medicine that may contain acetaminophen (sometimes abbreviated as APAP). Taking certain medications together can lead to a fatal overdose. What are the possible side effects of acetaminophen and hydrocodone? Get emergency medical help if you have signs of an allergic reaction: hives; difficulty breathing; swelling of your face, lips, tongue, or throat. Opioid medicine can slow or stop your breathing, and may occur. A person caring for you should give naloxone and/or seek emergency medical attention if you have slow breathing with long pauses,blue colored lips, or if you are hard to wake up. In rare cases, acetaminophen may cause a severe skin reaction that can be fatal. This could occur even if you have taken acetaminophen in the past and had no reaction. Stop taking this medicine and call your doctor right away if you have skin redness or a rash that spreads and causes blistering andpeeling. Call your doctor at once if you have: noisy breathing, sighing, shallow breathing, breathing that stops; a light-headed feeling, like you might pass out; liver problems--nausea, upper stomach pain, tiredness, loss of appetite, dark urine, sharif-colored stools, jaundice (yellowing of the skin or eyes); low cortisol levels-- nausea, vomiting, loss of appetite, dizziness, worsening tiredness or weakness; o high levels of serotonin in the body--agitation, hallucinations, fever, sweating, shivering, fast heart rate, muscle stiffness, twitching, loss of coordination, nausea, vomiting, diarrhea. Serious breathing problems may be more likely in older adults and in those who are debilitated or have wasting syndrome or chronic breathing disorders. Common side effects include: dizziness, drowsiness, feeling tired; nausea, vomiting, stomach pain; constipation; or headache. This is not a complete list of side effects and others may occur. Call your doctor for medical advice about side effects. You may report side effects to FDA at 4-763-CIB-9862. What other drugs will affect acetaminophen and hydrocodone? You may have breathing problems or withdrawal symptoms if you start or stop taking certain other medicines. Tell your doctor if you also use an antibiotic, antifungal medication, heart or blood pressure medication, seizure medication, or medicine to treat HIV or hepatitis C. Opioid medication can interact with many other drugs and cause dangerous side effects or . Be sure your doctor knows if you also use: cold or allergy medicines, bronchodilator asthma/COPD medication, or a diuretic ('water pill'); medicines for motion sickness, irritable bowel syndrome, or overactive bladder; other opioids--opioid pain medicine or prescription cough medicine; a sedative like Valium--diazepam, alprazolam, lorazepam, Xanax, Klonopin, Versed, and others; drugs that make you sleepy or slow your breathing--a sleeping pill, muscle relaxer, medicine to treat mood disorders or mental illness; drugs that affect serotonin levels in your body--a stimulant, or medicine for depression, Parkinson's disease, migraine headaches, serious infections, or nausea and vomiting. This list is not complete. Other drugs may affect acetaminophen and hydrocodone, including prescription and ffhe-yee-rjzhbkf medicines, vitamins, and herbal products. Not all possible interactions are listed here. Where can I get more information? Your doctor or pharmacist can provide more information about acetaminophen and hydrocodone. Remember, keep this and all other medicines out of the reach of children, never share your medicines with others, and use this medication only for the indication prescribed. Every effort has been made to ensure that the information provided by [employer]. [employer]') is accurate, up-to-date, and complete, but no guarantee is made to that effect. Drug information contained herein may be time sensitive. [employer] information has been compiled for use by healthcare practitioners and consumers in the [place] and therefore [employer] does not warrant that uses outside of the [place] are appropriate, unless specifically indicated otherwise. [employer] drug information does not endorse drugs, diagnose patients or recommend therapy. [employer] drug information isan informational resource designed to assist licensed healthcare practitioners in caring for their p atients and/or to serve consumers viewing this service as a supplement to, and not a substitute for, the expertise, skill, knowledge and judgment of healthcare practitioners. The absence of a warningfor a given drug or drug combination in no way should be construed to indicate that the drug or drug combination is safe, effective or appropriate for any given patient. [employer] does not assume any responsibility for any aspect of healthcare administered with the aid of information [employer] provides. The information contained herein is not intended to cover all possible uses, directions, precautions, warnings, drug interactions, allergic reactions, or adverse effects. If you have questions about the drugs you are taking, check with your doctor, nurse or pharmacist. Copyright 9895-4446 [employer]. Version: 19.02. Revision Date: 08/21/2023. ondansetron (oral) (on JUAN se luna) What is the most important information I should know about ondansetron? You should not use ondansetron if you are also using apomorphine (Apokyn). What is ondansetron? Ondansetron blocks the actions of chemicals in the body that can trigger nausea and vomiting. Ondansetron is used to prevent nausea and vomiting that may be caused by surgery, cancer chemotherapy, or radiation treatment. Ondansetron may be used for purposes not listed in this medication guide. What should I discuss with my health care provider before taking ondansetron? You should not use ondansetron if: you are also using apomorphine (Apokyn); or you are allergic to ondansetron or similar medicines (dolasetron, granisetron, palonosetron). To make sure ondansetron is safe for you, tell your doctor if you have: liver disease; an electrolyte imbalance (such as low levels of potassium or magnesium in your blood); congestive heart failure, slow heartbeats; a personal or family history of long QT syndrome; or a blockage in your digestive tract (stomach or intestines). Ondansetron is not expected to harm an unborn baby. Tell your doctor if you are . It is not known whether ondansetron passes into breast milk or if it could harm a nursing baby. Tell your doctor if you are breast-feeding a baby. Ondansetron is not approved for use by anyone younger than 4 years old. Ondansetron orally disintegrating tablets may contain phenylalanine. Tell your doctor if you have phenylketonuria (PKU). How should I take ondansetron? Follow all directions on your prescription label. Do not take this medicine in larger or smaller amounts or for longer than recommended. Ondansetron can be taken with or without food. The first dose of ondansetron is usually taken before the start of your surgery, chemotherapy, or radiation treatment. Follow your doctor's dosing instructions very carefully. Take the ondansetron regular tablet with a full glass of water. To take the orally disintegrating tablet (Zofran ODT): Keep the tablet in its blister pack until you are ready to take it. Open the package and peel back the foil. Do not push a tablet through the foil or you may damage the tablet. Use dry hands to remove the tablet and place it in your mouth. Do not swallow the tablet whole. Allow it to dissolve in your mouth without chewing. Swallow several times as the tablet dissolves. To use ondansetron oral soluble film (strip) (Zuplenz): Keep the strip in the foil pouch until you are ready to use the medicine. Using dry hands, remove the strip and place it on your tongue. It will begin to dissolve right away. Do not swallow the strip whole. Allow it to dissolve in your mouth without chewing. Swallow several times after the strip dissolves. If desired, you may drink liquid to help swallow the dissolved strip. Wash your hands after using Zuplenz. Measure liquid medicine with the dosing syringe provided, or with a special dose-measuring spoon ormedicine cup. If you do not have a dose-measuring device, ask your pharmacist for one. Store at room temperature away from moisture, heat, and light. Store liquid medicine in an upright position. What happens if I miss a dose? Take the missed dose as soon as you remember. Skip the missed dose if it is almost time for your next scheduled dose. Do not take extra medicine to make up the missed dose. What happens if I overdose? Seek emergency medical attention or call the Poison Help line at . Overdose symptoms may include sudden loss of vision, severe constipation, feeling light-headed, or fainting. What should I avoid while taking ondansetron? Ondansetron may impair your thinking or reactions. Be careful if you drive or do anything that requires you to be alert. What are the possible side effects of ondansetron? Get emergency medical help if you have signs of an allergic reaction: rash, hives; fever, chills, difficult breathing; swelling of your face, lips, tongue, or throat. Call your doctor at once if you have: severe constipation, stomach pain, or bloating; headache with chest pain and severe dizziness, fainting, fast or pounding heartbeats; fast or pounding heartbeats; jaundice (yellowing of the skin or eyes); blurred vision or temporary vision loss (lasting from only a few minutes to several hours); high levels of serotonin in the body--agitation, hallucinations, fever, fast heart rate, overactivereflexes, nausea, vomiting, diarrhea, loss of coordination, fainting. Common side effects may include: diarrhea or constipation; headache; drowsiness; or tired feeling. This is not a complete list of side effects and others may occur. Call your doctor for medical advice about side effects. You may report side effects to FDA at 2-269-OBQ-1654. What other drugs will affect ondansetron? Ondansetron can cause a serious heart problem, especially if you use certain medicines at the same time, including antibiotics, antidepressants, heart rhythm medicine, antipsychotic medicines, and medicines to treat cancer, malaria, HIV or AIDS. Tell your doctor about all medicines you use, and those you start or stop using during your treatment with ondansetron. Taking ondansetron while you are using certain other medicines can cause high levels of serotonin to build up in your body, a condition called 'serotonin syndrome,' which can be fatal. Tell your doctor if you also use: medicine to treat depression; medicine to treat a psychiatric disorder; a narcotic (opioid) medication; or medicine to prevent nausea and vomiting. This list is not complete and many other drugs can interact with ondansetron. This includes prescription and bfyh-ecb-ktezhwz medicines, vitamins, and herbal products. Give a list of all your medicines to any healthcare provider who treats you. Where can I get more information? Your pharmacist can provide more information about ondansetron. Remember, keep this and all other medicines out of the reach of children, never share your medicines with others, and use this medication only for the indication prescribed. Every effort has been made to ensure that the information provided by [employer]. [employer]') is accurate, up-to-date, and complete, but no guarantee is made to that effect. Drug information contained herein may be time sensitive. [employer] information has been compiled for use by healthcare practitioners and consumers in the [place] and therefore [employer] does not warrant that uses outside of the [place] are appropriate, unless specifically indicated otherwise. [employer] drug information does not endorse drugs, diagnose patients or recommend therapy. [employer] drug information isan informational resource designed to assist licensed healthcare practitioners in caring for their p atients and/or to serve consumers viewing this service as a supplement to, and not a substitute for, the expertise, skill, knowledge and judgment of healthcare practitioners. The absence of a warningfor a given drug or drug combination in no way should be construed to indicate that the drug or drug combination is safe, effective or appropriate for any given patient. [employer] does not assume any responsibility for any aspect of healthcare administered with the aid of information [employer] provides. The information contained herein is not intended to cover all possible uses, directions, precautions, warnings, drug interactions, allergic reactions, or adverse effects. If you have questions about the drugs you are taking, check with your doctor, nurse or pharmacist. Copyright 5030-9719 [employer]. Version: 16.01. Revision Date: 12/14/2022. Education Materials Back Care Tips Caring for your back These are things you can do to prevent a recurrence of acute back pain and to reduce symptoms from chronic back pain: Maintain a healthy weight. If you are overweight, losing weight will help most types of back pain. Exercise is an important part of recovery from most types of back pain. The muscles behind and in front of the spine support the back. This means strengthening both the back muscles and the abdominalmuscles will provide better support for your spine. Swimming and brisk walking are good overall exercises to improve your fitness level. Practice safe lifting methods (below). Practice good posture when sitting, standing and walking. Avoid prolonged sitting. This puts more stress on the lower back than standing or walking. Wear quality shoes with sufficient arch support. Foot and ankle alignment can affect back symptoms.Women should avoid wearing high heels. Therapeutic massage can help relax the back muscles without stretching them. During the first 24 to 72 hours after an acute injury or flare-up of chronic back pain, apply an ice pack to the painful area for 20 minutes and then remove it for 20 minutes, over a period of 60 to 90 minutes, or several times a day. As a safety precaution, do not use a heating pad at bedtime. Sleeping on a heating pad can lead to skin sears or tissue damage. You can alternate ice and heat therapies. Medicines Talk to your healthcare provider before using medicines, especially if you have other medical problems or are taking other medicines. You may use acetaminophen or ibuprofen to control pain, unless your healthcare provider prescribed other pain medicine. If you have chronic conditions like diabetes, liver or kidney disease, stomach ulcers, or gastrointestinal bleeding, or are taking blood thinners, talk with your healthcare provider before taking any medicines. Be careful if you are given prescription pain medicines, narcotics, or medicine for muscle spasm. They can cause drowsiness, affect your coordination, reflexes, and judgment. Do not drive or operate heavy machinery while taking these types of medicines. Take prescription pain medicine only as prescribed by your healthcare provider. Lumbar stretch Here is a simple stretching exercise that will help relax muscle spasm and keep your back more limber. If exercise makes your back pain worse, don t do it. Lie on your back with your knees bent and both feet on the ground. Slowly raise your left knee to your chest as you flatten your lower back against the floor. Hold for 5 seconds. Relax and repeat the exercise with your right knee. Do 10 of these exercises for each leg. Safe lifting method Don t bend over at the waist to lift an object off the floor. Instead, bend your knees and hips in a squat. Keep your back and head upright Hold the object close to your body, directly in front of you. Straighten your legs to lift the object. Lower the object to the floor in the reverse fashion. If you must slide something across the floor, push it. Posture tips Sitting Sit in chairs with straight backs or low-back support. Keep your knees lower than your hips, with your feet flat on the floor. When driving, sit up straight. Adjust the seat forward so you are not leaning toward the steering wheel. A small pillow or rolled towel behind your lower back may help if you are driving long distances. Standing When standing for long periods, shift most of your weight to one leg at a time. Alternate legs every few minutes. Sleeping The best way to sleep is on your side with your knees bent. Put a low pillow under your head to support your neck in a neutral spine position. Avoid thick pillows that bend your neck to one side. Puta pillow between your legs to further relax your lower back. If you sleep on your back, put pillowsunder your knees to support your legs in a slightly flexed position. Use a firm mattress. If your mattress sags, replace it, or use a 1/2-inch plywood board under the mattress to add support. Follow-up care Follow up with your healthcare provider, or as advised. If X-rays, a CT scan or an MRI scan were taken, they will be reviewed by a radiologist. You will benotified of any new findings that may affect your care. Call 911 Call 911 if any of the following occur: Trouble breathing Confusion Very drowsy Fainting or loss of consciousness Rapid or very slow heart rate Loss of bowel or bladder control When to seek medical advice Call your healthcare provider right away if any of the following occur: Pain becomes worse or spreads to your arms or legs Weakness or numbness in one or both arms or legs Numbness in the groin area [id number] [employer]. [address] [place] [address], [place] [address]. All rights reserved. This information is not intended as a substitute for professional medical care. Always follow yourhealthcare professional's instructions. Additional Information VACCINATE! IT SAVES LIVES! Members of the community who have not yet received the COVID-19 vaccine and would like to receive it can visit one of [facility] vaccine clinics. There are many vaccine clinic locations within the [facility]. For locations and available times, please visit [email or web address].[email or web address]/. It is important to note that some COVID mobile vaccine clinics are held outdoors and may be canceled in rainy or stormy conditions. To learn more about pediatric vaccinations (ages 5-11), we invite you to visit the [facility] webpage. [email or web address]/[email or web address] learn more about the COVID-19 vaccine, we invite you to visit the CDC website for a list of frequently asked questions. https://www.cdc.gov/coronavirus/2019-ncov/vaccines/faq.html [facility] Patient Portal Access Instructions: Stay connected with your healthcare team and access your personal medical information anytime with the [facility] Patient Portal. If you would like a full copy of your medical records please contact the [facility] Medical Records Department Sunday through Sunday between 8a.m. and 4:30p.m. Please follow the directions below to access the portal: 1.Access the email account you provided upon registration to the hospital.2.Look for an invitation email from [facility].3.Open the email and access the invitation link: Accept Invitation to [facility].Fill in the required fairchild to create your account. Sign into www.[employer] with your username and password that you created in the above steps to stay up to date. You can then view a summary of results, a summary of your visits, and the ability to download your summaries to your computer or send the information securely to a physician. Remember that your healthcare information is confidential, so carefully consider who you will allow to register on the [facility] Patient Portal for access to your information. You can also access the [facility] Patient Portal on the [employer]. Simply click on Health Records under [employer] and then click on the [employer] logo. HOW TO SAFELY DISPOSE OF PRESCRIPTION MEDICATIONS Please use one of the following methods to safely dispose of your unused medications. 1.Use a drug disposal kit: the drug disposal pouch allows you to safely discard your old and unuseddrugs. Ask your nurse to give you one when you are discharged.2.Visit a local take-back location: Many local pharmacies and police departments have programs that collect old and unwanted prescriptiondrugs. Call your local pharmacy or go to http://[employer].SpotXchange/2D1Ih1a to find one close to you.3.Make use of household items: Use cat litter or old coffee grounds to dispose medications if other options arenot available. Mix your drugs with these household products, seal them in an airtight container andthrow it into the garbage. Call [facility]: [phone] to be sure your drugs can be disposed of in this way. Some medicines may require a different approach.4.Never flush your medications down the toilet. IF YOU HAVE BEEN PRESCRIBED AN OPIOIDS FOR PAIN If you have been prescribed an opioid (such as hydrocodone, oxycodone or morphine), it is critical to understand the possible side effects and risks of opioid pain medications. Even when taken as directed, opioids can have several side effects including: Tolerance, meaning you might need to take more of a medication for the same pain relief. Nausea, vomiting and/or constipation. Sleepiness, dizziness, dry mouth, confusion, depression or itching. Physical dependence, meaning you have withdrawal symptoms when a medication is stopped ? this can develop within a few days. KNOW YOUR RESPONSIBILITIES It is important to know exactly how much and how often to take the opioid pain medications you are prescribed. Never take opioids in higher amounts or more often than prescribed. Do not combine opioids with alcohol or other drugs that cause drowsiness, such as benzodiazepines, also known as benzos,including diazepam and alprazolam, muscle relaxants or sleep aids. Never sell or share prescriptionopioids. This is illegal. Store opioids in a secure place and out of reach of others (including children, family, friends and visitors). The last page(s) of this document has been signed and retained as a CHART COPY Signatures Patient Education Materials Back Care Tips Medication Leaflets acetaminophen and hydrocodone, ondansetron (oral) My discharge plan and instructions have been reviewed and explained to me and I,ASHLEY CYNDIE A understand my current condition and have read and understand these discharge instructions. I have received a written copy of the plan/instructions. If I have questions, I am aware that I should contact my doctor. Patient/Auto Mechanic Signature: Date/Time: Relationship to Patient: Witness Name/Signature: Date/Time: [facility]06-21-2023 NotePre-procedure Verification and Time Out: Pre-Procedure Verification and Time Out: Procedure Locationprocedure area HUDDLE - Pre-procedure Verificationcompleted TIME OUT - Final Verificationcompleted immediately prior to procedure start DEBRIEFcompleted General Information: Anesthesia Critical Care: Non-Anesthesia Indication(s)/Pre Procedure Diagnoses: R MCA occlusion Post-Procedure Diagnosis: chronic R MCA occlusion Procedure Name: Diagnostic Cerebral Angiogram Findings: 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 Full report to follow in PACS. Tolerance: good Complications: None Attestation: Note Completion: I am a:Resident/Fellow Attending AttestationI was present for solis portions of the procedure and the procedure lasted longer than 5 minutes. Electronic Signatures: Francisco Yu) (Signed 02-Nov-2022 15:45) Authored: Note Completion Co-Signer: Pre-procedure Verification and Time Out, General Information, Procedure Details, Note Completion Sita Spencer) (Signed 01-Nov-2022 22:35) Authored: Pre-procedure Verification and Time Out, General Information, Procedure Details, Note Completion Last Updated: 02-Nov-2022 15:45 by Francisco Yu)[facility]12-22-2022 Note ORIGINAL EXAMINATION: THREE XRAY VIEWS OF THE RIGHT WRIST 05/03/2022 8:45 am COMPARISON: None. HISTORY: ORDERING SYSTEM PROVIDED HISTORY: Reason for Exam: Chronic right wrist pain; fell onto outstretched wrist about 5 weeks ago FINDINGS: There is no fracture or dislocation of the right wrist. There is mild arthritic narrowing of the radiocarpal joint. There is also mild arthritic narrowing of articulation of the right scaphoid with the trapezium. Moderate arthritic narrowing of the articulation of the trapezium with 1st metacarpal is present with adjacent degenerative spurring. No foreign body is present in the soft tissue. IMPRESSION: No fracture or dislocation of the right wrist. Osteoarthritis is noted, most severely involving the base of the right thumb. Interpreted by: Artie Bolton MD Preliminary Report By: Artie Bolton MD Electronically signed By Artie Bolton MD Dictated Date: 05/04/2022 2:36:12 AM Prelim Date: 05/04/2022 2:38:37 AM Sign Date: 05/04/2022 2:38:37 AM Ordering Provider: [facility]12-21-2022 Note ORIGINAL EXAMINATION: THREE XRAY VIEWS OF THE RIGHT WRIST 05/03/2022 8:45 am COMPARISON: None. HISTORY: ORDERING SYSTEM PROVIDED HISTORY: Reason for Exam: Chronic right wrist pain; fell onto outstretched wrist about 5 weeks ago FINDINGS: There is no fracture or dislocation of the right wrist. There is mild arthritic narrowing of the radiocarpal joint. There is also mild arthritic narrowing of articulation of the right scaphoid with the trapezium. Moderate arthritic narrowing of the articulation of the trapezium with 1st metacarpal is present with adjacent degenerative spurring. No foreign body is present in the soft tissue. IMPRESSION: No fracture or dislocation of the right wrist. Osteoarthritis is noted, most severely involving the base of the right thumb. Interpreted by: Artie Bolton MD Preliminary Report By: Artie Bolton MD Electronically signed By Artie Bolton MD Dictated Date: 05/04/2022 2:36:12 AM Prelim Date: 05/04/2022 2:38:37 AM Sign Date: 05/04/2022 2:38:37 AM Ordering Provider: [facility] complaint Narrative - ReportedPatient is being seen for an initial Neurosurgical evaluation and aneurysm.[id number] Work Phone: Evaluation + Plan note Future Appointments Appointment Date:05/16/2021 10:00:00 AM Scheduled Provider: Location:[facility] Appointment Type:BD Bone Density DEXA Axial Skeleton Appointment Date:05/16/2021 11:00:00 AM Scheduled Provider: Location:[facility] Appointment Type:[facility] Mammogram Screening Bilateral w/ Gunner Future Scheduled Tests Radiology* BD Bone Density DEXA Axial Skeleton 05/16/21 * MA Mammo Screening Bilateral w/ Gunner 05/16/21 [facility] Evaluation + Plan note Future Appointments Appointment Date:06/06/2021 11:15:00 AM Scheduled Provider: Location:[facility] Appointment Type:MA Mammogram Screening Bilateral w/ Gunner Future Scheduled Tests Radiology* MA Mammo Screening Bilateral w/ Gunner 06/06/21 [facility] Evaluation + Plan note Future Appointments Appointment Date:11/01/2021 02:45:00 PM Scheduled Provider:RADHA VELASQUEZ DO Location:[facility] Appointment Type:[facility] Evaluation + Plan note Future Appointments Appointment Date:07/04/2022 11:00:00 AM Scheduled Provider:RADHA VELASQUEZ DO Location:[facility] Appointment Type:[facility] Evaluation + Plan note Future Appointments Appointment Date:07/24/2022 11:00:00 AM Scheduled Provider:FLY EDUARDO MD Location: [facility] Appointment Type:[facility] Appointment Date:10/02/2022 09:00:00 AM Scheduled Provider:RADHA VELASQUEZ DO Location:[facility] Appointment Type:PC OV Future Scheduled Tests Laboratory* Creatinine 07/04/22 [facility] Evaluation + Plan note Future Appointments Appointment Date:08/21/2022 10:30:00 AM Scheduled Provider:FLY EDUARDO MD Location: [facility] Appointment Type: OV Appointment Date:10/02/2022 09:00:00 AM Scheduled Provider:RADHA VELASQUEZ DO Location:[facility] Appointment Type:PC OV Future Scheduled Tests Laboratory* Creatinine 07/04/22 * Creatinine 07/20/22 [facility] evaluation + Plan note Future Appointments Appointment Date:08/04/2022 05:30:00 PM Scheduled Provider: Location:[facility] Appointment Type:PT Treatment [place] Appointment Date:08/08/2022 09:00:00 AM Scheduled Provider: Location:[facility] Appointment Type:PT Treatment - [place] Appointment Date:08/10/2022 05:30:00 PM Scheduled Provider: Location:[facility] Appointment Type:PT Treatment - [place] Appointment Date:08/15/2022 09:00:00 AM Scheduled Provider: Location:[facility] Appointment Type:PT Treatment [facility] Appointment Date:08/17/2022 05:30:00 PM Scheduled Provider: Location:[facility] Appointment Type:PT Treatment [facility] Appointment Date:08/21/2022 10:30:00 AM Scheduled Provider:FLY EDUARDO MD Location: [facility] Appointment Type: OV Appointment Date:08/30/2022 10:45:00 AM Scheduled Provider:MEAGHAN ROWELL MD Location:[facility] Appointment Type:[facility] Appointment Date:10/02/2022 09:00:00 AM Scheduled Provider:RADHA VELASQUEZ DO Location:[facility] Appointment Type:PC OV Future Scheduled Tests Laboratory* Creatinine 07/04/22 [facility] evaluation + Plan note Future Appointments Appointment Date:08/15/2022 09:00:00 AM Scheduled Provider: Location:[facility] Appointment Type:PT [facility] Appointment Date:08/17/2022 05:30:00 PM Scheduled Provider: Location:[facility] Appointment Type:[facility] Appointment Date:08/21/2022 10:30:00 AM Scheduled Provider:FLY EDUARDO MD Location: [facility] Appointment Type: OV Appointment Date:08/30/2022 10:45:00 AM Scheduled Provider:MEAGHAN ROWELL MD Location:[facility] Appointment Type:[facility] Appointment Date:10/02/2022 09:00:00 AM Scheduled Provider:RADHA VELASQUEZ DO Location:[facility] Appointment Type:PC OV Diagnostic Tests Pending * Acetylcholine Receptor Binding Antibody 08/11/22 * Acetylcholine Receptor Blocking Antibody 08/11/22 * Acetylcholine Receptor Modulating Antibody 08/11/22 Future Scheduled Tests Laboratory* Creatinine 07/04/22 [facility] Evaluation + Plan note Future Appointments Appointment Date:08/31/2022 05:30:00 PM Scheduled Provider: Location:[facility] Appointment Type:PT [facility] Appointment Date:10/02/2022 09:00:00 AM Scheduled Provider:RADHA VELASQUEZ DO Location:[facility] Appointment Type:PC OV Appointment Date:11/20/2022 09:30:00 AM Scheduled Provider:FLY EDUARDO MD Location:[facility] Appointment Type: OV Appointment Date:03/01/2023 09:30:00 AM Scheduled Provider: Location:[facility] Appointment Type:CT Angiography Head w/ Contrast Appointment Date:03/07/2023 08:00:00 AM Scheduled Provider:MEAGHAN ROWELL MD Location:[facility] Appointment Type:NS OV Future Scheduled Tests Laboratory* Creatinine 07/04/22 Radiology* CT Angiography Head w/ Contrast 03/01/23 [facility] Evaluation + Plan note Future Appointments Appointment Date:03/01/2023 09:30:00 AM Scheduled Provider: Location:[facility] Appointment Type:CT Angiography Head w/ Contrast Appointment Date:03/07/2023 08:00:00 AM Scheduled Provider:MEAGHAN ROWELL MD Location:[facility] Appointment Type:NS OV Appointment Date:04/02/2023 10:00:00 AM Scheduled Provider:RADHA VELASQUEZ DO Location:[facility] Appointment Type:PC OV Future Scheduled Tests Laboratory* Creatinine 07/04/22 Radiology* CT Angiography Head w/ Contrast 03/01/23 [facility] Evaluation + Plan note Future Appointments Appointment Date:03/01/2023 09:30:00 AM Scheduled Provider: Location:[facility] Appointment Type:CT Angiography Head w/ Contrast Appointment Date:03/07/2023 08:00:00 AM Scheduled Provider:MEAGHAN ROWELL MD Location:[facility] Appointment Type:NS OV Appointment Date:08/01/2023 09:30:00 AM Scheduled Provider:RADHA VELASQUEZ DO Location:[facility] Appointment Type:PC OV Future Scheduled Tests Laboratory* Creatinine 07/04/22 Radiology* MA Mammo Screening Bilateral w/ Gunner 01/31/23 * CT Angiography Head w/ Contrast 03/01/23 [facility] Avieonaluation + Plan note Future Appointments Appointment Date:03/06/2023 11:30:00 AM Scheduled Provider: Location:[facility] Appointment Type:MA Mammogram Screening Bilateral w/ Gunner Appointment Date:03/07/2023 08:00:00 AM Scheduled Provider:MEAGHAN ROWELL MD Location:[facility] Appointment Type:NS OV Appointment Date:08/01/2023 09:30:00 AM Scheduled Provider:RADHA VELASQUEZ DO Location:[facility] [place] Appointment Type:PC OV Future Scheduled Tests Laboratory* Creatinine 07/04/22 Radiology* MA Mammo Screening Bilateral w/ Gunner 03/06/23 [facility] Evaluation + Plan note Future Appointments Appointment Date:03/07/2023 09:30:00 AM Scheduled Provider:MEAGHAN ROWELL MD Location:[facility] Appointment Type:NS OV Appointment Date:08/01/2023 09:30:00 AM Scheduled Provider:RADHA VELASQUEZ DO Location:[facility] [place] Appointment Type:PC OV Future Scheduled Tests Laboratory* Creatinine 07/04/22 [facility] Evaluation + Plan note Future Appointments Appointment Date:01/30/2024 10:00:00 AM Scheduled Provider:RADHA VELASQUEZ DO Location:[facility] [place] Appointment Type:PC OV Diagnostic Tests Pending * Vitamin B6, Plasma 08/16/23 * Vitamin B1 (Thiamine), Blood 08/16/23 * Cytoplasmic Neutro. Antibody 08/16/23 * KEYANNA Panel 08/16/23 [facility] Avieonaluation + Plan note Future Appointments Appointment Date:07/30/2024 10:00:00 AM Scheduled Provider:RADHA VELASQUEZ DO Location:[email or web address] Appointment Type:PC OV Future Scheduled Tests Laboratory* Lipid Profile 02/29/24 * Complete Metabolic Panel 02/29/24 [facility] Evaluation + Plan note Future Appointments Appointment Date:07/30/2024 10:00:00 AM Scheduled Provider:RADHA VELASQUEZ DO Location:[facility] [place] Appointment Type:PC OV [facility] Evaluation + Plan note Future Appointments Appointment Date:02/20/2025 10:00:00 AM Scheduled Provider:DANIELLA JOSEPH DO Location:[facility] Appointment Type:PC Wellness Annual Future Scheduled Tests Radiology* BD Bone Density DEXA Axial Skeleton Adult (21 yrs or older) 07/30/24 [facility] evaluation + Plan note Future Appointments Appointment Date:03/04/2025 02:00:00 PM Scheduled Provider: Location:[facility] Appointment Type:BD Bone Density DEXA Axial Skeleton Appointment Date:02/26/2026 10:00:00 AM Scheduled Provider:DANIELLA JOSEPH DO Location:[facility] Appointment Type:PC Wellness Medicare Future Scheduled Tests Laboratory* TSH with Reflex to FT4 02/23/25 Radiology* BD Bone Density DEXA Axial Skeleton Adult (21 yrs or older) 02/20/25 * BD Bone Density DEXA Axial Skeleton Adult (21 yrs or older) 07/30/24 * BD Bone Density DEXA Axial Skeleton Adult (21 yrs or older) 03/04/25 [facility] Evaluation noteNo assessment information available [facility] Work Phone: Evaluation note* Diagnosis Cerebral aneurysm, nonruptured Occlusion and stenosis of unspecified middle cerebral artery documented in this encounter [facility] Work Phone: Evaluation note* Diagnosis Onset Date Resolution Status Admit Date Coronary artery disease chronic O ctober 2024 1:59pm Dyslipidemia chronic February 1:59pm 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 Royal is a 66 yo female with history of migraine headaches, HLD, and HSV2, presenting for discussion of possible angiogram for evaluation of R MCA occlusion and possible MCA aneurysm. * The patient was found on OP workup of numbness and tingling to have a R MCA occlusion with distal reconsitution and a R MCA 2mm outpouching. The patient's current symptoms do not necessarily correlate to her imaging findings, but will need an angiogram to better assess the possible moyamoya findings seen on CTA. [id number] Work Phone: Hospital course Narrative No data available for this section [facility] Hospital Discharge instructions No data available for this section [facility] Progress note No data available for this section [facility] Reason for referral (narrative)No reason for referral [facility] Work Phone: Summary Purpose Family History No Family History Records Found Relationship Condition Age at Onset Recorded Date/T claudia mother Malignant carcinoid tumor of lung Unknown Advance Directives No Advanced Directives Records FoundNo Advanced Directives Records FoundNo Advanced Directives Records FoundNo Advanced Directives Records FoundNo Advanced Directives Records FoundNo Advanced Directives Records Found Chief Complaint and Reason for Visit Chief Complaint Admit Date 1 Y FU February 25, 2025 1 :59pm Reason for Visit Admit Date Coronary artery disease February 25 1:59pm Dyslipidemia February 25, 2025 1 :59pm Occlusion of right middle cerebral arter y February 25, 2025 1:59pm Additional Source Comments Care Team (unrecognized sect ion and content) Team Status: Active Member Role/Relationship Status Dates Dr. Daniella Joseph DO Primary care physician Active Team Status: Inactive Member Role/Relationship Status Dates Dr. Radha Velasquez DO Referring Provider Active Start: February 25, 2025 End: February 25, 2025 Dr. Gavin Joseph MD Attending physician Active Start: February 25, 2025 End: February 25, 2025 Dr. Daniella Joseph DO Primary care physician Active Start: February 25, 2025 End: February 25, 2025 Goals (unrecognized section and content) Goals may be documented in a n alternate section Care Team (unrecognized sect ion and content) Care Team Personnel Name: RADHA VELASQUEZ DO Position: P4 Physician - Primary Care Member Role: Primary Care Physician Address: Address: [address] [place] [address] Care Team Related Persons Name: SOL ROYAL Care Team Personnel Name: RADHA VELASQUEZ DO Position: P4 Physician - Primary Care Member Role: Primary Care Physician Address: Address: [address] [place] [address] Care Team Related Persons Name: SOL ROYAL INFORMATION SOURCE (unrecogn ized section and content) DATE CREATED AUTHOR 09/20/2022 [email or web address] DATE CREATED AUTHOR AUTHOR'S ORGANIZ ATION 09/23/2022 [facility] DATE CREATED AUTHOR AUTHOR'S ORGANIZ ATION 11/09/2022 [facility] DATE CREATED AUTHOR AUTHOR'S ORGANIZ ATION 08/23/2023 [facility] DATE CREATED AUTHOR AUTHOR'S ORGANIZ ATION 03/08/2025 [facility] DATE CREATED AUTHOR AUTHOR'S ORGANIZ ATION 03/15/2025 [facility] Reason for Visit (unrecogniz ed section and content) Reason Comments Other SP212 FOR RECORDS PERTAINING TO PATIENTS WHO ARE OR HAVE BEEN ENROLLED IN A CHEMICAL DEPENDENCY/SUBSTANCEABUSE PROGRAM, SOME INFORMATION MAY BE OMITTED. This clinical summary was aggregated from multiple sources. Caution should be exercised in using it in the provision of clinical care. This summary normalizes information from multiple sources, and as a consequence, information in this document may materially change the coding, format and clinical context of patient data. In addition, data may be omitted in some cases. CLINICAL DECISIONS SHOULD BE BASED ON THE PRIMARY CLINICAL RECORDS. [employer] provides no warranty or guarantee of the accuracy or completeness of information in this document.
--- NOTE | 2025-03-25 12:03 | STRESSREP ---
Stress Test Report Date: 03/25/2025 Procedure: Exercise tolerance test/imaging study Indications: Coronary artery disease Consent: Per the patient Procedure: The patient exercised on a Burke protocol for 6 minutes achieving a peak heart rate of 127 bpm (84% predicted maximal heart rate) with a peak blood pressure 154/80 mmHg and a peak MET capacity of 7.0 METs. The baseline ECG demonstrated sinus rhythm. The peak exercise ECG showed sinus tachycardia with no ischemic changes. There were no cardiac dysrhythmias pretest, during exercise, or recovery. The functional capacity was considered good for age. There was no complaint of chest discomfort during exercise or recovery. The examination was discontinued secondary to dyspnea. The patient was injected with 11.1 mCi of technetium 99m Cardiolite and subsequently rest SPECT Cardiolite nuclear imaging was obtained in the horizontal long, vertical long, and short axis views. Post-exercise, the patient was injected with 34.3 mCi of technetium 99m Cardiolite and subsequently stress SPECT Cardiolite nuclear imaging was obtained in the horizontal long, vertical long, and short axis views. A gated Cardiolite study at peak stress was obtained. Rest and stress SPECT Cardiolite nuclear imaging status post realignment, normalization, and attenuation correction, demonstrates the appearance of relative uniform tracer uptake and myocardial perfusion appearing within normal limits. There is end systolic thickening and brightening. The gated Cardiolite study demonstrates myocardial thickening and inward wall motion. The reported LVEF is 91%. Impression: 1. Technically adequate exercise tolerance test 2. Peak exercise ECG with no ischemic changes 3. There were no cardiac dysrhythmias pretest, during exercise, or recovery 4. Rest and stress SPECT Cardiolite nuclear imaging demonstrate relative uniform tracer uptake and myocardial perfusion appearing within normal limits. 5. The gated Cardiolite study reports an LVEF of 91%. This note was generated with [employer] software. It may contain incorrect words, spelling, and punctuation that were not noted in checking the note before signing.
== END | disposition home or self-care (01) ==
LOC: CVS 07:06
PROVIDERS: PCP Student in an Organized Health Care Education/Training Program; Referring Provider Internal Medicine Cardiovascular Disease; Visit Provider Internal Medicine Cardiovascular Disease
DX: I25.10 Atherosclerotic heart disease of native coronary artery without angina pectoris (principal); E78.5 Hyperlipidemia, unspecified; I66.01 Occlusion and stenosis of right middle cerebral artery
CPT/HCPCS: 78452; 93017; A9500; A4216